=== PATIENT | female | born 1940 | race Caucasian/White ===

== ENCOUNTER 2017-12-13 22:48 | Emergency (ER) | payer OTHER ==
[~2017-12-13] VITALS: Ht 152.4 cm; Wt 107.9 kg
[2017-12-13 22:48] VITALS: TEMP 37.1; Ht 152.4 cm; Wt 107.9 kg
[~2017-12-13 22:48] MED LIST: ACET-1346 PO; ADVIN25/60 INH; APR25 PO; ASPCH81X PO; CITA40TA4 PO; CRG3125 PO; FERR325T18 PO; FSM70 PO; IPRASOL4 INH; LSX/80 PO; MICO1POW8 TOP; MULTCAP42 PO; NITR0.2D3 TD; OXGN; POTA20TA16 PO; PRED10TA PO; SKINCRE34 TOP; SPIR50TA2 PO; TIOTCAP INH
--- NOTE | 2017-12-13 23:30 | EMERGENCY ROOM VISIT NOTE ---
History Report prepared by Judith: Kathy Do Under the Supervision of: Dr. Laurita Rivas D.O. First contact with patient: 23:09 Chief Complaint: EYE ASSESSMENT Stated Complaint: EYE ASSESSMENT, PINK EYE History of Present Illness The patient is a 77 year old female who presents to the Emergency Room with complaints of an eye assessment. The patient reports that her vision in her left eye has been blurry and that this came on suddenly this afternoon. The patient also reports that her eye has been red and has had drainage. She rates the pain at a 5/10. She states that she has not had problems with her eye before and reports that she has not done anything out of the ordinary the last several days. She denies having a cough, chills, headache, nausea, and vomiting. The patient reports that she has Lupus and congestive heart failure. Source of History: patient Onset: this afternoon Position: eye (left) Symptom Intensity: rated at a 5/10 Quality: other (blurry vision, red, draining ) Timing: other (sudden) Associated Symptoms: No chills, No headache, No cough, No nausea, No vomiting Review of Systems See HPI for pertinent positives & negatives. A total of 10 systems reviewed and were otherwise negative. Past Medical & Surgical Medical Problems: (1) Anemia (2) CHF exacerbation (3) Chronic respiratory failure (4) CKD (chronic kidney disease) stage 3, GFR 30-59 ml/min (5) Depression (6) History of adenomatous polyp of colon (7) history of positive PPD (8) Hypertension (9) Hypertensive heart failure (10) Lupus (11) Osteoporosis (12) Restrictive lung disease (13) Sleep apnea (14) Systemic lupus erythematosus (15) UTI (urinary tract infection) (16) Weakness Surgical Problems: (1) History of - hysterectomy (2) History of - tubal ligation (3) History of appendectomy (4) History of cholecystectomy (5) History of tonsillectomy Family History Gallbladder disease Heart disease Hypertension Lung disease Social History Smoking Status: Former Smoker Alcohol Use: none Drug Use: none Marital Status: Occupation Status: retired Current/Historical Medications Scheduled Alendronate Sodium (Alendronate Sodium), 70 MG PO WK Aspirin (Aspirin Chewable), 81 MG PO DAILY Carvedilol (Carvedilol), 3.125 MG PO BID Citalopram (Citalopram Hydrobromide), 40 MG PO DAILY Eucerin (Eucerin), 1 APPLN TOP DIRECTED Ferrous Gluconate (Ferrous Gluconate), 1 TAB PO BID Fluticasone Prop/Salmeterol (Advair Diskus 250/50 60 Dose), 1 PUFF INH BID Furosemide (Lasix), 80 MG PO DAILY Home O2 Therapy (Oxygen), 2-3 LITERS NA CONTINOUS Hydralazine Hcl (Apresoline), 12.5 MG PO TID Miconazole Nitrate (Topical) (Miconazole Nitrate), 1 APPLN TOP DIRECTED Multiple Vitamin (Multivitamins), 1 CAP PO DAILY Nitroglycerin (Nitroglycerin Transdermal), 1 PATCH TD ONAMOFFPM Potassium Ext Rel (Klor-Con), 20 MEQ PO BID Prednisone (Prednisone), 10 MG PO DAILY Spironolactone (Aldactone), 50 MG PO DAILY Tiotropium [place] (Spiriva Handihaler), 1 CAP INH DAILY Scheduled PRN Acetaminophen (Acetaminophen), 650 MG PO Q4H PRN for Pain or Fever Ipratropium-Albuterol (Duoneb), 1 VIAL INH Q6H PRN for SOB/Wheezing Allergies Coded Allergies: No Known Allergies (Verified , 05/08/16) Physical Exam Vital Signs Date Time Temp Pulse Resp B/P (MAP) Pulse Ox O2 Delivery O2 Flow Rate FiO2 12/14/17 01:07 98 20 132/96 91 12/13/17 22:48 37.1 109 16 183/82 91 Nasal Cannula 2.0 Right Eye Acuity: 20/100 Left Eye Acuity: unmeasurable Physical Exam HEENT: Head - normocephalic and atraumatic. Pupils are equal, round, and reactive to light. Extraocular eye muscles are intact and sclera are anicteric. There is obvious scleral injection to the left eye. There are some small macular lesions noted below the left eye with some edema to the left eyelid. The eye is watering. Nose - moist nasal mucosa without discharge. Mouth - moist buccal mucosa. Oropharynx is nonerythematous and there is no tonsillar exudate or edema noted. Neck: Supple; no JVD, nuchal rigidity, cervical lymphadenopathy. Heart: Regular rate and rhythm. 2/6 systolic ejection murmur. Edgar best over pulmonic valve. Lungs: Clear to auscultation bilaterally with no wheezes, rales, or rhonchi. Abdomen: Soft, completely nontender, nondistended, with good bowel sounds. There are no palpable pulsatile masses or hepatosplenomegaly. There is no guarding, rigidity, or rebound noted. Extremities: No evidence of cyanosis or clubbing. Right lower extremity is edematous compared to the left. There are easily palpable peripheral pulses. Skin: Extremely scaly secondary to lupus. Medical Decision & Procedures Medications Administered Medications (Trade) Dose Ordered Sig/Reid Route Start Time Stop Time Status Last Admin Dose Admin Acetaminophen (Tylenol Tab) 1,000 mg NOW STAT PO 12/14/17 00:17 12/14/17 00:18 DC 12/14/17 00:22 1,000 MG Ciprofloxacin HCl (Ciprofloxacin 0.3% Op Soln) 2 drops NOW ONCE OPL 12/14/17 00:30 12/14/17 00:31 DC 12/14/17 00:21 2 DROPS Procedure Slit Lamp Examination Indication: Left eye irritation and blurry vision The left eye was prepped with topical proparacaine. Slit lamp examination was performed in the standard fashion. Cornea appeared to have a large corneal abrasion/ulceration at the 2 o'clock position with other superficial corneal abrasions over the entire cornea. The anterior chamber is quiet. Significant scleral injection is present. There is a large amount of yellow/bloody discharge present. A culture was taken fluorescein examination performed and revealed large corneal abrasion/ulceration. No foreign bodies noted. Negative Leona sign. The patient tolerated the procedure well without complication. Medications Tylenol Tab 1,000 mg PO. Ciprofloxacin HCl 2 drops OPL. ED Course 2314: Past medical records reviewed. The patient was evaluated in room B4B. A complete history and physical exam was performed. 0017: Ordered Tylenol Tab 1,000 mg PO. A slit-lamp exam was performed and revealed a large corneal abrasion/ulceration. 0030: Ordered Ciprofloxacin HCl 2 drops OPL. 0045: Upon reevaluation, the patient is resting. I discussed findings and results with her. She verbalized agreement of the treatment plan. She was discharged home. Medical Decision The patient is a 77 year old female who presents to the ED with an eye assessment. Differential diagnosis includes corneal foreign body, corneal laceration, conjunctivitis, pink eye, herpes ophthalmicus. This is a 77-year-old female patient with sudden onset of left eye irritation, burning, tearing, blurry vision and pain. The patient felt a foreign body sensation in the eye throughout the day. On physical exam, the patient has a fairly large corneal abrasion/ulceration around 2:00. There was a thick yellow/ bloody mucus coming from the eye. This was cultured. The lid was inverted and no foreign bodies were identified. I have some concern for the findings on slit-lamp examination. The patient does have a history of lupus. I have asked case management to work on ophthalmology follow- up later today. In the meantime, the patient will start Ciloxan eyedrops and use Tylenol for pain. Medication Reconcilliation Current Medication List: was personally reviewed by me Blood Pressure Screening Patient's blood pressure: Elevated blood pressure Blood pressure disposition: Elevated BP felt to be situational Impression Primary Impression: Corneal abrasion, left Scribe Attestation The scribe's documentation has been prepared under my direction and personally reviewed by me in its entirety. I confirm that the note above accurately reflects all work, treatment, procedures, and medical decision making performed by me. Departure Information Dispostion Home / Self-Care Referrals Joey Reyes MD (PCP) Jc Alford M.D. Forms HOME CARE DOCUMENTATION FORM, IMPORTANT VISIT INFORMATION, WORK / SCHOOL INSTRUCTIONS Patient Instructions ED Eye Injury Corneal Abrasion, [facility] Additional Instructions Rest Tylenol - 2 tabs. every 6 hours for pain. You will be contacted by Dr. Alford's office for appointment today Ciloxan eye drops - 2 drops to left eye every 4 hours Return to the ER if symptoms worsen Problem Qualifiers Primary Impression: Corneal abrasion, left Encounter type: initial encounter Qualified Codes: S05.02XA - Injury of conjunctiva and corneal abrasion without foreign body, left eye, initial encounter
[2017-12-13] MEDS ORDERED: PROPARACAINE HCL 0.5% OP SOLN 15 ML BTL OPL STA (23:31)
[2017-12-13] MEDS ORDERED: PROPARACAINE HCL 0.5% OP SOLN 15 ML BTL ONE (23:31)
[2017-12-14] MEDS ORDERED: ACETAMINOPHEN 500 MG TAB PO STA (00:17)
[2017-12-14] MEDS ORDERED: CIPROFLOXACIN HCL 0.3% OP SOLN 2.5 ML BTL OPL ONE (00:30)
[2017-12-14 01:07] VITALS: BP 132/96; PULSE 98; O2SAT 91
== END 2017-12-14 01:09 | disposition home or self-care (01) ==
LOC: EDBD 22:48 → C.EDB 22:49
DX: S05.02XA Injury of conjunctiva and corneal abrasion without foreign body, left eye, initial encounter (principal); X58.XXXA Exposure to other specified factors, initial encounter; D64.9 Anemia, unspecified; J96.10 Chronic respiratory failure, unspecified whether with hypoxia or hypercapnia; M32.9 Systemic lupus erythematosus, unspecified; F32.9 Major depressive disorder, single episode, unspecified; I13.0 Hypertensive heart and chronic kidney disease with heart failure and stage 1 through stage 4 chronic kidney disease, or unspecified chronic kidney disease; I50.9 Heart failure, unspecified; N18.3 Chronic kidney disease, stage 3 (moderate); M81.0 Age-related osteoporosis without current pathological fracture; G47.30 Sleep apnea, unspecified; Z79.82 Long term (current) use of aspirin; Z79.52 Long term (current) use of systemic steroids; Z99.81 Dependence on supplemental oxygen; Z98.51 Tubal ligation status; Z90.710 Acquired absence of both cervix and uterus; Z90.49 Acquired absence of other specified parts of digestive tract; Z86.010 Personal history of colon polyps; Z87.440 Personal history of urinary (tract) infections; Z87.891 Personal history of nicotine dependence; Z82.49 Family history of ischemic heart disease and other diseases of the circulatory system; Z83.79 Family history of other diseases of the digestive system; Z83.6 Family history of other diseases of the respiratory system

== ENCOUNTER 2019-09-07 23:48 | Inpatient (IN) ==
[2019-09-08] MEDS ORDERED: HYDROCORTISONE SOD SUCCINATE 100 MG/2 ML VIAL IV STA (00:02)
[2019-09-08] MEDS ORDERED: HYDROCORTISONE SOD SUCCINATE 100 MG/2 ML VIAL ONE (00:03)
[2019-09-08] MEDS ORDERED: METOPROLOL TARTRATE 1 MG/ML VIAL IV PRN (00:03)
[2019-09-08] MEDS ORDERED: FUROSEMIDE 40 MG/4 ML VIAL IV STA (00:05)
[2019-09-08] MEDS ORDERED: METOPROLOL TARTRATE 1 MG/ML VIAL IV ONE (00:05)
[2019-09-08] MEDS ORDERED: LIDOCAINE HCL 4% w/ Afrin 4 ML VIAL STA (00:08)
[2019-09-08] MEDS ORDERED: MAGNESIUM SULFATE / D5W 1 GM/100 ML BAG IV ONE (00:09)
[2019-09-08] MEDS ORDERED: NITROGLYCERIN 2% OINTMENT 30GM TUBE EXT STA (00:11)
[2019-09-08 00:17] LABS: Basophils # (auto) 0.01 K/uL (0-0.2); Basophils % (auto) 0.1 %; Eosinophils # (auto) 0.07 K/uL (0-0.5); Eosinophils % (auto) 0.4 %; Hematocrit (blood only) 40.9 % (37-47); Hemoglobin 13.3 g/dL (12.0-16.0); Immature Granulocytes # (auto) 0.14 K/uL (0.00-0.02); Immature Granulocytes % (auto) 0.8 %; Lymphocytes # (auto) 1.55 K/uL (1.2-3.4); Mean Corpuscular Hemoglobin 31.5 pg (25-34); Mean Corpuscular Hgb Conc 32.5 g/dL (32-36); Mean Corpuscular Volume 96.9 fL (80-100); Monocytes # (auto) 1.75 K/uL (0.11-0.59); Monocytes % (auto) 10.1 %; Neutrophils # (auto) 13.77 K/uL (1.4-6.5); Neutrophils % (auto) 79.6 %; Platelet Count 288 K/uL (130-400); RDW Coefficient of Variation 15.6 % (11.5-14.5); Red Blood Count 4.22 M/uL (4.2-5.4); White Blood Count 17.29 K/uL (4.8-10.8)
[2019-09-08 00:23] LABS: iSTAT Creatinine 1.7 mg/dl (0.6-1.3); iSTAT Hemoglobin 14.3 g/dl (12.0-16.0); iSTAT Ionized Calcium 1.11 mmol/l (1.12-1.32); iSTAT Potassium 4.9 mEq/L (3.3-5.0)
[2019-09-08] MEDS ORDERED: PIPERACILLIN/TAZOBACTAM 4.5 GM/120 ML BAG IV ONE (00:27)
[2019-09-08] MEDS ORDERED: PIPERACILL/TAZOBAC CONSULT ACTIVE PRN (00:27)
[2019-09-08] MEDS ORDERED: LEVOFLOXACIN/D5W 750 MG/150 ML BAG IV STA (00:27)
[2019-09-08 00:36] LABS: Alanine Aminotransferase 55 U/L (12-78); Albumin Level 2.9 gm/dl (3.4-5.0); Aspartate Aminotransferase 22 U/L (15-37); BUN Creatinine Ratio 43.1 (10-20); Blood Urea Nitrogen 74 mg/dl (7-18); Carbon Dioxide 28 mmol/L (21-32); Chloride 96 mmol/L (98-107); Creatinine Clr Calc Pharmacy 31.9 ml/min; Est GFR (African American) 32.7; Est GFR (Non-African American) 28.2; Glucose 200 mg/dl (70-99); Partial Thromboplastin Ratio 0.9; Partial Thromboplastin Time 23.1 Seconds (21.0-31.0); Potassium 4.8 mmol/L (3.5-5.1); Prothrombin Time 10.7 Seconds (9.0-12.0); Sodium 130 mmol/L (136-145)
[2019-09-08 00:41] LABS: Albumin Globulin Ratio 0.7 (0.9-2); Alkaline Phosphatase 121 U/L (45-117); Bilirubin,Total 1.1 mg/dl (0.2-1); Creatine Kinase 18 U/L (26-192); Creatine Kinase MB 1.3 ng/ml (0.5-3.6); NT Pro B Type Natriuretic Pept 3409 pg/ml (0-1800); Total Protein 6.9 gm/dl (6.4-8.2); Troponin I < 0.015 ng/ml (0-0.045)
[2019-09-08 01:01] LABS: Appearance Urine Turbid (Clear); Bacteria Urine Automated 4+ (Negative); Bilirubin Urine Negative (Negative); Blood Urine 2+ (Negative); Color Urine Yellow; Epithelial Cell Urine Auto >30 /lpf (0-5); Glucose Urine UA Negative (Negative); Ketones Urine Negative (Negative); Leukocyte Esterase Urine 3+ (Negative); Nitrite Urine Positive (Negative); Protein Urine Trace (Negative); Specific Gravity Urine 1.013 (1.000-1.030); Urobilinogen Urine Negative (Negative); WBC Urine Automated >30 /hpf (0-5); pH Urine 5.5 (4.5-7.5)
[2019-09-08] MEDS ORDERED: OPTIRAY 320 125ml IV PRN (01:15)
[2019-09-08] MEDS ORDERED: ONDANSETRON INJ 2 MG/ML 2 ML VIAL IV STA (01:44)
[2019-09-08] MEDS ORDERED: ONDANSETRON INJ 2 MG/ML 2 ML VIAL ONE (01:44)
[2019-09-08] MEDS ORDERED: XOPENEX/ATROVENT 1.25mg/0.5MG NEB COMBO NEB STA (01:53)
[2019-09-08] MEDS ORDERED: LEVALBUTEROL 1.25MG/0.5ML NEB INH STA (01:59)
[2019-09-08] MEDS ORDERED: IPRATROPIUM BROMIDE NEB SOLN 0.02% 2.5 ML VIAL INH STA (01:59)
[2019-09-08 02:03] LABS: Magnesium 2.6 mg/dl (1.8-2.4)
[2019-09-08 02:35] LABS: Base Excess ABG -6.1 mEq/L (-9-1.8); HCO3 ABG 20 mmol/L (19-24); PCO2 ABG 42 mmHg (35-46); PO2 ABG 85 mm/Hg (80-95)
[2019-09-08 02:36] LABS: Allen Test Pos (Pos)
[2019-09-08 02:47] LABS: Hematocrit (blood only) 38.2 % (37-47); Hemoglobin 12.4 g/dL (12.0-16.0)
[2019-09-08] MEDS ORDERED: DIGOXIN 500 MCG/2 ML AMP IV ONE (04:20)
[2019-09-08] MEDS ORDERED: DIGOXIN 250 MCG in SYRINGE 9 ML IV STA ×2 (04:20→05:50)
[2019-09-08] MEDS ORDERED: ALBUMIN 25% 50 ML IV ONE (04:20)
[2019-09-08] MEDS ORDERED: DEXAMETHASONE SOD PHOSPHATE 4 MG in SYRINGE 0 ML IV STA (04:26)
[2019-09-08] MEDS ORDERED: DEXAMETHASONE SOD INJ 4 MG/ML VIAL IV STA (04:28)
--- NOTE | 2019-09-08 04:47 | History & Physical Report ---
Date of Service September 08, 2019 Assessment & Plan (1) Respiratory failure: Acute on chronic hx chronic respiratory failure secondary to COPD/ILD as per records on home O2 Multifactorial : COPD exacerbation secondary to HCAP, rule out aspiration, possible sepsis, immunocompromised patient, history SLE on chronic steroid Rx Pulmonary congestion, hx chronic diastolic heart failure (EF 55 to 60%, TTE 2019) Epistaxis, currently resolved post anterior nasal packing status post patient removal at the ER New onset atrial flutter secondary to illness hypertension, BP on the lower side secondary to rapid atrial flutter Lopressor, Lasix, nitro administration at the ER contributory Possible adrenal insufficiency CRI, creatinine close to baseline DM2 on oral medications, suboptimal control as of recent hemoglobin A1c of 8.08 August 2019 Left renal mass on recent outpatient imaging, work-up contemplated outpatient Dementia past tobacco abuse PCU Supplemental O2 Cultures, Zosyn, Vancomycin Prednisone 40 mg daily for now, nebs RTC Pulmonary consult RE respiratory failure, COPD exacerbation Aspiration precautions for now, swallow eval TTE, Cardiology consult RE new onset atrial flutter Change Coreg to Lopressor given borderline BP and for beta-1 selectivity of latter medication, Digoxin as needed uncontrolled heart rate given borderline BP Additional diuretic Rx as per Cardiology Anticoagulation for thromboembolic prophylaxis for atrial flutter currently contraindicated by epistaxis Decadron 1 dose now for possible adrenal insufficiency Increase daily prednisone to 40 mg daily for now, may need IV steroids if BP continues to be low Remove topical nitro Trend H&H, transfuse PRBC if hemoglobin less than 8 and/or symptomatic anemia Appropriate to hold home aspirin for now given epistaxis ENT consultation if with further epistaxis episodes. Basal insulin, ISS BG goal [id number], carb count coverage DVT prophylaxis. SCDs DNR as per son/POA, Mr. Foster Breaux. He requests updates from providers thru [phone]. Total critical care time was 45 minutes. History of Present Illness Chief Complaint: Shortness of breath Primary Care Provider: Radha Armenta History obtained from patient, family, and records. Patient is a fair historian secondary to dementia. 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 Recent confinement May 2016 for decompensated heart failure. As per son, patient has been at the [facility] for about a month now due to increased functional disability. 3 weeks ago patient had a fall at the correction. Incidental finding of left renal mass possible malignancy on CT imaging. Dedicated CT study of the kidney contemplated as per records. Last night, epistaxis noted from patient's left nostril noted at correction. Minimal improvement with local measures, decongestant Rx. Patient complaining of cough symptoms with increasing shortness of breath unrelieved by breathing treatment administered at correction. Patient denies chest pain. Patient noted to be in rapid atrial flutter upon arrival at the ER. IV Lopressor given at the ER. Patient given Hydrocortisone, Levaquin, Zosyn. IV Lasix and Nitropaste given for possible CHF. Rhino Rocket nasal packing for epistaxis done at the ER by ER provider. Patient subsequently pulled out nasal packing. Medical History as above Surgical History : BTL, tibia surgery, appendectomy, cholecystectomy, tonsillectomy/adenoidectomy, ELICIA Family History : Bone cancer, breast cancer, lung cancer, heart disease, SLE Personal/Social history : Past tobacco abuse, no EtOH intake, retired from secretarial work, correction resident Allergies Allergy/AdvReac Type Severity Reaction Status Date / Time No Known Allergies Allergy Unknown Verified 09/08/19 00:35 Home Medications Home Medications Medication Instructions Recorded Confirmed Type acetaminophen 650 mg PO Q6H PRN MDD 3gm/24hr 09/08/19 09/08/19 History ascorbic acid (vitamin C) 1 g PO Q2D 09/08/19 09/08/19 History aspirin [Aspirin Childrens] 81 mg PO DAILY 09/08/19 09/08/19 History carvedilol 3.125 mg PO BID 09/08/19 09/08/19 History cholecalciferol (vitamin D3) 2,000 unit PO DAILY 09/08/19 09/08/19 History [Vitamin D3] citalopram 10 mg PO DAILY 09/08/19 09/08/19 History clotrimazole-betamethasone 1 applic TOPICAL QPM 09/08/19 09/08/19 History [Lotrisone] ferrous gluconate 324 mg PO BID 09/08/19 09/08/19 History fluticasone furoate-vilanterol 1 inh INHALATION DAILY 09/08/19 09/08/19 History [Breo Ellipta] furosemide [Lasix] 80 mg PO BID 09/08/19 09/08/19 History glipizide 5 mg PO BID 09/08/19 09/08/19 History ipratropium-albuterol 3 ml INHALATION Q6 PRN 09/08/19 09/08/19 History ipratropium-albuterol [Combivent 1 puff INHALATION Q6 PRN 09/08/19 09/08/19 History Respimat] linagliptin [Tradjenta] 5 mg PO DAILY 09/08/19 09/08/19 History melatonin 6 mg PO HS 09/08/19 09/08/19 History menthol-zinc oxide [Calmoseptine] 1 applic TOPICAL QS 09/08/19 09/08/19 History metolazone 2.5 mg PO Q7D 09/08/19 09/08/19 History nitroglycerin 1 patch TRANSDERMAL DAILY 09/08/19 09/08/19 History polyethylene glycol 3350 [Miralax] 17 g PO DAILY 09/08/19 09/08/19 History potassium chloride 20 meq PO Q7D 09/08/19 09/08/19 History prednisone 10 mg PO DAILY 09/08/19 09/08/19 History spironolactone 50 mg PO DAILY 09/08/19 09/08/19 History umeclidinium [Incruse Ellipta] 1 inh INHALATION DAILY 09/08/19 09/08/19 History Past Med/Surg History Social History Preferred Language: Afghan Communication Ability: Effective Beliefs That Will Affect Care: None Current Living Situation: Personal Care Facility Other Information That Helps Us Care for You: No Feels Safe at Home: Yes Safety Concerns: Feels Safe At This Time Smoking Status: Never smoker Hx Alcohol Use: No Hx Substance Use: No Review of Systems Review of Systems: As per HPI, all 10 systems reviewed, all other ROS negative Physical Exam Physical Exam: GENERAL: Slightly uncomfortable, oriented to place, obese, minimal respiratory distress SKIN: Normal color, warm HEENT: [place] palpebral conjunctivae, no ptosis, dried blood left nostril,, nasal cannula in place, dry buccal mucosa NECK : Supple, short neck, no tenderness CHEST : Decreased breath sounds, bilateral rhonchi left greater than the right, expiratory wheezes, no tenderness HEART : Tachycardic, no obvious murmurs ABDOMEN: Some distention, nontender EXTREMITIES : Minimal LE swelling, no LE tenderness, no other conspicuous deformities noted NEUROLOGIC : Coherent, oriented to time, no facial asymmetry, no other gross focality Results & Data Vital Signs (Past 12 Hours) Vital Signs Temp Pulse Pulse Resp BP Pulse Ox 09/08/19 04:22 131 H 09/08/19 03:30 112 H 25 H 89/69 L 95 09/08/19 03:17 122 H 23 89/69 L 95 09/08/19 03:01 121 H 32 H 80/41 L 95 09/08/19 03:00 133 H 18 93 09/08/19 02:31 127 H 24 93 09/08/19 02:30 121 H 33 H 90 09/08/19 02:27 112 H 18 96 09/08/19 02:01 104 H 29 H 114/67 93 09/08/19 02:00 105 H 23 09/08/19 01:31 117 H 20 92 09/08/19 01:30 110 H 24 114/80 92 09/08/19 01:15 104 H 26 H 90 09/08/19 01:08 103 H 33 H 123/74 91 09/08/19 01:07 118 H 09/08/19 00:45 106 H 25 H 93 09/08/19 00:40 109 H 23 93 09/08/19 00:30 121 H 22 91 09/08/19 00:27 117 H 22 90 09/08/19 00:20 112 H 22 93 09/08/19 00:14 150 H 110/74 09/08/19 00:10 124 H 24 93 09/08/19 00:02 162 H 23 130/54 L 92 09/08/19 00:01 165 H 21 92 09/07/19 23:59 36.6 C 162 H 22 115/81 92 09/07/19 23:55 134 H 15 92 09/07/19 23:52 159 H 20 70/32 L 92 Laboratory Results Laboratory Results WBC 17.29 K/uL (4.8-10.8) H 09/08/19 00:04 RBC 4.22 M/uL (4.2-5.4) 09/08/19 00:04 Hgb 12.4 g/dL (12.0-16.0) 09/08/19 02:24 POC Hgb 14.3 g/dl (12.0-16.0) 09/08/19 00:07 Hct 38.2 % (37-47) 12 02:24 POC Hct 42 % (37-47) 09/08/19 00:07 MCV 96.9 fL (80-100) 09/08/19 00:04 MCH 31.5 pg (25-34) 09/08/19 00:04 MCHC 32.5 g/dL (32-36) 09/08/19 00:04 RDW Std Deviation 55.0 fL (36.4-46.3) H 09/08/19 00:04 RDW Coeff of [place] 15.6 % (11.5-14.5) H 09/08/19 00:04 Plt Count 288 K/uL (130-400) 09/08/19 00:04 MPV 11.0 fL (7.4-10.4) H 09/08/19 00:04 Immature Gran % (Auto) 0.8 % 09/08/19 00:04 Neut % (Auto) 79.6 % 09/08/19 00:04 Lymph % (Auto) 9.0 % 09/08/19 00:04 [place] % (Auto) 10.1 % 09/08/19 00:04 Eos % (Auto) 0.4 % 09/08/19 00:04 Baso % (Auto) 0.1 % 09/08/19 00:04 Immature Gran # (Auto) 0.14 K/uL (0.00-0.02) H 09/08/19 00:04 Neut # (Auto) 13.77 K/uL (1.4-6.5) H 09/08/19 00:04 Lymph # (Auto) 1.55 K/uL (1.2-3.4) 09/08/19 00:04 [place] # (Auto) 1.75 K/uL (0.11-0.59) H 09/08/19 00:04 Eos # (Auto) 0.07 K/uL (0-0.5) 09/08/19 00:04 Baso # (Auto) 0.01 K/uL (0-0.2) 09/08/19 00:04 PT 10.7 Seconds (9.0-12.0) 09/08/19 00:04 INR 1.0 (0.9-1.1) 09/08/19 00:04 APTT 23.1 Seconds (21.0-31.0) 09/08/19 00:04 PTT Ratio 0.9 09/08/19 00:04 ABG pH 7.30 (7.35-7.45) L 09/08/19 02:24 ABG pCO2 42 mmHg (35-46) 09/08/19 02:24 ABG pO2 85 mm/Hg (80-95) 09/08/19 02:24 ABG HCO3 20 mmol/L (19-24) 09/08/19 02:24 ABG O2 Saturation 96.0 % (90-95) H 09/08/19 02:24 ABG Base Excess -6.1 mEq/L (-9-1.8) 09/08/19 02:24 Michael Test Pos (Pos) 09/08/19 02:24 Barometric Pressure 733.9 mm/Hg 09/08/19 02:24 Oxygen Given 5L O2 09/08/19 02:24 POC Sodium 130 mEq/L (135-144) L 09/08/19 00:07 Sodium 130 mmol/L (136-145) L 09/08/19 00:04 POC Potassium 4.9 mEq/L (3.3-5.0) 09/08/19 00:07 Potassium 4.8 mmol/L (3.5-5.1) 09/08/19 00:04 POC Chloride 96 mEq/L (101-112) L 09/08/19 00:07 Chloride 96 mmol/L (98-107) L 09/08/19 00:04 Carbon Dioxide 28 mmol/L (21-32) 09/08/19 00:04 POC Total CO2 28 mEq/l (24-31) 09/08/19 00:07 Anion Gap 6.0 (3-11) 09/08/19 00:04 POC Anion Gap 12.0 mmol/L (16-25) L 09/08/19 00:07 POC BUN 73 mg/dl (7-18) H 09/08/19 00:07 BUN 74 mg/dl (7-18) H 09/08/19 00:04 Creatinine 1.71 mg/dl (0.6-1.2) H 09/08/19 00:04 POC Creatinine 1.7 mg/dl (0.6-1.3) H 09/08/19 00:07 Est Cr Clr Drug Dosing 31.9 ml/min 09/08/19 00:04 Est GFR ( Amer) 32.7 09/08/19 00:04 Est GFR (Non-Af Amer) 28.2 09/08/19 00:04 BUN/Creatinine Ratio 43.1 (10-20) H 09/08/19 00:04 Glucose 200 mg/dl (70-99) H 09/08/19 00:04 POC Glucose (other) 202 mg/dl (70-99) H 09/08/19 00:07 Lactate 1.8 mmol/L (0.4-2.0) 09/08/19 00:41 Calcium 9.0 mg/dl (8.5-10.1) 09/08/19 00:04 POC Ioniz Calcium [place] 1.11 mmol/l (1.12-1.32) L 09/08/19 00:07 Magnesium 2.6 mg/dl (1.8-2.4) H 09/08/19 00:04 Total Bilirubin 1.1 mg/dl (0.2-1) H 09/08/19 00:04 AST 22 U/L (15-37) 09/08/19 00:04 ALT 55 U/L (12-78) 09/08/19 00:04 Alkaline Phosphatase 121 U/L (45-117) H 09/08/19 00:04 Total Creatine Kinase 18 U/L (26-192) L 09/08/19 00:04 CK-MB (CK-2) 1.3 ng/ml (0.5-3.6) 09/08/19 00:04 CK/CKMB % Calc 7.2 (0-3.0) H 09/08/19 00:04 Troponin I < 0.015 ng/ml (0-0.045) 09/08/19 00:04 NT-Pro-B Natriuret Pep 3409 pg/ml (0-1800) H 09/08/19 00:04 Total Protein 6.9 gm/dl (6.4-8.2) 09/08/19 00:04 Albumin 2.9 gm/dl (3.4-5.0) L 09/08/19 00:04 Globulin 4.0 gm/dl (2.5-4.0) 09/08/19 00:04 Albumin/Globulin Ratio 0.7 (0.9-2) L 09/08/19 00:04 Urine Color Yellow 09/08/19 00:32 Urine Appearance Turbid (Clear) A 09/08/19 00:32 Urine pH 5.5 (4.5-7.5) 09/08/19 00:32 Ur Specific [place] 1.013 (1.000-1.030) 09/08/19 00:32 Urine Protein Trace (Negative) H 09/08/19 00:32 Urine Glucose (UA) Negative (Negative) 09/08/19 00:32 Urine Ketones Negative (Negative) 09/08/19 00:32 Urine Blood 2+ (Negative) H 09/08/19 00:32 Urine Nitrite Positive (Negative) A 09/08/19 00:32 Urine Bilirubin Negative (Negative) 09/08/19 00:32 Urine Urobilinogen Negative (Negative) 09/08/19 00:32 Ur Leukocyte Esterase 3+ (Negative) H 09/08/19 00:32 Urine WBC (Auto) >30 /hpf (0-5) H 09/08/19 00:32 Urine RBC (Auto) 10-30 /hpf (0-4) H 09/08/19 00:32 U Hyaline Cast (Auto) 1-5 /lpf (0-5) 09/08/19 00:32 U Epithel Cells (Auto) >30 /lpf (0-5) H 09/08/19 00:32 Urine Bacteria (Auto) 4+ (Negative) H 09/08/19 00:32 Blood Type O Positive 09/08/19 02:24 Antibody Screen NEGATIVE 09/08/19 02:[address] chest initial read small bilateral pleural effusions. Atelectasis. Left anterolateral 3-7 rib fractures. Mild pleural thickening. No pulmonary embolism. No right heart strain. Ectatic ascending aorta 3.7 cm. Left greater than the right coronary calcification. Patchy opacities right upper lung, left lung lobe, right middle lobe and bilateral perihilar region., Hypertropic right adrenal. Right epicardial lymph node EKG as per my interpretation rate 150, atrial flutter, LBBB
[2019-09-08 05:31] LABS: Influenza A virus by PCR Neg for Influ A (Neg); Influenza B virus by PCR Neg for Influ B (Neg)
[2019-09-08] MEDS ORDERED: NITROGLYCERIN SL 0.4 MG/TAB TAB SL PRN (05:50)
[2019-09-08] MEDS ORDERED: GLUCAGON FOR INJ 1 MG VIAL SQ PRN (05:50)
[2019-09-08] MEDS ORDERED: ACETAMINOPHEN 325 MG TAB PO PRN (05:50)
[2019-09-08] MEDS ORDERED: GLUCOSE 10 TABS/TUBE PO PRN (05:50)
[2019-09-08] MEDS ORDERED: DEXTROSE 50% 50 ML SYRINGE IV PRN (05:50)
[2019-09-08] MEDS ORDERED: PROMETHAZINE HCL 12.5 MG in SODIUM CHLORIDE 0.9% 50 ML IV PRN (05:50)
[2019-09-08] MEDS ORDERED: CARBOHYDRATES FOR HYPOGLYCEMIA PO PRN (05:50)
[2019-09-08] MEDS ORDERED: INSULIN GLARGINE SOLOSTAR 100 UNITS/ML 3 ML PEN SC STA (05:50)
[2019-09-08] MEDS ORDERED: GLUCOSE 40% GEL 15 GM TUBE PO PRN (05:50)
[2019-09-08] MEDS ORDERED: CONSULT PHARMACY STA (05:50)
[2019-09-08] MEDS ORDERED: VANCOMYCIN CONSULT ACTIVE PRN (06:02)
--- NOTE | 2019-09-08 06:24 | XRay Report ---
XR chest 1V portable CLINICAL HISTORY: Sepsis dyspnea COMPARISON STUDY: 05/08/2016 FINDINGS: Increased cardiac size. Bibasilar parenchymal infiltrates versus congestive failure. Pulmon cong apices are clear. IMPRESSION: Bibasilar parenchymal infiltrates versus congestive heart failure. The above report was generated using voice recognition software. It may contain grammatical, syntax or spelling errors. Electronically signed by: Tavares Coe M.D. 09/08/2019 6:23 AM
[2019-09-08] MEDS ORDERED: VANCOMYCIN HCL 2,500 MG in SODIUM CHLORIDE 0.9% 500 ML IV SCH (06:30)
[2019-09-08] MEDS: INSULIN ASPART 100 UNITS/ML 3 ML PEN SC SCH ×4 (06:32→22:27)
--- NOTE | 2019-09-08 06:55 | CT Scan Report ---
CT angio chest PE protocol CT DOSE: 857.52 mGy.cm HISTORY: 78 years-old Female with PE. Acute shortness of breath with chest pain TECHNIQUE: Multiple CTA images of the chest were obtained after the intravenous administration of 86 ml Optiray 320. Coronal and sagittal MIPS were obtained from the axial data set and were submitted f or review. All measurements were obtained according to NASCET criteria. A dose lowering technique wa s utilized adhering to the principles of ALARA. COMPARISON: Chest radiograph of same day, chest CT 06/30/2013 FINDINGS: CTA: Moderate cardiomegaly. No pericardial effusion. The left heart structures are not well opacified seco ndary to contrast bolus timing. Aortic annular and coronary arterial calcifications are noted. No tho racic aortic aneurysm identified. Extensive calcified plaque of the thoracic aorta. Reflux of contras t into the IVC and hepatic veins. The pulmonary artery is opacified to the subsegmental branches. The distal segmental and subsegmental branches, notably within the lung bases are suboptimally evaluated secondary to respiratory motion artifact. No filling defects identified to suggest pulmonary thrombo embolic disease. CT CHEST: Unremarkable thyroid. No mediastinal or hilar adenopathy. 6 mm lymph node versus vessel of the medial subpleural fat distribution on image 140 series 4. Prominent bilateral epicardial fat pads. 2.0 x 1. 1 cm lymph node of the right epicardial fat pad on image 79 series 4 previously measured 7 x 4 mm on the 2013 exam. Trace right and small left pleural effusions. Bilateral bronchial wall thickening. Dependent left bas ilar consolidation suggests compressive atelectasis. Patchy groundglass with nodular consolidative op acities are present within all lobes bilaterally. Mild bilateral subpleural reticulation suggest asso ciated fibrotic changes. Consolidation of the lingula and right middle lobe is also present. Decrease d AP dimension of the trachea and bronchi with tracheobronchial secretions. No acute process of the i araseli upper abdomen. Mild thickening of the bilateral adrenal glands suggests adrenal hyperplasia. Mack bacute healing anterolateral left third through seventh rib fractures. Healed remote right-sided rib fractures. IMPRESSION: 1. Cardiomegaly without evidence of pulmonary thromboembolic disease. 2. Trace right and small left pleural effusions with mild left basilar compressive atelectasis. 3. Multilobar patchy nodular consolidative and groundglass opacities suggest multifocal pneumonia. 4. Tracheomalacia with tracheobronchial secretions. 5. Enlarged lymph node of the right epicardial fat pad, 2.0 x 1.1 cm. 6. Healing subacute nondisplaced fractures of the anterolateral left third through seventh ribs. The above report was generated using voice recognition software. It may contain grammatical, syntax o r spelling errors. Electronically signed by: Jamil Ta M.D. 09/08/2019 6:53 AM
[2019-09-08] MEDS ORDERED: XOPENEX/ATROVENT 1.25mg/0.5MG NEB COMBO NEB SCH (07:00)
[2019-09-08] MEDS: LEVALBUTEROL 1.25MG/0.5ML NEB INH SCH ×3 (07:11→19:13)
[2019-09-08] MEDS: IPRATROPIUM BROMIDE NEB SOLN 0.02% 2.5 ML VIAL INH SCH ×3 (07:11→19:13)
[2019-09-08] MEDS: PIPERACILLIN/TAZOBACTAM 4.5 GM in DEXTROSE 5% 100 ML IV SCH ×3 (08:13→22:48)
[2019-09-08] MEDS: CITALOPRAM 20 MG TAB PO SCH (08:15)
[2019-09-08] MEDS: METOPROLOL TARTRATE 25 MG TAB PO SCH ×2 (08:15→21:26)
[2019-09-08 08:28] LABS: Hemoglobin 11.7 g/dL (12.0-16.0)
--- NOTE | 2019-09-08 08:47 | Pharmacy Report ---
Pharmacy Abx Initial Consult - Date of Service September 08, 2019 - Pharmacy Dosing Scope Date of Consult: 09/08/19 Consultation requested by: Dr. Anders Pharmacy is consulted to initiate Vancomycin + Zosyn IV/PO dosing therapy, order appropriate labs and adjust drug dose/frequency. - Subjective The patient is a 78 year old F admitted on 09/08/19 04:50. - Objective Height: 5 ft Weight: 102.3 kg Vital Signs (Past 12hrs): Vital Signs Temp Pulse Pulse Resp BP BP Pulse Ox 09/08/19 07:15 69 18 98 09/08/19 07:03 36.5 C 98 H 20 118/77 96 09/08/19 06:31 105 H 09/08/19 05:40 36.8 C 99 H 18 113/75 96 09/08/19 05:05 102 H 28 H 97/61 L 94 09/08/19 05:00 117 H 20 95 09/08/19 04:31 117 H 31 H 95/65 L 95 09/08/19 04:30 124 H 29 H 95 09/08/19 04:22 131 H 09/08/19 04:01 125 H 29 H 90/60 L 94 09/08/19 04:00 139 H 28 H 95 09/08/19 03:50 105 H 32 H 92/45 L 95 09/08/19 03:30 112 H 25 H 89/69 L 95 09/08/19 03:17 122 H 23 89/69 L 95 09/08/19 03:01 121 H 32 H 80/41 L 95 09/08/19 03:00 133 H 18 93 09/08/19 02:31 127 H 24 93 09/08/19 02:30 121 H 33 H 90 09/08/19 02:27 112 H 18 96 09/08/19 02:01 104 H 29 H 114/67 93 09/08/19 02:00 105 H 23 09/08/19 01:31 117 H 20 92 09/08/19 01:30 110 H 24 114/80 92 09/08/19 01:15 104 H 26 H 90 09/08/19 01:08 103 H 33 H 123/74 91 09/08/19 01:07 118 H 09/08/19 00:45 106 H 25 H 93 09/08/19 00:40 109 H 23 93 09/08/19 00:30 121 H 22 91 09/08/19 00:27 117 H 22 90 09/08/19 00:20 112 H 22 93 09/08/19 00:14 150 H 110/74 09/08/19 00:10 124 H 24 93 09/08/19 00:02 162 H 23 130/54 L 92 09/08/19 00:01 165 H 21 92 09/07/19 23:59 36.6 C 162 H 22 115/81 92 09/07/19 23:55 134 H 15 92 09/07/19 23:52 159 H 20 70/32 L 92 Lab Results (24hrs): Laboratory Tests (24 Hours) 09/08/19 09/08/19 00:04 00:04 WBC 17.29 H Neut # (Auto) 13.77 H Creatinine 1.71 H Est Cr Clr Drug Dosing 31.9 Total Creatine Kinase 18 L Micro Results: 09/08/19 00:41 Aerobic Blood Culture - Pending Blood Anaerobic Blood Culture - Pending 09/08/19 00:30 Aerobic Blood Culture - Pending Blood Anaerobic Blood Culture - Pending Microbiology 09/06/19 04:30 Urine,Clean Catch Urine Culture - Preliminary Citrobacter freundii Gram negative bacilli#2 - Risk Factors for Resistance * Resident in a longterm or extended-care facility * Hospitalization for 48 hours or more within the past 90 days - Assessment & Plan Assessment 78 year old F initiated on IV Vancomycin + Zosyn for pneumonia vs UTI Scr sightly above baseline. Combination of vanco + zosyn can increase risk for RALEIGH. Will monitor levels closely. Morbid obesity increases risk of vancomycin accumulation and supratherapeutic levels Plan Vancomycin IV * Estimated PK Parameters: Vd 0.55 L/kg, Jarrod 0.025 hr-1, t1/2 27.7 hr * Loading dose: 2,500 mg (24 mg/kg) * Maintenance dose: 1,500 mg IV (15 mg/kg) every 24 hours {AUC dosing nomogram} * Goal trough level for Pulm : 15 to 20 mcg/mL * Trough/Random level ordered for 09/11/19 @ 0530 {prior to 3rd maintenance dose} * MRSA nasal swab negative --> can consider d/c vanco since unlikely to be MRSA PNA Piperacillin/tazobactam * 4.5 g bolus administered over 30 minutes, then 4.5 g IV extended infusion every 8 hours for CrCl greater than 20 mL/min OR every 12 hours for CrCl 20 mL/min or less and dialysis. * Aggressive dosing selected due to BMI 35 or more Pharmacy will continue to follow and will adjust dose/frequency as necessary. Thank you.
[2019-09-08] MEDS ORDERED: METOPROLOL TARTRATE 25 MG TAB PO SCH (09:00)
[2019-09-08] MEDS ORDERED: methylPREDNISolone 40 MG in SYRINGE 0 ML IV SCH (09:00)
[2019-09-08] MEDS: predniSONE 20 MG TAB PO SCH (13:08)
[2019-09-08] MEDS ORDERED: POLYETHYLENE (MIRALAX) 17 GM PACK PO PRN (14:57)
--- NOTE | 2019-09-08 15:22 | Hospitalist Progress Note ---
Date of Service September 08, 2019 Assessment & Plan (1) Respiratory failure: Acute on chronic respiratory failure with hypoxia Multifactorial: Healthcare associated pneumonia, Chronic diastolic CHF, COPD, obstructive sleep apnea Chronic oxygen dependency: 2 L while awake and 3 L at bedtime at baseline --CTA:Cardiomegaly without evidence of pulmonary thromboembolic disease. Trace right and small left pleural effusions with mild left basilar compressive atelectasis. Multilobar patchy nodular consolidative and groundglass opacities suggest multifocal pneumonia. Tracheomalacia with tracheobronchial secretions. Enlarged lymph node of the right epicardial fat pad, 2.0 x 1.1 cm. Healing s ubacute nondisplaced fractures of the anterolateral left third through seventh ribs. --Normal lactate levels --Blood Culture:Pending --Negative MRSA Screen --Check sputum culture --IV vancomycin discontinued --Continue Zosyn Day #1 --Pulmonary Hygiene --Continue bronchodilators, prednisone --Titrate oxygen to keep oxygen saturation > 90 --Consider pulmonary evaluation if no improvement Urinary tract infection Urine culture: Citrobacter, Proteus--pansensitive Continue Zosyn as above Atrial flutter with rapid ventricular response--New Onset in setting of acute infection Currently rate controlled On Coreg at home Started on metoprolol 25 mg BID No anticoagulation for now secondary to epistaxis Cardiology consulted Update ECHO Epistaxis Had nasal packing while in ED--patient removed voluntarily Aspirin on hold Hemoglobin at baseline Chronic diastolic heart failure Slightly volume overload on exam Home p.o. diuretics held Received IV Lasix Monitor I's and O's, daily weight, electrolytes Restart home diuretics as able H/O SLE On chronic prednisone 10 mg daily Hypertension Blood pressure is relatively low Coreg, NTG on hold Check random cortisol Monitor Chronic anemia H/O iron deficiency, anemia of chronic disease Hb at baseline Monitor CKD III Baseline Cr: Mid to high 1s Monitor renal function Avoid nephrotoxic agents as able DM II HbA1C: 8.5 Hold Oral meds Continue insulin therapy while hospitalized Hyponatremia Hypochloremia Likely secondary to diuretics Monitor electrolytes DVT Px: SCDs Re: Epistaxis Code Status DNI/DNR Disposition PT/OT prior to discharge Subjective Patient is seen and examined at bedside Shortness of breath slightly improved from the time of admission States having dry cough Denies any chest pain, nausea, abdominal pain Reports intermittent dizziness No active nosebleed Review of Systems Review of Systems: All systems reviewed & are unremarkable except as noted in HPI & below Physical Exam Physical Exam: Physical Exam: Vitals signs as noted above General Appearance: Morbidly obese, no apparent distress Head: normocephalic, Atraumatic Eyes: normal inspection, EOMI Neck: supple, Trachea midline Respiratory/Chest: Decreased coarse breath sounds, bilateral crackles Cardiovascular: Irregularly irregular, No murmur Abdomen/GI:Soft, Non tender, Bowel sounds present Extremities/Musculoskelatal:normal inspection, B/L LE edema Neurologic/Psych:AAOX3, grossly no focal neurological deficits Skin: normal color, warm Results & Data Vital Signs (Past 12 Hours) Vital Signs Temp Pulse Pulse Resp BP BP Pulse Ox 09/08/19 14:04 77 16 98 09/08/19 11:22 36.4 C L 75 18 98/65 L 97 09/08/19 07:15 69 18 98 09/08/19 07:03 36.5 C 98 H 20 118/77 96 09/08/19 06:31 105 H 09/08/19 05:40 36.8 C 99 H 18 113/75 96 09/08/19 05:05 102 H 28 H 97/61 L 94 09/08/19 05:00 117 H 20 95 09/08/19 04:31 117 H 31 H 95/65 L 95 09/08/19 04:30 124 H 29 H 95 09/08/19 04:22 131 H 09/08/19 04:01 125 H 29 H 90/60 L 94 09/08/19 04:00 139 H 28 H 95 09/08/19 03:50 105 H 32 H 92/45 L 95 09/08/19 03:30 112 H 25 H 89/69 L 95 09/08/19 03:17 122 H 23 89/69 L 95 09/08/19 03:01 121 H 32 H 80/41 L 95 09/08/19 03:00 133 H 18 93 Laboratory Results Short CBC 09/08/19 09/08/19 09/08/19 Range/Units 00:04 02:24 08:14 WBC 17.29 H (4.8-10.8) K/uL Hgb 13.3 12.4 11.7 L (12.0-16.0) g/dL Hct 40.9 38.2 37.0 (37-47) % Plt Count 288 (130-400) K/uL BMP 09/08/19 00:04 Sodium 130 L Potassium 4.8 Chloride 96 L Carbon Dioxide 28 BUN 74 H Creatinine 1.71 H Glucose 200 H Calcium 9.0 Cardiac Enzymes 09/08/19 Range/Units 00:04 Total Creatine Kinase 18 L (26-192) U/L CK-MB (CK-2) 1.3 (0.5-3.6) ng/ml Troponin I < 0.015 (0-0.045) ng/ml Liver Function 09/08/19 Range/Units 00:04 Total Bilirubin 1.1 H (0.2-1) mg/dl AST 22 (15-37) U/L ALT 55 (12-78) U/L Alkaline Phosphatase 121 H (45-117) U/L Albumin 2.9 L (3.4-5.0) gm/dl Urine 09/08/19 Range/Units 00:32 Urine Color Yellow Urine Appearance Turbid A (Clear) Urine pH 5.5 (4.5-7.5) Ur Specific [place] 1.013 (1.000-1.030) Urine Protein Trace H (Negative) Urine Glucose (UA) Negative (Negative)
[2019-09-08] MEDS: ACETAMINOPHEN 325 MG TAB PO PRN (16:05)
[2019-09-08] MEDS: TRAMADOL HCL 50 MG TABLET PO PRN (17:33)
[2019-09-08] MEDS ORDERED: OXYCODONE/ACETAMINOPHEN 5mg/325mg TAB PO PRN (19:04)
--- NOTE | 2019-09-08 19:53 | Cardiology Consultation ---
Date of Consultation September 08, 2019 Assessment & Plan (1) Tachycardia: (2) Chronic diastolic heart failure: (3) LBBB (left bundle branch block): Patient has a history of chronic left bundle branch block with mild LV systolic dysfunction to normal LV function based on past echocardiograms. She was admitted with an acute episode of epistaxis, nasal packing had been administered and has since been removed with resolution of the bleeding. Tachycardia noted on presentation, the presenting EKG suggests atrial flutter, but on review of telemetry, when her heart rate start to slow down, it appears to be more consistent with possible sinus rhythm with frequent PACs. At present telemetry is certainly consistent with sinus rhythm, first-degree AV block, and left bundle branch block. A repeat EKG will be obtained in the morning of 09/09/2019 which I think will be helpful now that her heart rate is lower. It could be that her heart rate was simply elevated because of her distress related to the epistaxis and not feeling well. She has a history of chronic respiratory insufficiency with interstitial lung disease as well as diastolic heart failure. Her CT suggestive of small bilateral pleural effusions. Her baseline creatinine appears to be in the range of 1.6-1.7 not too much different from what is noted at present, her BUN however is elevated this may be related to her epistaxis as well it sounds like she suffered this for quite some time. At present we will continue her current dose of metoprolol which is being administered in place of her prior to hospital carvedilol. I have ordered furosemide 20 mg daily to start the morning of 09/09/2019, her sodium, and creatinine will need to be trended. If she is found to have paroxysmal atrial fibrillation or atrial flutter, would hold off on anticoagulation of course because of her recent significant epistaxis episode. Continue broad-spectrum antibiotics for now for pneumonia and suspected UTI, recommend transitioning to an alternative antibiotic to Zosyn as soon as possible due to the fluid and sodium load associated with this medication. History of Present Illness Attending Physician: Spencer Escalona MD History of Present Illness Blanche Breaux is a 78 year old female seen in cardiology consultation per the request of Dr. Black for the evaluation of shortness of breath and atrial flutter. Patient was transferred from [facility] to the ED at [facility] during the microsoft developer hours of 09/08/19 for concerns of shortness of breath, and she was also observed to have atrial flutter with rapid ventricular response on presentation to the emergency room. Nasal packing was placed due to epistaxis. She received 80 mg of IV furosemide at 12:15 AM on 09/08/19 with 1.4 L of urine output subsequently. The patient's most recent outpatient cardiology visit had been on 08/02/2019 with Earline Gallegos PA-C of our practice. The note describes that she has chronic dementia at baseline. When asked the patient, she could not remember why she came to the hospital other than her nosebleed. Her past medical history is notable for diastolic congestive heart failure, predominantly right-sided, chronic left bundle branch block, COPD with history of pulmonary fibrosis for which she is on supplementary oxygen, chronic renal insufficiency, hypertension, SLE, obesity. Allergies Allergy/AdvReac Type Severity Reaction Status Date / Time No Known Allergies Allergy Unknown Verified 09/08/19 00:35 Home Medications Home Medications Medication Instructions Recorded Confirmed Type acetaminophen 650 mg PO Q6H PRN MDD 3gm/24hr 09/08/19 09/08/19 History ascorbic acid (vitamin C) 1 g PO Q2D 09/08/19 09/08/19 History aspirin [Aspirin Childrens] 81 mg PO DAILY 09/08/19 09/08/19 History carvedilol 3.125 mg PO BID 09/08/19 09/08/19 History cholecalciferol (vitamin D3) 2,000 unit PO DAILY 09/08/19 09/08/19 History [Vitamin D3] citalopram 10 mg PO DAILY 09/08/19 09/08/19 History clotrimazole-betamethasone 1 applic TOPICAL QPM 09/08/19 09/08/19 History [Lotrisone] ferrous gluconate 324 mg PO BID 09/08/19 09/08/19 History fluticasone furoate-vilanterol 1 inh INHALATION DAILY 09/08/19 09/08/19 History [Breo Ellipta] furosemide [Lasix] 80 mg PO BID 09/08/19 09/08/19 History glipizide 5 mg PO BID 09/08/19 09/08/19 History ipratropium-albuterol 3 ml INHALATION Q6 PRN 09/08/19 09/08/19 History ipratropium-albuterol [Combivent 1 puff INHALATION Q6 PRN 09/08/19 09/08/19 History Respimat] linagliptin [Tradjenta] 5 mg PO DAILY 09/08/19 09/08/19 History melatonin 6 mg PO HS 09/08/19 09/08/19 History menthol-zinc oxide [Calmoseptine] 1 applic TOPICAL QS 09/08/19 09/08/19 History metolazone 2.5 mg PO Q7D 09/08/19 09/08/19 History nitroglycerin 1 patch TRANSDERMAL DAILY 09/08/19 09/08/19 History polyethylene glycol 3350 [Miralax] 17 g PO DAILY 09/08/19 09/08/19 History potassium chloride 20 meq PO Q7D 09/08/19 09/08/19 History prednisone 10 mg PO DAILY 09/08/19 09/08/19 History spironolactone 50 mg PO DAILY 09/08/19 09/08/19 History umeclidinium [Incruse Ellipta] 1 inh INHALATION DAILY 09/08/19 09/08/19 History Patient History Social History Preferred Language: Luxembourger Communication Ability: Effective Beliefs That Will Affect Care: None Current Living Situation: Personal Care Facility Other Information That Helps Us Care for You: No Feels Safe at Home: Yes Safety Concerns: Feels Safe At This Time Smoking Status: Never smoker Hx Alcohol Use: No Hx Substance Use: No Review of Systems Review of Systems: Unobtainable due to cognitive status Physical Exam Physical Exam: Temp Pulse Resp BP Pulse Ox 36.6 C 73 18 114/74 94 09/08/19 19:13 09/08/19 19:13 09/08/19 19:13 09/08/19 19:13 09/08/19 19:13 Constitutional: + obese Respiratory: Coarse breath sounds throughout Cardiovascular: Rate/Rhythm: regular rate Heart Sounds: no murmur Vessels: no JVD Chronic lower extremity venous stasis changes Neurologic: Follows commands, cognitive impairment noted Results & Data Vital Signs (Past 12 Hours) Vital Signs Temp Pulse Resp BP Pulse Ox 09/08/19 19:13 36.6 C 73 18 114/74 94 09/08/19 15:24 37.0 C 79 18 96/62 L 96 09/08/19 14:04 77 16 98 09/08/19 11:22 36.4 C L 75 18 98/65 L 97 Laboratory Results Cardiac Enzymes 09/08/19 Range/Units 00:04 AST 22 (15-37) U/L CK-MB (CK-2) 1.3 (0.5-3.6) ng/ml Troponin I < 0.015 (0-0.045) ng/ml Coagulation 09/08/19 Range/Units 00:04 PT 10.7 (9.0-12.0) Seconds APTT 23.1 (21.0-31.0) Seconds CBC 09/08/19 09/08/19 09/08/19 Range/Units 00:04 02:24 08:14 WBC 17.29 H (4.8-10.8) K/uL RBC 4.22 (4.2-5.4) M/uL Hgb 13.3 12.4 11.7 L (12.0-16.0) g/dL Hct 40.9 38.2 37.0 (37-47) % Plt Count 288 (130-400) K/uL Neut # (Auto) 13.77 H (1.4-6.5) K/uL Lymph # (Auto) 1.55 (1.2-3.4) K/uL [place] # (Auto) 1.75 H (0.11-0.59) K/uL Eos # (Auto) 0.07 (0-0.5) K/uL Baso # (Auto) 0.01 (0-0.2) K/uL Comprehensive Metabolic Panel 09/08/19 Range/Units 00:04 Sodium 130 L (136-145) mmol/L Potassium 4.8 (3.5-5.1) mmol/L Chloride 96 L (98-107) mmol/L Carbon Dioxide 28 (21-32) mmol/L BUN 74 H (7-18) mg/dl Creatinine 1.71 H (0.6-1.2) mg/dl Glucose 200 H (70-99) mg/dl Calcium 9.0 (8.5-10.1) mg/dl AST 22 (15-37) U/L ALT 55 (12-78) U/L Alkaline Phosphatase 121 H (45-117) U/L Total Protein 6.9 (6.4-8.2) gm/dl Albumin 2.9 L (3.4-5.0) gm/dl Intake and Output 09/08/19 09/08/19 09/08/19 06:59 14:59 22:59 Intake Total 420 / 420 870 / 990 120 / 990 Output Total 1450 / 1450 Balance 420 / 420 -580 / -460 120 / -460 Intake: IV 420 / 420 670 / 790 120 / 790 Albumin 25% 50 ml @ 50 mls/hr 50 / 50 IV ONE ONE Rx#:[id number] LEVAQUIN/D5W 750 mg In 150 ml @ 150 / 150 100 mls/hr IV NOW STA Rx#: [id number] MAGNESIUM SULFATE / D5W 1 gm In 100 / 100 100 ml @ 100 mls/hr IV ONE ONE Rx#:[id number] ZOSYN 4.5 gm In 120 ml @ 240 120 / 120 mls/hr IV NOW ONE Rx#:[id number] Zosyn 4.5 gm In D5 100 ml @ 30 120 / 240 120 / 240 mls/hr IV Q8H [facility] Rx#:[id number] Vancomycin HCl 2,500 mg In Nss 550 / 550 500 ml @ 200 mls/hr IV TODAY@ 0630 [facility] Rx#:[id number] Oral 0 / 0 200 / 200 Output: Urine Amount (Catheter) 1450 / 1450 Herrera/Indwelling 1450 / 1450 Other: Weight 102.3 kg Diagnostic Findings EKG performed 09/07/2019 at 2355 hrs. revealed atrial flutter with variable AV conduction and underlying left bundle branch block versus sinus tachycardia with frequent supraventricular ectopy. Telemetry was reviewed from overnight last night and her heart rates improved over time, sinus rhythm with first-degree AV block and left bundle branch block in the mid 70 bpm range appears to be present currently. Medications Administered Current Inpatient Medications Acetaminophen (Tylenol) 650 mg PO Q4H PRN PRN Reason: Pain or Fever Stop: 10/08/19 05:49 Last Admin: 09/08/19 16:05 Dose: 650 mg Documented by: Citalopram Hydrobromide (Celexa) 10 mg PO DAILY [facility] Stop: 10/08/19 08:59 Last Admin: 09/08/19 08:15 Dose: 10 mg Documented by: Dextrose (Dextrose 50%) 25 - 50 ml IV UD PRN; Protocol PRN Reason: Hypoglycemia Protocol Stop: 10/08/19 05:49 Glucagon (Glucagen) 1 mg SQ UD PRN; Protocol PRN Reason: Hypoglycemia Protocol Stop: 10/08/19 05:49 Glucose (Dex4 Glucose) 4 - 8 tabs PO UD PRN; Protocol PRN Reason: Hypoglycemia Protocol Stop: 10/08/19 05:49 Glucose (Glucose 40%) 15 - 30 gm PO UD PRN; Protocol PRN Reason: Hypoglycemia Protocol Stop: 10/08/19 05:49 Promethazine HCl 12.5 mg/ (Sodium Chloride) 50.5 mls @ 202 mls/hr IV Q6H PRN PRN Reason: Nausea And Vomiting Stop: 10/08/19 05:49 Piperacillin Sod/Tazobactam (Sod 4.5 gm/ Dextrose) 120 mls @ 30 mls/hr IV Q8H [facility]AIS; Protocol Stop: 09/15/19 06:59 Last Infusion: 09/08/19 19:57 Dose: Infused Documented by: Insulin Aspart (Novolog Flexpen) 0 units SC ACHS [facility] Stop: 10/08/19 05:49 Last Admin: 09/08/19 18:57 Dose: Not Given Documented by: Insulin Glargine (Lantus Solostar Pen) 20 units SQ DAILY [facility] Stop: 10/09/19 08:59 Ipratropium Farnam (Atrovent 0.02% 0.5mg/2.5ml) 0.5 mg INH Q6R [facility] Stop: 10/08/19 05:49 Last Admin: 09/08/19 19:13 Dose: 0.5 mg Documented by: Levalbuterol HCl (Xopenex 1.25mg/0.5ml Neb) 1.25 mg INH Q6R [facility] Stop: 10/08/19 05:49 Last Admin: 09/08/19 19:13 Dose: 1.25 mg Documented by: Metoprolol Tartrate (Lopressor) 25 mg PO BID [facility] Stop: 10/08/19 07:14 Last Admin: 09/08/19 08:15 Dose: 25 mg Documented by: Miscellaneous (Carbohydrates For Hypoglycemia) 15 - 30 gm PO UD PRN PRN Reason: Hypoglycemia Protocol Stop: 10/08/19 05:49 Miscellaneous Information (Consult) 1 ea N/A UD PRN PRN Reason: Consult Stop: 10/08/19 00:26 Nitroglycerin (Nitrostat) 0.4 mg SL UD PRN PRN Reason: Chest Pain Stop: 10/08/19 05:49 Oxycodone/Acetaminophen (Percocet 5mg/325mg) 1 tab PO Q8H PRN PRN Reason: Pain Stop: 09/22/19 19:03 Last Admin: 09/08/19 20:10 Dose: 1 tab Documented by: Polyethylene Glycol (Miralax Powder Packet) 17 gm PO DAILY PRN PRN Reason: Constipation Stop: 10/09/19 08:59 Prednisone (Prednisone) 40 mg PO DAILY [facility] Stop: 10/08/19 08:59 Last Admin: 09/08/19 13:08 Dose: 40 mg Documented by: Fluticasone/Salmeterol (Advair Diskus 100/50) 1 puffs INH BID [facility] Stop: 10/08/19 20:59 Tramadol HCl (Ultram) 25 mg PO Q4H PRN PRN Reason: Pain Stop: 10/08/19 05:49 Last Admin: 09/08/19 17:33 Dose: 25 mg Documented by:
[2019-09-08] MEDS ORDERED: NON-FORMULARY MEDICATION (Melatonin 6 MG) PO SCH (21:00)
[2019-09-08] MEDS: FLUTICASONE/SALMETEROL 100/50 (ADVAIR) 14 PUFF/1 INHALER INH SCH (21:27)
[2019-09-09] MEDS: IPRATROPIUM BROMIDE NEB SOLN 0.02% 2.5 ML VIAL INH SCH ×4 (01:01→18:58)
[2019-09-09] MEDS: LEVALBUTEROL 1.25MG/0.5ML NEB INH SCH ×4 (01:01→18:58)
[2019-09-09] MEDS ORDERED: VANCOMYCIN HCL 1,500 MG in SODIUM CHLORIDE 0.9% 500 ML IV SCH (06:00)
[2019-09-09 06:30] LABS: Hematocrit (blood only) 33.2 % (37-47); Hemoglobin 10.6 g/dL (12.0-16.0); Mean Corpuscular Hgb Conc 31.9 g/dL (32-36); Mean Corpuscular Volume 97.1 fL (80-100); Mean Platelet Volume 10.3 fL (7.4-10.4); Platelet Count 200 K/uL (130-400); RDW Coefficient of Variation 15.4 % (11.5-14.5); RDW Standard Deviation 54.5 fL (36.4-46.3); Red Blood Count 3.42 M/uL (4.2-5.4); White Blood Count 9.35 K/uL (4.8-10.8)
[2019-09-09 06:54] LABS: BUN Creatinine Ratio 34.3 (10-20); Calcium 8.7 mg/dl (8.5-10.1); Creatinine Clr Calc Pharmacy 28.7 ml/min; Est GFR (African American) 32.2; Est GFR (Non-African American) 27.8; Potassium 4.3 mmol/L (3.5-5.1)
[2019-09-09] MEDS: FLUTICASONE/SALMETEROL 100/50 (ADVAIR) 14 PUFF/1 INHALER INH SCH ×2 (08:29→19:56)
[2019-09-09] MEDS: CITALOPRAM 20 MG TAB PO SCH (08:29)
[2019-09-09] MEDS: METOPROLOL TARTRATE 25 MG TAB PO SCH ×2 (08:30→20:15)
[2019-09-09] MEDS: predniSONE 20 MG TAB PO SCH (08:30)
[2019-09-09] MEDS: INSULIN ASPART 100 UNITS/ML 3 ML PEN SC SCH ×4 (08:34→19:57)
[2019-09-09] MEDS: INSULIN GLARGINE SOLOSTAR 100 UNITS/ML 3 ML PEN SQ SCH (08:36)
[2019-09-09] MEDS: PIPERACILLIN/TAZOBACTAM 4.5 GM in DEXTROSE 5% 100 ML IV SCH (08:46)
[2019-09-09] MEDS ORDERED: FUROSEMIDE 20 MG in SYRINGE 0 ML IV SCH (09:00)
[2019-09-09] MEDS ORDERED: NON-FORMULARY MEDICATION (Fluticasone Furoate-Vilanterol [Breo Ellipta] 1 PUFFS) INH SCH (09:00)
--- NOTE | 2019-09-09 11:48 | Cardiology Progress Note ---
Date of Service September 09, 2019 Assessment & Plan (1) Tachycardia: (2) Chronic diastolic heart failure: (3) LBBB (left bundle branch block): Patient heart rate has improved now sustained at approximately 80 bpm. ECG performed this a.m. with baseline artifact suggesting possible atrial flutter. I will repeat ECG now to confirm rhythm. No anticoagulation at this time due to epistaxis. Increase Lasix to 20 mg IV twice daily to him improve diuresis. Continue metoprolol as previously ordered. Broad-spectrum antibiotics for pneumonia and suspected UTI as per internal medicine. Continue to follow daily weight, fluid balance, GFR. Per review of records, creatinine appears to be n ear baseline of 1.65. Continue to follow patient during hospitalization. Consider alternative antibiotic to Zosyn as soon as possible due to the fluid and sodium load associated with this medication. Addendum: Repeat ECG confirms atrial flutter. Continue current treatment as noted above. Subjective Patient seen and examined at the bedside. Notes cough with minimal sputum production. Denies palpitations. No recurrent epistaxis. Denies palpitations or chest discomfort. Lower extremity edema noted. Outpatient dose of Lasix is 80 mg twice daily. Currently receiving Lasix 20 mg IV daily. Fluid balance is -715 cc overnight. Weight is down 3 kg since admission, however, accuracy of bedside scale is questionable. Review of Systems Review of Systems: All systems reviewed & are unremarkable except as noted in HPI & below Physical Exam Constitutional: + morbidly obese Neck: normal visual inspection Respiratory: normal respiratory effort and + cough Auscultation: + rhonchi Cardiovascular: Rate/Rhythm: regular rate and regular rhythm Heart Sounds: no murmur Extremities: + edema (2+) Gastrointestinal (Abdomen): Inspection/Auscultation: abdomen normal to inspection and normal bowel sounds; abdomen not distended Percussion/Palpation: abdomen nontender and no guarding Neurologic: PERRL, EOMI, accommodation nl, no face palsy, no dysarthria Results & Data Vital Signs (Past 12 Hours) Vital Signs Temp Pulse Pulse Resp BP Pulse Ox Pulse Ox 09/09/19 11:21 36.3 C L 80 20 104/69 92 09/09/19 08:00 79 09/09/19 07:27 78 18 96 09/09/19 06:59 36.5 C 78 24 118/77 96 09/09/19 05:50 96 09/09/19 04:27 36.3 C L 79 20 109/72 99 09/09/19 01:15 78 09/09/19 01:03 77 16 97 09/09/19 00:29 97
[2019-09-09] MEDS: CEFEPIME 2,000 MG in SYRINGE 7.5 ML IV SCH (13:59)
--- NOTE | 2019-09-09 18:21 | Hospitalist Progress Note ---
Date of Service September 09, 2019 Assessment & Plan (1) Respiratory failure: Acute on chronic respiratory failure with hypoxia Multifactorial: Healthcare associated pneumonia, Chronic diastolic CHF, COPD, obstructive sleep apnea Chronic oxygen dependency: 2 L while awake and 3 L at bedtime at baseline --CTA:Cardiomegaly without evidence of pulmonary thromboembolic disease. Trace right and small left pleural effusions with mild left basilar compressive atelectasis. Multilobar patchy nodular consolidative and groundglass opacities suggest multifocal pneumonia. Tracheomalacia with tracheobronchial secretions. Enlarged lymph node of the right epicardial fat pad, 2.0 x 1.1 cm. Healing s ubacute nondisplaced fractures of the anterolateral left third through seventh ribs. --Normal lactate levels --Blood Culture:No growth to date --Negative MRSA Screen --IV vancomycin discontinued --Continue Zosyn transitioned to cefepime, doxycycline --Pulmonary Hygiene --Continue bronchodilators, prednisone --Titrate oxygen to keep oxygen saturation > 90 --Continue current management Urinary tract infection Urine culture: Citrobacter, Proteus--pansensitive Continue Zosyn transition to cefepime Atrial flutter with rapid ventricular response--New Onset in setting of acute infection Currently rate controlled On Coreg at home due to relatively low blood pressure Started on metoprolol 25 mg BID No anticoagulation for now secondary to epistaxis Appreciate cardiology input Epistaxis Had nasal packing while in ED--patient removed voluntarily Aspirin on hold Hemoglobin at baseline Chronic diastolic heart failure Slightly volume overload on exam Home p.o. diuretics held Received IV Lasix Monitor I's and O's, daily weight, electrolytes Continue IV Lasix 20mg twice daily H/O SLE On chronic prednisone 10 mg daily Hypertension Blood pressure is relatively low Coreg, NTG on hold Normal random cortisol Monitor Chronic anemia H/O iron deficiency, anemia of chronic disease Monitor CBC CKD III Baseline Cr: Mid to high 1s Monitor renal function Avoid nephrotoxic agents as able DM II HbA1C: 8.5 Hold Oral meds Continue insulin therapy while hospitalized Hyponatremia Hypochloremia Likely secondary to diuretics Monitor electrolytes DVT Px: SCDs Re: Epistaxis Code Status DNI/DNR Disposition PT/OT prior to discharge Subjective Patient is seen and examined at bedside Subjectively feels shortness of breath, cough slightly better No new complaints Denies any chest pain, nausea, abdominal pain No dizziness today No recurrence of nosebleed Review of Systems Review of Systems: All systems reviewed & are unremarkable except as noted in HPI & below Physical Exam Physical Exam: Physical Exam: Vitals signs as noted above General Appearance: Morbidly obese, no apparent distress Head: normocephalic, Atraumatic Eyes: normal inspection, EOMI Neck: supple, Trachea midline Respiratory/Chest: Decreased coarse breath sounds, bilateral crackles Cardiovascular: Irregularly irregular, No murmur Abdomen/GI:Soft, Non tender, Bowel sounds present Extremities/Musculoskelatal:normal inspection, B/L LE edema Neurologic/Psych:AAOX3, grossly no focal neurological deficits Skin: normal color, warm Results & Data Vital Signs (Past 12 Hours) Vital Signs Temp Pulse Pulse Resp BP Pulse Ox 09/09/19 15:35 36.3 C L 84 18 91/57 L 90 09/09/19 13:29 76 20 85 L 09/09/19 11:21 36.3 C L 80 20 104/69 92 09/09/19 11:00 81 09/09/19 08:00 79 09/09/19 07:27 78 18 96 09/09/19 06:59 36.5 C 78 24 118/77 96 Laboratory Results Short CBC 09/09/19 Range/Units 06:04 WBC 9.35 (4.8-10.8) K/uL Hgb 10.6 L (12.0-16.0) g/dL Hct 33.2 L (37-47) % Plt Count 200 (130-400) K/uL BMP 09/09/19 06:04 Sodium 135 L Potassium 4.3 Chloride 99 Carbon Dioxide 29 BUN 59 H Creatinine 1.73 H Glucose 110 H Calcium 8.7
[2019-09-09] MEDS: DOXYCYCLINE HYCLATE 100 MG CAP PO SCH (19:08)
[2019-09-09] MEDS: FUROSEMIDE 20 MG in SYRINGE 0 ML IV SCH (19:42)
[2019-09-09] MEDS: NYSTATIN OINT 15 GM TUBE EXT SCH (19:56)
[2019-09-09] MEDS: ACETAMINOPHEN 325 MG TAB PO PRN (23:23)
[2019-09-10] MEDS: LEVALBUTEROL 1.25MG/0.5ML NEB INH SCH ×4 (00:55→19:19)
[2019-09-10] MEDS: IPRATROPIUM BROMIDE NEB SOLN 0.02% 2.5 ML VIAL INH SCH ×4 (00:55→19:19)
[2019-09-10 06:36] LABS: Hematocrit (blood only) 34.6 % (37-47); Hemoglobin 10.7 g/dL (12.0-16.0); Mean Corpuscular Hemoglobin 30.7 pg (25-34); Mean Corpuscular Hgb Conc 30.9 g/dL (32-36); Mean Corpuscular Volume 99.4 fL (80-100); Mean Platelet Volume 9.9 fL (7.4-10.4); Platelet Count 215 K/uL (130-400); RDW Coefficient of Variation 15.4 % (11.5-14.5); RDW Standard Deviation 55.4 fL (36.4-46.3); Red Blood Count 3.48 M/uL (4.2-5.4); White Blood Count 10.02 K/uL (4.8-10.8)
[2019-09-10 07:08] LABS: Calcium 9.1 mg/dl (8.5-10.1); Creatinine Clr Calc Pharmacy 27.7 ml/min; Est GFR (African American) 31.1; Est GFR (Non-African American) 26.9; Potassium 4.2 mmol/L (3.5-5.1)
[2019-09-10] MEDS: INSULIN ASPART 100 UNITS/ML 3 ML PEN SC SCH ×4 (07:48→19:58)
[2019-09-10] MEDS: INSULIN GLARGINE SOLOSTAR 100 UNITS/ML 3 ML PEN SQ SCH (07:51)
[2019-09-10] MEDS: FLUTICASONE/SALMETEROL 100/50 (ADVAIR) 14 PUFF/1 INHALER INH SCH ×2 (07:51→19:54)
[2019-09-10] MEDS: METOPROLOL TARTRATE 25 MG TAB PO SCH ×3 (08:18→20:22)
[2019-09-10] MEDS: predniSONE 20 MG TAB PO SCH (08:18)
[2019-09-10] MEDS: NYSTATIN OINT 15 GM TUBE EXT SCH ×2 (08:18→19:53)
[2019-09-10] MEDS: FUROSEMIDE 20 MG in SYRINGE 0 ML IV SCH ×2 (08:18→16:51)
[2019-09-10] MEDS: CITALOPRAM 20 MG TAB PO SCH (08:19)
[2019-09-10] MEDS: DOXYCYCLINE HYCLATE 100 MG CAP PO SCH ×2 (08:19→19:54)
--- NOTE | 2019-09-10 11:23 | Cardiology Progress Note ---
Date of Service September 10, 2019 Assessment & Plan (1) Tachycardia: (2) Chronic diastolic heart failure: (3) LBBB (left bundle branch block): Increased dose of IV Lasix to 40 mg twice daily to improve diuresis. Continue metoprolol tartrate. Anticoagulation currently contraindicated in the setting of acute epistaxis. Follow daily weight, fluid balance, GFR. Repeat ECG in a.m. Subjective Patient seen and examined the bedside. Fluid balance -891 cc. Creatinine stable. No recurrent epistaxis. Telemetry demonstrates atrial flutter with controlled ventricular response. Patient feeling better from a cardiovascular perspective. Dyspnea on exertion improved. Offers no other concerns/complaints this time. Review of Systems Review of Systems: All systems reviewed & are unremarkable except as noted in HPI & below Physical Exam Constitutional: + morbidly obese Neck: normal visual inspection Respiratory: normal respiratory effort and + cough Auscultation: + rhonchi Cardiovascular: Rate/Rhythm: regular rate and regular rhythm Heart Sounds: no murmur Extremities: + edema (2+) Gastrointestinal (Abdomen): Inspection/Auscultation: abdomen normal to inspection and normal bowel sounds; abdomen not distended Percussion/Palpation: abdomen nontender and no guarding Neurologic: PERRL, EOMI, accommodation nl, no face palsy, no dysarthria Results & Data Vital Signs (Past 12 Hours) Vital Signs Temp Pulse Resp BP BP Pulse Ox 09/10/19 07:56 36.3 C L 80 20 115/63 98 09/10/19 07:14 74 18 97 09/10/19 03:59 36.8 C 81 16 106/65 95 09/10/19 00:55 82 16 98 09/09/19 23:51 36.3 C L 82 20 108/69 100
--- NOTE | 2019-09-10 13:39 | Hospitalist Progress Note ---
Date of Service September 10, 2019 Assessment & Plan (1) Respiratory failure: Acute on chronic respiratory failure with hypoxia Multifactorial: Healthcare associated pneumonia, Chronic diastolic CHF, COPD, obstructive sleep apnea Chronic oxygen dependency: 2 L while awake and 3 L at bedtime at baseline --CTA:Cardiomegaly without evidence of pulmonary thromboembolic disease. Trace right and small left pleural effusions with mild left basilar compressive atelectasis. Multilobar patchy nodular consolidative and groundglass opacities suggest multifocal pneumonia. Tracheomalacia with tracheobronchial secretions. Enlarged lymph node of the right epicardial fat pad, 2.0 x 1.1 cm. Healing s ubacute nondisplaced fractures of the anterolateral left third through seventh ribs. --Normal lactate levels --Blood Culture:No growth to date --Negative MRSA Screen --IV vancomycin discontinued --Continue Zosyn transitioned to cefepime, doxycycline --Continue Pulmonary Hygiene --Continue bronchodilators, prednisone --Titrate oxygen to keep oxygen saturation > 90 --Slowly improving Urinary tract infection Urine culture: Citrobacter, Proteus--pansensitive Continue Zosyn transition to cefepime Day #2 Atrial flutter with rapid ventricular response--New Onset in setting of acute infection Currently rate controlled On Coreg at home due to relatively low blood pressure Started on metoprolol 25 mg BID Consider starting on anticoagulation as able Appreciate cardiology input Epistaxis Had nasal packing while in ED--patient removed voluntarily Aspirin on hold Monitor CBC No recurrence Chronic diastolic heart failure Slightly volume overload on exam Home p.o. diuretics held Received IV Lasix Monitor I's and O's, daily weight, electrolytes Continue IV Lasix 20mg twice daily H/O SLE On chronic prednisone 10 mg daily Hypertension Blood pressure is relatively low Coreg, NTG on hold Normal random cortisol Monitor Chronic anemia H/O iron deficiency, anemia of chronic disease Monitor CBC CKD III Baseline Cr: Mid to high 1s Monitor renal function Avoid nephrotoxic agents as able Cr slightly high due to diuretics DM II HbA1C: 8.5 Hold Oral meds Continue insulin therapy while hospitalized Hyponatremia Hypochloremia Likely secondary to diuretics Monitor electrolytes DVT Px: SCDs Re: Epistaxis Code Status DNI/DNR Disposition PT/OT::Currently pt refusing To be determined Subjective Patient is seen and examined at bedside No new complaints Less cough and SOB No epistaxis today Denies any chest pain, nausea, abdominal pain Review of Systems Review of Systems: All systems reviewed & are unremarkable except as noted in HPI & below Physical Exam Physical Exam: Physical Exam: Vitals signs as noted above General Appearance: Morbidly obese, no apparent distress Head: normocephalic, Atraumatic Eyes: normal inspection, EOMI Neck: supple, Trachea midline Respiratory/Chest: Decreased coarse breath sounds, bilateral Rhonchi Cardiovascular: Irregularly irregular, No murmur Abdomen/GI:Soft, Non tender, Bowel sounds present Extremities/Musculoskelatal:normal inspection, B/L LE edema Neurologic/Psych:AAOX3, grossly no focal neurological deficits Skin: normal color, warm Results & Data Vital Signs (Past 12 Hours) Vital Signs Temp Pulse Pulse Resp BP BP Pulse Ox 09/10/19 13:17 88 17 95 09/10/19 12:03 09/10/19 11:46 36.4 C L 88 18 107/70 97 09/10/19 07:56 36.3 C L 80 20 115/63 98 09/10/19 07:14 74 18 97 09/10/19 03:59 36.8 C 81 16 106/65 95 Pulse Ox 09/10/19 13:17 09/10/19 12:03 85 L 09/10/19 11:46 09/10/19 07:56 09/10/19 07:14 09/10/19 03:59 Laboratory Results Short CBC 09/10/19 Range/Units 06:11 WBC 10.02 (4.8-10.8) K/uL Hgb 10.7 L (12.0-16.0) g/dL Hct 34.6 L (37-47) % Plt Count 215 (130-400) K/uL BMP 09/10/19 06:11 Sodium 137 Potassium 4.2 Chloride 99 Carbon Dioxide 33 H BUN 52 H Creatinine 1.78 H Glucose 104 H Calcium 9.1
[2019-09-10] MEDS: CEFEPIME 2,000 MG in SYRINGE 7.5 ML IV SCH (15:08)
[2019-09-11] MEDS: LEVALBUTEROL 1.25MG/0.5ML NEB INH SCH ×4 (01:21→19:17)
[2019-09-11] MEDS: IPRATROPIUM BROMIDE NEB SOLN 0.02% 2.5 ML VIAL INH SCH ×4 (01:21→19:17)
[2019-09-11] MEDS ORDERED: VANCOMYCIN TROUGH ONE (05:30)
[2019-09-11 07:47] LABS: Calcium 8.5 mg/dl (8.5-10.1); Creatinine Clr Calc Pharmacy 33.3 ml/min; Est GFR (African American) 38.6; Est GFR (Non-African American) 33.3; Magnesium 2.5 mg/dl (1.8-2.4)
[2019-09-11] MEDS: INSULIN ASPART 100 UNITS/ML 3 ML PEN SC SCH ×4 (08:50→21:13)
[2019-09-11] MEDS: CITALOPRAM 20 MG TAB PO SCH (08:51)
[2019-09-11] MEDS: FLUTICASONE/SALMETEROL 100/50 (ADVAIR) 14 PUFF/1 INHALER INH SCH ×2 (08:51→20:08)
[2019-09-11] MEDS: INSULIN GLARGINE SOLOSTAR 100 UNITS/ML 3 ML PEN SQ SCH (08:52)
[2019-09-11] MEDS: FUROSEMIDE 20 MG in SYRINGE 0 ML IV SCH (09:00)
[2019-09-11] MEDS: predniSONE 20 MG TAB PO SCH (09:00)
[2019-09-11] MEDS: METOPROLOL TARTRATE 25 MG TAB PO SCH ×2 (09:00→20:08)
[2019-09-11] MEDS: NYSTATIN OINT 15 GM TUBE EXT SCH ×2 (09:00→20:08)
--- NOTE | 2019-09-11 10:47 | XCELERA ---
[id number] [id number]
[2019-09-11] MEDS: CEFEPIME 2,000 MG in SYRINGE 7.5 ML IV SCH ×2 (11:00→21:13)
[2019-09-11] MEDS: DOXYCYCLINE HYCLATE 100 MG CAP PO SCH ×2 (11:00→20:08)
[2019-09-11] MEDS: FUROSEMIDE 40 MG in SYRINGE 0 ML IV SCH (17:52)
--- NOTE | 2019-09-11 17:58 | Hospitalist Progress Note ---
Date of Service September 11, 2019 Assessment & Plan (1) Respiratory failure: Acute on chronic respiratory failure with hypoxia Multifactorial: Healthcare associated pneumonia, Chronic diastolic CHF, COPD, obstructive sleep apnea Chronic oxygen dependency: 2 L while awake and 3 L at bedtime at baseline --CTA:Cardiomegaly without evidence of pulmonary thromboembolic disease. Trace right and small left pleural effusions with mild left basilar compressive atelectasis. Multilobar patchy nodular consolidative and groundglass opacities suggest multifocal pneumonia. Tracheomalacia with tracheobronchial secretions. Enlarged lymph node of the right epicardial fat pad, 2.0 x 1.1 cm. Healing s ubacute nondisplaced fractures of the anterolateral left third through seventh ribs. --Normal lactate levels --Blood Culture:No growth to date --Sputum Cx: Corynebacterium --Negative MRSA Screen --IV vancomycin discontinued --Continue Zosyn transitioned to cefepime, doxycycline --Continue Pulmonary Hygiene --Continue bronchodilators, prednisone --Saturating well with baseline supplemental oxygen --Taper prednisone Urinary tract infection Urine culture: Citrobacter, Proteus--pansensitive Continue Zosyn transition to cefepime Day #3 Atrial flutter with rapid ventricular response--New Onset in setting of acute infection Currently rate controlled On Coreg at home--Held due to relatively low blood pressure initially Started on metoprolol 25 mg BID Appreciate cardiology input No anticoagulation secondary to epistaxis Started on heparin sq--Trial Epistaxis--Resolved Had nasal packing while in ED--patient removed voluntarily Aspirin on hold Monitor CBC No recurrence Chronic diastolic heart failure P.o. diuretics held Monitor I's and O's, daily weight, electrolytes Continue IV diuretics as per cardiology H/O SLE On chronic prednisone 10 mg daily Hypertension Blood pressure is relatively low Coreg, NTG on hold Normal random cortisol Blood pressure slowly improving Monitor Chronic anemia H/O iron deficiency, anemia of chronic disease Monitor CBC CKD III Baseline Cr: Mid to high 1s Monitor renal function Avoid nephrotoxic agents as able Creatinine at baseline DM II HbA1C: 8.5 Hold Oral meds Continue insulin therapy while hospitalized Hyponatremia Hypochloremia Likely secondary to diuretics Monitor electrolytes DVT Px: Trial of Heparin SQ Code Status DNI/DNR Disposition PT/OT prior to discharge To be determined Subjective Patient is seen and examined at bedside Subjectively feels much better this morning Cough much improved Denies any chest pain, shortness of breath, nausea, abdominal pain Review of Systems Review of Systems: All systems reviewed & are unremarkable except as noted in HPI & below Physical Exam Physical Exam: Physical Exam: Vitals signs as noted above General Appearance: Morbidly obese, no apparent distress Head: normocephalic, Atraumatic Eyes: normal inspection, EOMI Neck: supple, Trachea midline Respiratory/Chest: Decreased breath sounds, basal crackles Cardiovascular: Irregularly irregular, No murmur Abdomen/GI:Soft, Non tender, Bowel sounds present Extremities/Musculoskelatal:normal inspection, B/L LE edema Neurologic/Psych:AAOX3, grossly no focal neurological deficits Skin: normal color, warm Results & Data Vital Signs (Past 12 Hours) Vital Signs Temp Pulse Resp BP BP Pulse Ox 09/11/19 15:18 36.7 C 86 23 127/76 96 09/11/19 13:22 87 18 90 09/11/19 11:39 97 09/11/19 11:09 37.0 C 86 19 127/77 95 09/11/19 07:13 87 18 91 09/11/19 07:03 36.6 C 83 19 112/75 96 Laboratory Results [facility] 09/11/19 06:43 Sodium 139 Potassium 4.0 Chloride 101 Carbon Dioxide 34 H BUN 46 H Creatinine 1.49 H Glucose 90 Calcium 8.5
--- NOTE | 2019-09-11 19:17 | Emergency Department Note ---
History of Present Illness General Chief complaint: Nose Bleed (Minor) Stated complaint: Nose bleed Time Seen by Provider: 09/08/19 00:02 Source: patient, EMS, RN notes reviewed and old records reviewed Mode of arrival: EMS Limitations: patient cooperation History of Present Illness Provider complaint: Nosebleed, Racing heart Onset (ago): hour(s) 8 Location: head Radiation: non-radiation Severity: moderate Pain Consistency: + intermittent Maximum Pain Intensity: 6 Current Pain Intensity: 6 Quality: + burning Relieved By: + none Exacerbated By: + none Associated symptoms: + denies other symptoms Treatments prior to arrival: none This is a 78-year-old female who was sent in by her skilled nursing over concerns that the patient had multiple nosebleeds today. The patient began bleeding again this evening and therefore was sent in for evaluation. Patient went in via BLS however upon arrival to the emergency department the patient's heart is racing and in the 180s. She is also having chest pressure along with the racing heart. She denies anything like this happening to her ever before. She denies any fevers or abdominal pain. Home Medications Home Medications Medication Instructions Recorded Confirmed Type acetaminophen 650 mg PO Q6H PRN MDD 3gm/24hr 09/08/19 09/08/19 History ascorbic acid (vitamin C) 1 g PO Q2D 09/08/19 09/08/19 History aspirin [Aspirin Childrens] 81 mg PO DAILY 09/08/19 09/08/19 History carvedilol 3.125 mg PO BID 09/08/19 09/08/19 History cholecalciferol (vitamin D3) 2,000 unit PO DAILY 09/08/19 09/08/19 History [Vitamin D3] citalopram 10 mg PO DAILY 09/08/19 09/08/19 History clotrimazole-betamethasone 1 applic TOPICAL QPM 09/08/19 09/08/19 History [Lotrisone] ferrous gluconate 324 mg PO BID 09/08/19 09/08/19 History fluticasone furoate-vilanterol 1 inh INHALATION DAILY 09/08/19 09/08/19 History [Breo Ellipta] furosemide [Lasix] 80 mg PO BID 09/08/19 09/08/19 History glipizide 5 mg PO BID 09/08/19 09/08/19 History ipratropium-albuterol 3 ml INHALATION Q6 PRN 09/08/19 09/08/19 History ipratropium-albuterol [Combivent 1 puff INHALATION Q6 PRN 09/08/19 09/08/19 History Respimat] linagliptin [Tradjenta] 5 mg PO DAILY 09/08/19 09/08/19 History melatonin 6 mg PO HS 09/08/19 09/08/19 History menthol-zinc oxide [Calmoseptine] 1 applic TOPICAL QS 09/08/19 09/08/19 History metolazone 2.5 mg PO Q7D 09/08/19 09/08/19 History nitroglycerin 1 patch TRANSDERMAL DAILY 09/08/19 09/08/19 History polyethylene glycol 3350 [Miralax] 17 g PO DAILY 09/08/19 09/08/19 History potassium chloride 20 meq PO Q7D 09/08/19 09/08/19 History prednisone 10 mg PO DAILY 09/08/19 09/08/19 History spironolactone 50 mg PO DAILY 09/08/19 09/08/19 History umeclidinium [Incruse Ellipta] 1 inh INHALATION DAILY 09/08/19 09/08/19 History Allergies Allergy/AdvReac Type Severity Reaction Status Date / Time No Known Allergies Allergy Unknown Verified 09/08/19 00:35 Past Med/Surg History Social History Preferred Language: Venezuelan Communication Ability: Effective Beliefs That Will Affect Care: None marital status: / Current Living Situation: Personal Care Facility Other Information That Helps Us Care for You: No Feels Safe at Home: Yes Safety Concerns: Feels Safe At This Time Smoking Status: Never smoker Hx Alcohol Use: No Hx Substance Use: No Review of Systems A total of 10 systems reviewed and were otherwise negative Physical Exam GENERAL: Patient is a healthy-appearing well-nourished female is moderate distress HEAD: Normocephalic atraumatic EYES: Ocular movements intact pupils equal and react to light OROPHARYNX mucous membranes are moist, blood present in back of throat NOSE: bleeding present left nostril NECK: Supple no nuchal rigidity CHEST: Good equal expansion LUNGS: Clear and equal to auscultation CARDIAC: Normal S1 and S2 ABDOMEN: Soft nontender no guarding BACK: No CVA tenderness EXTREMITIES: No pain upon palpation normal muscle strength in all groups no clubbing cyanosis or edema NEURO: Patient is following commands is answering questions appropriately. Alert and oriented x3 Cranial Nerves 2-12 grossly intact Procedures Epistaxis Control Time Out Performed: Yes (I myself verified and performed this procedure on this patient) Nostril: left Nose Prepped With: lidocaine and oxymetazoline Direct Inspection: yes Clots Removed by: suction Cautery Used: none Device Inserted: nasal tampon Device Size: 4 Patient Tolerated Procedure: well Complications: other (Pt removed nasal tampon self) Course Administered Medications Acetaminophen (Tylenol) 650 mg PO Q4H PRN PRN Reason: Pain or Fever Stop: 10/08/19 05:49 Last Admin: 09/09/19 23:23 Dose: 650 mg Documented by: [id number] Admin: 09/08/19 16:05 Dose: 650 mg Documented by: [id number] Citalopram Hydrobromide (Celexa) 10 mg PO DAILY [facility] Stop: 10/08/19 08:59 Last Admin: 09/11/19 08:51 Dose: 10 mg Documented by: [id number] Admin: 09/10/19 08:19 Dose: 10 mg Documented by: [id number] Admin: 09/09/19 08:29 Dose: 10 mg Documented by: [id number] Admin: 09/08/19 08:15 Dose: 10 mg Documented by: [id number] Doxycycline Hyclate (Vibramycin) 100 mg PO BID [facility]; Protocol Stop: 09/16/19 17:59 Last Admin: 09/11/19 11:00 Dose: 100 mg Documented by: [id number] Admin: 09/10/19 19:54 Dose: 100 mg Documented by: [id number] Admin: 09/10/19 08:19 Dose: 100 mg Documented by: [id number] Admin: 09/09/19 19:08 Dose: 100 mg Documented by: [id number] Cefepime HCl 2,000 mg/ Syringe 20 mls @ 5 mls/min IV Q12H [facility]; Protocol Stop: 09/15/19 09:59 Last Admin: 09/11/19 11:00 Dose: 5 mls/min Documented by: [id number] Furosemide 40 mg/ Syringe 4 mls @ 4 mls/min IV BID17 [facility] Stop: 10/11/19 16:59 Last Admin: 09/11/19 17:52 Dose: 4 mls/min Documented by: [id number] Insulin Aspart (Novolog Flexpen) 0 units SC ACHS [facility] Stop: 10/08/19 05:49 Last Admin: 09/11/19 17:51 Dose: 8 units Documented by: [id number] Cosigned by: [id number] Admin: 09/11/19 12:19 Dose: 2 units Documented by: [id number] Cosigned by: [id number] Admin: 09/11/19 08:50 Dose: 1 units Documented by: [id number] Cosigned by: [id number] Admin: 09/10/19 19:58 Dose: 8 units Documented by: [id number] Cosigned by: [id number] Admin: 09/10/19 16:50 Dose: 6 units Documented by: [id number] Cosigned by: [id number] Admin: 09/10/19 12:01 Dose: 2 units Documented by: [id number] Cosigned by: [id number] Admin: 09/10/19 07:48 Dose: 2 units Documented by: [id number] Cosigned by: [id number] Admin: 09/09/19 19:57 Dose: 2 units Documented by: [id number] Cosigned by: [id number] Admin: 09/09/19 17:03 Dose: 1 units Documented by: [id number] Cosigned by: [id number] Admin: 09/09/19 12:37 Dose: 1 units Documented by: [id number] Cosigned by: [id number] Admin: 09/09/19 08:34 Dose: 1 units Documented by: [id number] Cosigned by: [id number] Admin: 09/08/19 22:27 Dose: Not Given Documented by: [id number] Cosigned by: [id number] Admin: 09/08/19 18:57 Dose: Not Given Documented by: [id number] Cosigned by: [id number] Admin: 09/08/19 13:08 Dose: 1 units Documented by: [id number] Cosigned by: [id number] Admin: 09/08/19 06:32 Dose: 2 units Documented by: [id number] Cosigned by: [id number] Insulin Glargine (Lantus Solostar Pen) 20 units SQ DAILY [facility] Stop: 10/09/19 08:59 Last Admin: 09/11/19 08:52 Dose: 20 units Documented by: [id number] Cosigned by: [id number] Admin: 09/10/19 07:51 Dose: 20 units Documented by: [id number] Cosigned by: [id number] Admin: 09/09/19 08:36 Dose: 20 units Documented by: [id number] Cosigned by: [id number] Ipratropium [place] (Atrovent 0.02% 0.5mg/2.5ml) 0.5 mg INH Q6R [facility] Stop: 10/08/19 05:49 Last Admin: 09/11/19 13:20 Dose: 0.5 mg Documented by: [id number] Admin: 09/11/19 07:10 Dose: 0.5 mg Documented by: [id number] Admin: 09/11/19 01:21 Dose: 0.5 mg Documented by: [id number] Admin: 09/10/19 19:19 Dose: 0.5 mg Documented by: [id number] Admin: 09/10/19 13:15 Dose: 0.5 mg Documented by: [id number] Admin: 09/10/19 07:12 Dose: 0.5 mg Documented by: [id number] Admin: 09/10/19 00:55 Dose: 0.5 mg Documented by: [id number] Admin: 09/09/19 18:58 Dose: 0.5 mg Documented by: [id number] Admin: 09/09/19 13:24 Dose: 0.5 mg Documented by: [id number] Admin: 09/09/19 07:27 Dose: 0.5 mg Documented by: [id number] Admin: 09/09/19 01:01 Dose: 0.5 mg Documented by: [id number] Admin: 09/08/19 19:13 Dose: 0.5 mg Documented by: [id number] Admin: 09/08/19 14:04 Dose: 0.5 mg Documented by: [id number] Admin: 09/08/19 07:11 Dose: 0.5 mg Documented by: [id number] Levalbuterol HCl (Xopenex 1.25mg/0.5ml Neb) 1.25 mg INH Q6R [facility] Stop: 10/08/19 05:49 Last Admin: 09/11/19 13:20 Dose: 1.25 mg Documented by: [id number] Admin: 09/11/19 07:10 Dose: 1.25 mg Documented by: [id number] Admin: 09/11/19 01:21 Dose: 1.25 mg Documented by: [id number] Admin: 09/10/19 19:19 Dose: 1.25 mg Documented by: [id number] Admin: 09/10/19 13:16 Dose: 1.25 mg Documented by: [id number] Admin: 09/10/19 07:12 Dose: 1.25 mg Documented by: [id number] Admin: 09/10/19 00:55 Dose: 1.25 mg Documented by: [id number] Admin: 09/09/19 18:58 Dose: 1.25 mg Documented by: [id number] Admin: 09/09/19 13:24 Dose: 1.25 mg Documented by: [id number] Admin: 09/09/19 07:27 Dose: 1.25 mg Documented by: [id number] Admin: 09/09/19 01:01 Dose: 1.25 mg Documented by: [id number] Admin: 09/08/19 19:13 Dose: 1.25 mg Documented by: [id number] Admin: 09/08/19 14:04 Dose: 1.25 mg Documented by: [id number] Admin: 09/08/19 07:11 Dose: 1.25 mg Documented by: [id number] Metoprolol Tartrate (Lopressor) 25 mg PO BID [facility] Stop: 10/08/19 07:14 Last Admin: 09/11/19 09:00 Dose: 25 mg Documented by: [id number] Admin: 09/10/19 20:22 Dose: 25 mg Documented by: [id number] Admin: 09/10/19 08:18 Dose: 25 mg Documented by: [id number] Admin: 09/09/19 20:15 Dose: 25 mg Documented by: [id number] Admin: 09/09/19 08:30 Dose: 25 mg Documented by: [id number] Admin: 09/08/19 21:26 Dose: 25 mg Documented by: [id number] Admin: 09/08/19 08:15 Dose: 25 mg Documented by: [id number] Nystatin (Mycostatin) 1 appln EXT BID [facility] Stop: 10/09/19 20:59 Last Admin: 09/11/19 09:00 Dose: 1 appln Documented by: [id number] Admin: 09/10/19 19:53 Dose: 1 appln Documented by: [id number] Admin: 09/10/19 08:18 Dose: 1 appln Documented by: [id number] Admin: 09/09/19 19:56 Dose: 1 appln Documented by: [id number] Oxycodone/Acetaminophen (Percocet 5mg/325mg) 1 tab PO Q8H PRN PRN Reason: Pain Stop: 09/22/19 19:03 Last Admin: 09/08/19 20:10 Dose: 1 tab Documented by: [id number] Fluticasone/Salmeterol (Advair Diskus 100/50) 1 puffs INH BID [facility] Stop: 10/08/19 20:59 Last Admin: 09/11/19 08:51 Dose: 1 puffs Documented by: [id number] Admin: 09/10/19 19:54 Dose: 1 puffs Documented by: [id number] Admin: 09/10/19 07:51 Dose: 1 puffs Documented by: [id number] Admin: 09/09/19 19:56 Dose: 1 puffs Documented by: [id number] Admin: 09/09/19 08:29 Dose: 1 puffs Documented by: [id number] Admin: 09/08/19 21:27 Dose: 1 puffs Documented by: [id number] Tramadol HCl (Ultram) 25 mg PO Q4H PRN PRN Reason: Pain Stop: 10/08/19 05:49 Last Admin: 09/08/19 17:33 Dose: 25 mg Documented by: [id number] Discontinued Medications Dexamethasone (Decadron) 4 mg IV NOW STA Stop: 09/08/19 04:29 Last Admin: 09/08/19 04:52 Dose: 4 mg Documented by: [id number] Digoxin (Lanoxin) Confirm Administered Dose 250 mcg IV .STK-MED ONE Stop: 09/08/19 04:21 Last Admin: 09/08/19 04:22 Dose: 250 mcg Documented by: [id number] Furosemide (Lasix) 80 mg IV NOW STA Stop: 09/08/19 00:06 Last Admin: 09/08/19 00:15 Dose: 80 mg Documented by: [id number] Hydrocortisone Sodium Succinate (Solu-Cortef) 100 mg IV NOW STA Stop: 09/08/19 00:03 Last Admin: 09/08/19 00:14 Dose: 100 mg Documented by: [id number] Hydrocortisone Sodium Succinate (Solu-Cortef) Confirm Administered Dose 100 mg .ROUTE .STK-MED ONE Stop: 09/08/19 00:04 Last Admin: 09/08/19 00:14 Dose: Not Given Documented by: [id number] Magnesium Sulfate/Dextrose (Magnesium Sulfate / D5w) 1 gm in 100 mls @ 100 mls/hr IV ONE ONE Stop: 09/08/19 01:08 Last Infusion: 09/08/19 02:31 Dose: 0 mls/hr Documented by: [id number] Admin: 09/08/19 00:15 Dose: 100 mls/hr Documented by: [id number] Piperacillin Sod/Tazobactam Sod (Zosyn) 4.5 gm in 120 mls @ 240 mls/hr IV NOW ONE Stop: 09/08/19 00:56 Last Infusion: 09/08/19 02:31 Dose: 0 mls/hr Documented by: [id number] Admin: 09/08/19 01:25 Dose: 240 mls/hr Documented by: [id number] Levofloxacin/Dextrose (Levaquin/D5w) 750 mg in 150 mls @ 100 mls/hr IV NOW STA Stop: 09/08/19 01:56 Last Infusion: 09/08/19 03:45 Dose: 0 mls/hr Documented by: [id number] Admin: 09/08/19 01:25 Dose: 100 mls/hr Documented by: [id number] Digoxin 250 mcg/ Syringe 10 mls @ 2 mls/min IV NOW STA Stop: 09/08/19 04:24 Last Admin: 09/08/19 04:23 Dose: Not Given Documented by: [id number] Albumin Human (Albumin 25%) 50 mls @ 50 mls/hr IV ONE ONE Stop: 09/08/19 05:19 Last Infusion: 09/08/19 05:52 Dose: 0 mls/hr Documented by: [id number] Admin: 09/08/19 04:52 Dose: 50 mls/hr Documented by: [id number] Digoxin 250 mcg/ Syringe 10 mls @ 2 mls/min IV NOW STA Stop: 09/08/19 05:54 Last Admin: 09/08/19 06:31 Dose: 2 mls/min Documented by: [id number] Vancomycin HCl 2,500 mg/ (Sodium Chloride) 550 mls @ 200 mls/hr IV TODAY@0630 [facility] Stop: 09/08/19 09:14 Last Infusion: 09/08/19 09:36 Dose: 0 mls/hr Documented by: [id number] Admin: 09/08/19 06:51 Dose: 200 mls/hr Documented by: [id number] Piperacillin Sod/Tazobactam (Sod 4.5 gm/ Dextrose) 120 mls @ 30 mls/hr IV Q8H [facility]; Protocol Stop: 09/15/19 06:59 Last Infusion: 09/09/19 12:40 Dose: 0 mls/hr Documented by: [id number] Admin: 09/09/19 08:46 Dose: 30 mls/hr Documented by: [id number] Infusion: 09/09/19 02:57 Dose: 0 mls/hr Documented by: [id number] Admin: 09/08/19 22:48 Dose: 30 mls/hr Documented by: [id number] Infusion: 09/08/19 19:57 Dose: 0 mls/hr Documented by: [id number] Admin: 09/08/19 15:57 Dose: 30 mls/hr Documented by: [id number] Infusion: 09/08/19 12:21 Dose: 0 mls/hr Documented by: [id number] Admin: 09/08/19 08:13 Dose: 30 mls/hr Documented by: [id number] Furosemide 20 mg/ Syringe 2 mls @ 4 mls/min IV DAILY [facility] Stop: 10/09/19 08:59 Last Admin: 09/09/19 08:30 Dose: 4 mls/min Documented by: [id number] Cefepime HCl 2,000 mg/ Syringe 20 mls @ 5 mls/min IV Q24H [facility]; Protocol Stop: 09/15/19 06:59 Last Admin: 09/10/19 15:08 Dose: 5 mls/min Documented by: [id number] Admin: 09/09/19 13:59 Dose: 5 mls/min Documented by: [id number] Furosemide 20 mg/ Syringe 2 mls @ 4 mls/min IV BID17 [facility] Stop: 10/09/19 18:59 Last Admin: 09/11/19 09:00 Dose: 4 mls/min Documented by: [id number] Admin: 09/10/19 16:51 Dose: 4 mls/min Documented by: [id number] Admin: 09/10/19 08:18 Dose: 4 mls/min Documented by: [id number] Admin: 09/09/19 19:42 Dose: 4 mls/min Documented by: [id number] Insulin Glargine (Lantus Solostar Pen) 20 units SC NOW STA Stop: 09/08/19 05:51 Last Admin: 09/08/19 06:33 Dose: 20 units Documented by: [id number] Cosigned by: [id number] Ioversol (Optiray 320 125ml) 125 ml IV ONCE PRN PRN Reason: Interaction Checking Stop: 09/12/19 01:14 Last Admin: 09/08/19 01:16 Dose: 86 ml Documented by: [id number] Ipratropium [place] (Atrovent 0.02% 0.5mg/2.5ml) 0.5 mg INH NOW STA Stop: 09/08/19 02:00 Last Admin: 09/08/19 02:25 Dose: 0.5 mg Documented by: [id number] Levalbuterol HCl (Xopenex 1.25mg/0.5ml Neb) 1.25 mg INH NOW STA Stop: 09/08/19 02:00 Last Admin: 09/08/19 02:24 Dose: 1.25 mg Documented by: [id number] Lidocaine HCl (Afrin W/Lidocaine 4%) 4 ml NA NOW STA Stop: 09/08/19 00:09 Last Admin: 09/08/19 00:15 Dose: 4 ml Documented by: [id number] Metoprolol Tartrate (Lopressor) Confirm Administered Dose 10 mg IV .STK-MED ONE Stop: 09/08/19 00:06 Last Admin: 09/08/19 00:14 Dose: 10 mg Documented by: [id number] Nitroglycerin (Nitro-Bid 2%) 1 inch EXT NOW STA Stop: 09/08/19 00:12 Last Admin: 09/08/19 01:25 Dose: 1 inch Documented by: [id number] Ondansetron HCl (Zofran) Confirm Administered Dose 4 mg .ROUTE .STK-MED ONE Stop: 09/08/19 01:45 Last Admin: 09/08/19 01:46 Dose: 4 mg Documented by: [id number] Ondansetron HCl (Zofran) 4 mg IV NOW STA Stop: 09/08/19 01:45 Last Admin: 09/08/19 01:46 Dose: Not Given Documented by: [id number] Prednisone (Prednisone) 40 mg PO DAILY [facility] Stop: 10/08/19 08:59 Last Admin: 09/11/19 09:00 Dose: 40 mg Documented by: [id number] Admin: 09/10/19 08:18 Dose: 40 mg Documented by: [id number] Admin: 09/09/19 08:30 Dose: 40 mg Documented by: [id number] Admin: 09/08/19 13:08 Dose: 40 mg Documented by: [id number] Critical Care Time I have personally spent greater than 90 minutes of critical care time in the direct management of this patient. This includes bedside care, interpretation of diagnostic studies, and testing, discussion with consultants, patient, and family members, and other required patient management activities. This 90 minutes is in excess of all separately billable procedures. Medical Decision Making Differential Diagnosis My differential diagnosis includes but is not limited to congestive heart failure exacerbation, A. fib with RVR, myocardial infarction, COPD, epistaxis, posterior epistaxis Medical Records Attestation: I reviewed the patient's medical records. Home Medications Current Medication List: was personally reviewed by me Laboratory Data Attestation: I reviewed the patient's lab results. Result diagrams: 09/10/19 06:11 09/11/19 06:43 Lab Results 09/08/19 09/08/19 09/08/19 Range/Units 00:04 00:04 00:04 WBC 17.29 H (4.8-10.8) K/uL RBC 4.22 (4.2-5.4) M/uL Hgb 13.3 (12.0-16.0) g/dL POC Hgb (12.0-16.0) g/dl Hct 40.9 (37-47) % POC Hct (37-47) % MCV 96.9 (80-100) fL MCH 31.5 (25-34) pg MCHC 32.5 (32-36) g/dL RDW Std Deviation 55.0 H (36.4-46.3) fL RDW Coeff of Xiomara 15.6 H (11.5-14.5) % Plt Count 288 (130-400) K/uL MPV 11.0 H (7.4-10.4) fL Immature Gran % (Auto) 0.8 % Neut % (Auto) 79.6 % Lymph % (Auto) 9.0 % [place] % (Auto) 10.1 % Eos % (Auto) 0.4 % Baso % (Auto) 0.1 % Immature Gran # (Auto) 0.14 H (0.00-0.02) K/uL Neut # (Auto) 13.77 H (1.4-6.5) K/uL Lymph # (Auto) 1.55 (1.2-3.4) K/uL [place] # (Auto) 1.75 H (0.11-0.59) K/uL Eos # (Auto) 0.07 (0-0.5) K/uL Baso # (Auto) 0.01 (0-0.2) K/uL PT 10.7 (9.0-12.0) Seconds INR 1.0 (0.9-1.1) APTT 23.1 (21.0-31.0) Seconds PTT Ratio 0.9 ABG pH (7.35-7.45) ABG pCO2 (35-46) mmHg ABG pO2 (80-95) mm/Hg ABG HCO3 (19-24) mmol/L ABG O2 Saturation (90-95) % ABG Base Excess (-9-1.8) mEq/L Michael Test (Pos) Barometric Pressure mm/Hg Oxygen Given POC Sodium (135-144) mEq/L Sodium 130 L (136-145) mmol/L POC Potassium (3.3-5.0) mEq/L Potassium 4.8 (3.5-5.1) mmol/L POC Chloride (101-112) mEq/L Chloride 96 L (98-107) mmol/L Carbon Dioxide 28 (21-32) mmol/L POC Total CO2 (24-31) mEq/l Anion Gap 6.0 (3-11) POC Anion Gap (16-25) mmol/L POC BUN (7-18) mg/dl BUN 74 H (7-18) mg/dl Creatinine 1.71 H (0.6-1.2) mg/dl POC Creatinine (0.6-1.3) mg/dl Est Cr Clr Drug Dosing 31.9 ml/min Est GFR ( Amer) 32.7 Est GFR (Non-Af Amer) 28.2 BUN/Creatinine Ratio 43.1 H (10-20) Glucose 200 H (70-99) mg/dl POC Glucose (other) (70-99) mg/dl Lactate (0.4-2.0) mmol/L Calcium 9.0 (8.5-10.1) mg/dl POC Ioniz Calcium Neisha (1.12-1.32) mmol/l Magnesium 2.6 H (1.8-2.4) mg/dl Total Bilirubin 1.1 H (0.2-1) mg/dl AST 22 (15-37) U/L ALT 55 (12-78) U/L Alkaline Phosphatase 121 H (45-117) U/L Total Creatine Kinase 18 L (26-192) U/L CK-MB (CK-2) 1.3 (0.5-3.6) ng/ml CK/CKMB % Calc 7.2 H (0-3.0) Troponin I < 0.015 (0-0.045) ng/ml NT-Pro-B Natriuret Pep 3409 H (0-1800) pg/ml Total Protein 6.9 (6.4-8.2) gm/dl Albumin 2.9 L (3.4-5.0) gm/dl Globulin 4.0 (2.5-4.0) gm/dl Albumin/Globulin Ratio 0.7 L (0.9-2) Urine Color Urine Appearance (Clear) Urine pH (4.5-7.5) Ur Specific [place] (1.000-1.030) Urine Protein (Negative) Urine Glucose (UA) (Negative) Urine Ketones (Negative) Urine Blood (Negative) Urine Nitrite (Negative) Urine Bilirubin (Negative) Urine Urobilinogen (Negative) Ur Leukocyte Esterase (Negative) Urine WBC (Auto) (0-5) /hpf Urine RBC (Auto) (0-4) /hpf U Hyaline Cast (Auto) (0-5) /lpf U Epithel Cells (Auto) (0-5) /lpf Urine Bacteria (Auto) (Negative) Blood Type Antibody Screen 09/08/19 09/08/19 09/08/19 Range/Units 00:07 00:32 00:41 WBC (4.8-10.8) K/uL RBC (4.2-5.4) M/uL Hgb (12.0-16.0) g/dL POC Hgb 14.3 (12.0-16.0) g/dl Hct (37-47) % POC Hct 42 (37-47) % MCV (80-100) fL MCH (25-34) pg MCHC (32-36) g/dL RDW Std Deviation (36.4-46.3) fL RDW Coeff of Xiomara (11.5-14.5) % Plt Count (130-400) K/uL MPV (7.4-10.4) fL Immature Gran % (Auto) % Neut % (Auto) % Lymph % (Auto) % [place] % (Auto) % Eos % (Auto) % Baso % (Auto) % Immature Gran # (Auto) (0.00-0.02) K/uL Neut # (Auto) (1.4-6.5) K/uL Lymph # (Auto) (1.2-3.4) K/uL [place] # (Auto) (0.11-0.59) K/uL Eos # (Auto) (0-0.5) K/uL Baso # (Auto) (0-0.2) K/uL PT (9.0-12.0) Seconds INR (0.9-1.1) APTT (21.0-31.0) Seconds PTT Ratio ABG pH (7.35-7.45) ABG pCO2 (35-46) mmHg ABG pO2 (80-95) mm/Hg ABG HCO3 (19-24) mmol/L ABG O2 Saturation (90-95) % ABG Base Excess (-9-1.8) mEq/L Michael Test (Pos) Barometric Pressure mm/Hg Oxygen Given POC Sodium 130 L (135-144) mEq/L Sodium (136-145) mmol/L POC Potassium 4.9 (3.3-5.0) mEq/L Potassium (3.5-5.1) mmol/L POC Chloride 96 L (101-112) mEq/L Chloride (98-107) mmol/L Carbon Dioxide (21-32) mmol/L POC Total CO2 28 (24-31) mEq/l Anion Gap (3-11) POC Anion Gap 12.0 L (16-25) mmol/L POC BUN 73 H (7-18) mg/dl BUN (7-18) mg/dl Creatinine (0.6-1.2) mg/dl POC Creatinine 1.7 H (0.6-1.3) mg/dl Est Cr Clr Drug Dosing ml/min Est GFR ( Amer) Est GFR (Non-Af Amer) BUN/Creatinine Ratio (10-20) Glucose (70-99) mg/dl POC Glucose (other) 202 H (70-99) mg/dl Lactate 1.8 (0.4-2.0) mmol/L Calcium (8.5-10.1) mg/dl POC Ioniz Calcium Neisha 1.11 L (1.12-1.32) mmol/l Magnesium (1.8-2.4) mg/dl Total Bilirubin (0.2-1) mg/dl AST (15-37) U/L ALT (12-78) U/L Alkaline Phosphatase (45-117) U/L Total Creatine Kinase (26-192) U/L CK-MB (CK-2) (0.5-3.6) ng/ml CK/CKMB % Calc (0-3.0) Troponin I (0-0.045) ng/ml NT-Pro-B Natriuret Pep (0-1800) pg/ml Total Protein (6.4-8.2) gm/dl Albumin (3.4-5.0) gm/dl Globulin (2.5-4.0) gm/dl Albumin/Globulin Ratio (0.9-2) Urine Color Yellow Urine Appearance Turbid A (Clear) Urine pH 5.5 (4.5-7.5) Ur Specific [place] 1.013 (1.000-1.030) Urine Protein Trace H (Negative) Urine Glucose (UA) Negative (Negative) Urine Ketones Negative (Negative) Urine Blood 2+ H (Negative) Urine Nitrite Positive A (Negative) Urine Bilirubin Negative (Negative) Urine Urobilinogen Negative (Negative) Ur Leukocyte Esterase 3+ H (Negative) Urine WBC (Auto) >30 H (0-5) /hpf Urine RBC (Auto) 10-30 H (0-4) /hpf U Hyaline Cast (Auto) 1-5 (0-5) /lpf U Epithel Cells (Auto) >30 H (0-5) /lpf Urine Bacteria (Auto) 4+ H (Negative) Blood Type Antibody Screen 09/08/19 09/08/19 09/08/19 Range/Units 02:24 02:24 02:24 WBC (4.8-10.8) K/uL RBC (4.2-5.4) M/uL Hgb 12.4 (12.0-16.0) g/dL POC Hgb (12.0-16.0) g/dl Hct 38.2 (37-47) % POC Hct (37-47) % MCV (80-100) fL MCH (25-34) pg MCHC (32-36) g/dL RDW Std Deviation (36.4-46.3) fL RDW Coeff of Xiomara (11.5-14.5) % Plt Count (130-400) K/uL MPV (7.4-10.4) fL Immature Gran % (Auto) % Neut % (Auto) % Lymph % (Auto) % [place] % (Auto) % Eos % (Auto) % Baso % (Auto) % Immature Gran # (Auto) (0.00-0.02) K/uL Neut # (Auto) (1.4-6.5) K/uL Lymph # (Auto) (1.2-3.4) K/uL [place] # (Auto) (0.11-0.59) K/uL Eos # (Auto) (0-0.5) K/uL Baso # (Auto) (0-0.2) K/uL PT (9.0-12.0) Seconds INR (0.9-1.1) APTT (21.0-31.0) Seconds PTT Ratio ABG pH 7.30 L (7.35-7.45) ABG pCO2 42 (35-46) mmHg ABG pO2 85 (80-95) mm/Hg ABG HCO3 20 (19-24) mmol/L ABG O2 Saturation 96.0 H (90-95) % ABG Base Excess -6.1 (-9-1.8) mEq/L Michael Test Pos (Pos) Barometric Pressure 733.9 mm/Hg Oxygen Given 5L O2 POC Sodium (135-144) mEq/L Sodium (136-145) mmol/L POC Potassium (3.3-5.0) mEq/L Potassium (3.5-5.1) mmol/L POC Chloride (101-112) mEq/L Chloride (98-107) mmol/L Carbon Dioxide (21-32) mmol/L POC Total CO2 (24-31) mEq/l Anion Gap (3-11) POC Anion Gap (16-25) mmol/L POC BUN (7-18) mg/dl BUN (7-18) mg/dl Creatinine (0.6-1.2) mg/dl POC Creatinine (0.6-1.3) mg/dl Est Cr Clr Drug Dosing ml/min Est GFR ( Amer) Est GFR (Non-Af Amer) BUN/Creatinine Ratio (10-20) Glucose (70-99) mg/dl POC Glucose (other) (70-99) mg/dl Lactate (0.4-2.0) mmol/L Calcium (8.5-10.1) mg/dl POC Ioniz Calcium Neisha (1.12-1.32) mmol/l Magnesium (1.8-2.4) mg/dl Total Bilirubin (0.2-1) mg/dl AST (15-37) U/L ALT (12-78) U/L Alkaline Phosphatase (45-117) U/L Total Creatine Kinase (26-192) U/L CK-MB (CK-2) (0.5-3.6) ng/ml CK/CKMB % Calc (0-3.0) Troponin I (0-0.045) ng/ml NT-Pro-B Natriuret Pep (0-1800) pg/ml Total Protein (6.4-8.2) gm/dl Albumin (3.4-5.0) gm/dl Globulin (2.5-4.0) gm/dl Albumin/Globulin Ratio (0.9-2) Urine Color Urine Appearance (Clear) Urine pH (4.5-7.5) Ur Specific [place] (1.000-1.030) Urine Protein (Negative) Urine Glucose (UA) (Negative) Urine Ketones (Negative) Urine Blood (Negative) Urine Nitrite (Negative) Urine Bilirubin (Negative) Urine Urobilinogen (Negative) Ur Leukocyte Esterase (Negative) Urine WBC (Auto) (0-5) /hpf Urine RBC (Auto) (0-4) /hpf U Hyaline Cast (Auto) (0-5) /lpf U Epithel Cells (Auto) (0-5) /lpf Urine Bacteria (Auto) (Negative) Blood Type O Positive Antibody Screen NEGATIVE Imaging Data Radiologist's Impression: [facility] [place], [place] [phone] XRay Report Patient: EDEL DOMINGUEZ Date: 09/08/19 MR#: [id number]: [address] Y[address] Acct ID:[id number]: JORGE Date: [address] Zip: [place] [address] Age: 78Location: 2S Sex: F Room/Bed: [facility] Att Phy: Spencer Escalona, MDDiagnosis: RESPIRATORY FAILURE Antonella Phy: Heartkayleneide, NittanyService Date: 09/08/19 Fam Phy:Interpreting Phy: Tavares Coe MD Admit Phy: Johnny Anders MD Ordering Phy: Irving Walker MD cc: ~ XR chest 1V portable CLINICAL HISTORY: Sepsis dyspnea COMPARISON STUDY: 05/08/2016 FINDINGS: Increased cardiac size. Bibasilar parenchymal infiltrates versus congestive failure. Pulmonary apices are clear. IMPRESSION: Bibasilar parenchymal infiltrates versus congestive heart failure. The above report was generated using voice recognition software. It may contain grammatical, syntax or spelling errors. Electronically signed by: Tavares Coe M.D. 09/08/2019 6:23 AM Dictated: 09/08/19619 Transcribed: 09/08/19619 T angio chest PE protocol CT DOSE: 857.52 mGy.cm HISTORY: 78 years-old Female with PE. Acute shortness of breath with chest pain TECHNIQUE: Multiple CTA images of the chest were obtained after the intravenous administration of 86 ml Optiray 320. Coronal and sagittal MIPS were obtained from the axial data set and were submitted for review. All measurements were obtained according to NASCET criteria. A dose lowering technique was utilized adhering to the principles of ALARA. COMPARISON: Chest radiograph of same day, chest CT 06/30/2013 FINDINGS: CTA: Moderate cardiomegaly. No pericardial effusion. The left heart structures are not well opacified secondary to contrast bolus timing. Aortic annular and coronary arterial calcifications are noted. No thoracic aortic aneurysm identified. Extensive calcified plaque of the thoracic aorta. Reflux of contrast into the IVC and hepatic veins. The pulmonary artery is opacified to the subsegmental branches. The distal segmental and subsegmental branches, notably within the lung bases are suboptimally evaluated secondary to respiratory motion artifact. No filling defects identified to suggest pulmonary thromboembolic disease. CT CHEST: Unremarkable thyroid. No mediastinal or hilar adenopathy. 6 mm lymph node versus vessel of the medial subpleural fat distribution on image 140 series 4. P rominent bilateral epicardial fat pads. 2.0 x 1.1 cm lymph node of the right epicardial fat pad on image 79 series 4 previously measured 7 x 4 mm on the 2013 exam. Trace right and small left pleural effusions. Bilateral bronchial wall thickening. Dependent left basilar consolidation suggests compressive atelectasis. Patchy groundglass with nodular consolidative opacities are present within all lobes bilaterally. Mild bilateral subpleural reticulation suggest associated fibrotic changes. Consolidation of the lingula and right middle lobe is also present. Decreased AP dimension of the trachea and bronchi with tracheobronchial secretions. No acute process of the imaged upper abdomen. Mild thickening of the bilateral adrenal glands suggests adrenal hyperplasia. Subacute healing anterolateral left third through seventh rib fractures. Healed remote right-sided rib fractures. IMPRESSION: 1. Cardiomegaly without evidence of pulmonary thromboembolic disease. 2. Trace right and small left pleural effusions with mild left basilar compressive atelectasis. 3. Multilobar patchy nodular consolidative and groundglass opacities suggest multifocal pneumonia. 4. Tracheomalacia with tracheobronchial secretions. 5. Enlarged lymph node of the right epicardial fat pad, 2.0 x 1.1 cm. 6. Healing subacute nondisplaced fractures of the anterolateral left third through seventh ribs. The above report was generated using voice recognition software. It may contain grammatical, syntax or spelling errors. Electronically signed by: Jamil Ta M.D. 09/08/2019 6:53 AM Dictated: 09/08/19643 Transcribed: 09/08/19643 ECG Data Attestation: I personally reviewed and interpreted this ECG as follows: Indication: + tachycardia Rate (beats per minute): 150 Rhythm: + atrial fibrillation (with RVR) ECG Intervals/blocks: + Normal QT-c ECG [place]: + Normal ECG ST segments: no ST depression and no ST elevation Change: the following changes noted (Pt new onset Afib) Blood Pressure Blood Pressure Findings: Low blood pressure MDM Narrative This is a 78-year-old female who presents emergency department with a very fast heart rate. The patient appears to be fluid overloaded on chest x-ray therefore she was given Lasix after the bleeding from her nosebleed was controlled by myself. She was also given IV labetalol for her fast heart rate. She was also given Nitropaste. Repeat examination revealed improvement in the patient's symptoms. I did discuss the case with the hospitalist service who did agree to admit the patient. Patient was in agreement with the treatment plan. Impression & Plan Atrial fibrillation with rapid ventricular response, CKD (chronic kidney di sease) stage 3, GFR 30-59 ml/min, Anemia, CHF exacerbation Discharge Plan Visit Data *Final* Discharge Date/Time: 09/08/19 05:27 Chief Complaint: Nose Bleed (Minor) Stated Complaint: Nose bleed ED Provider: Irving Walker Discharge Problem: Atrial fibrillation with rapid ventricular response, CKD (chronic kidney diseas e) stage 3, GFR 30-59 ml/min, Anemia, CHF exacerbation Patient Disposition: Admitted As Inpatient Discharge Instructions Interventions: ED Discharge Assessment Last Done: 09/08/19 05:27 Discharge Problem: Anemia Qualifiers: Anemia type: unspecified type Qualified Code(s): D64.9 - Anemia, unspecified CHF exacerbation Qualifiers: Heart failure type: unspecified Qualified Code(s): I50.9 - Heart failure, unspecified
[2019-09-11] MEDS: TRAMADOL HCL 50 MG TABLET PO PRN (19:45)
[2019-09-11] MEDS: HEPARIN SOD 5,000 UNIT/0.5 ML VIAL SQ SCH (20:09)
[2019-09-12] MEDS: LEVALBUTEROL 1.25MG/0.5ML NEB INH SCH ×4 (01:11→19:29)
[2019-09-12] MEDS: IPRATROPIUM BROMIDE NEB SOLN 0.02% 2.5 ML VIAL INH SCH ×4 (01:11→19:29)
[2019-09-12 07:36] LABS: BUN Creatinine Ratio 40.6 (10-20); Calcium 8.9 mg/dl (8.5-10.1); Creatinine Clr Calc Pharmacy 45.2 ml/min; Est GFR (African American) 55.7; Est GFR (Non-African American) 48.1; Potassium 3.6 mmol/L (3.5-5.1)
[2019-09-12] MEDS: INSULIN ASPART 100 UNITS/ML 3 ML PEN SC SCH ×4 (08:24→20:18)
[2019-09-12] MEDS: FLUTICASONE/SALMETEROL 100/50 (ADVAIR) 14 PUFF/1 INHALER INH SCH ×2 (08:25→20:18)
[2019-09-12] MEDS: FUROSEMIDE 40 MG in SYRINGE 0 ML IV SCH ×2 (08:26→16:05)
[2019-09-12] MEDS: NYSTATIN OINT 15 GM TUBE EXT SCH ×2 (08:26→20:18)
[2019-09-12] MEDS: DOXYCYCLINE HYCLATE 100 MG CAP PO SCH ×2 (08:27→20:18)
[2019-09-12] MEDS: METOPROLOL TARTRATE 25 MG TAB PO SCH ×2 (08:27→20:18)
[2019-09-12] MEDS: HEPARIN SOD 5,000 UNIT/0.5 ML VIAL SQ SCH ×2 (08:27→16:06)
[2019-09-12] MEDS: CITALOPRAM 20 MG TAB PO SCH (08:28)
[2019-09-12] MEDS: predniSONE 10 MG TABLET PO SCH (08:29)
[2019-09-12] MEDS: INSULIN GLARGINE SOLOSTAR 100 UNITS/ML 3 ML PEN SQ SCH (08:29)
[2019-09-12] MEDS: CEFEPIME 2,000 MG in SYRINGE 7.5 ML IV SCH ×2 (10:05→22:07)
--- NOTE | 2019-09-12 13:06 | Cardiology Progress Note ---
Date of Service September 11, 2019 Assessment & Plan (1) Tachycardia: (2) Chronic diastolic heart failure: (3) LBBB (left bundle branch block): Continue IV diuretic therapy and metoprolol tartrate. Anticoagulation currently contraindicated in the setting of acute epistaxis. Follow daily weight, fluid balance, GFR. Subjective Patient seen and examined at bedside. Respiratory status unchanged. Diuresing with IV Lasix. Recurrent epistaxis. Rate controlled atrial flutter noted on telemetry. Review of Systems Review of Systems: All systems reviewed & are unremarkable except as noted in HPI & below Physical Exam Constitutional: + morbidly obese Neck: normal visual inspection Respiratory: normal respiratory effort and + cough Auscultation: + rhonchi Cardiovascular: Rate/Rhythm: regular rate and regular rhythm Heart Sounds: no murmur Extremities: + edema (2+) Gastrointestinal (Abdomen): Inspection/Auscultation: abdomen normal to inspection and normal bowel sounds; abdomen not distended P ercussion/Palpation: abdomen nontender and no guarding Neurologic: PERRL, EOMI, accommodation nl, no face palsy, no dysarthria Results & Data Vital Signs (Past 12 Hours) Vital Signs Temp Pulse Pulse Resp BP Pulse Ox 09/12/19 11:11 36.4 C L 88 20 123/74 92 09/12/19 08:38 87 09/12/19 08:23 36.8 C 87 20 122/63 96 09/12/19 07:15 58 L 18 98 09/12/19 04:46 36.5 C 86 19 100/66 94 09/12/19 01:16 86 18 95
--- NOTE | 2019-09-12 13:09 | Cardiology Progress Note ---
Date of Service September 12, 2019 Assessment & Plan (1) Tachycardia: (2) Chronic diastolic heart failure: (3) LBBB (left bundle branch block): Continue IV Lasix 40 mg twice daily. Carvedilol transition to metoprolol tartrate 25 mg twice daily. Heart rate remains controlled on telemetry. Anticoagulation currently contraindicated in the setting of acute epistaxis. Follow daily weight, fluid balance, GFR. PT/OT as tolerated. Subjective Patient seen and examined the bedside. Fluid balance -1840 cc over the past 24 hours. Weight unchanged per respiratory status improving. No recurrent epistaxis. Rate controlled atrial flutter noted on telemetry. Review of Systems Review of Systems: All systems reviewed & are unremarkable except as noted in HPI & below Physical Exam Constitutional: + morbidly obese Neck: normal visual inspection Respiratory: normal respiratory effort and + cough Auscultation: + rhonchi Cardiovascular: Rate/Rhythm: regular rate and regular rhythm Heart Sounds: no murmur Extremities: + edema (2+) Gastrointestinal (Abdomen): Inspection/Auscultation: abdomen normal to inspection and normal bowel sounds; abdomen not distended Percussion/Palpation: abdomen nontender and no guarding Neurologic: PERRL, EOMI, accommodation nl, no face palsy, no dysarthria Results & Data Vital Signs (Past 12 Hours) Vital Signs Temp Pulse Pulse Resp BP Pulse Ox 09/12/19 11:11 36.4 C L 88 20 123/74 92 09/12/19 08:38 87 09/12/19 08:23 36.8 C 87 20 122/63 96 09/12/19 07:15 58 L 18 98 09/12/19 04:46 36.5 C 86 19 100/66 94 09/12/19 01:16 86 18 95
--- NOTE | 2019-09-12 15:29 | Hospitalist Progress Note ---
Date of Service September 12, 2019 Assessment & Plan (1) Respiratory failure: Acute on chronic respiratory failure with hypoxia Multifactorial: Healthcare associated pneumonia, Chronic diastolic CHF, COPD, obstructive sleep apnea Chronic oxygen dependency: 2 L while awake and 3 L at bedtime at baseline --CTA:Cardiomegaly without evidence of pulmonary thromboembolic disease. Trace right and small left pleural effusions with mild left basilar compressive atelectasis. Multilobar patchy nodular consolidative and groundglass opacities suggest multifocal pneumonia. Tracheomalacia with tracheobronchial secretions. Enlarged lymph node of the right epicardial fat pad, 2.0 x 1.1 cm. Healing subacute nondisplaced fractures of the anterolateral left third through seventh ribs. --Normal lactate levels --Blood Culture:No growth to date --Sputum Cx: Corynebacterium --Negative MRSA Screen --IV vancomycin discontinued --Continue Zosyn transitioned to cefepime, doxycycline --Continue Pulmonary Hygiene --Continue bronchodilators, prednisone --Saturating well with baseline supplemental oxygen --Taper prednisone as able --Respiratory status improved Urinary tract infection Urine culture: Citrobacter, Proteus--pansensitive Continue Zosyn transitioned to cefepime Atrial flutter with rapid ventricular response--New Onset in setting of acute infection Currently rate controlled On Coreg at home--Held due to relatively low blood pressure initially Started on metoprolol 25 mg BID Appreciate cardiology input No anticoagulation secondary to epistaxis No recurrence of epistaxis on SQ Heparin --Trial Epistaxis--Resolved Had nasal packing while in ED--patient removed voluntarily Aspirin on hold Monitor CBC No recurrence Acute on Chronic diastolic heart failure P.o. diuretics held Monitor I's and O's, daily weight, electrolytes Continue IV diuretics as per cardiology Monitor Volume status H/O SLE On chronic prednisone 10 mg daily Hypertension Blood pressure is relatively low initially Coreg, NTG on hold Normal random cortisol Blood pressure slowly improving Monitor Chronic anemia H/O iron deficiency, anemia of chronic disease Monitor CBC CKD III Baseline Cr: Mid to high 1s Monitor renal function Avoid nephrotoxic agents as able Creatinine at baseline DM II HbA1C: 8.5 Hold Oral meds Continue insulin therapy while hospitalized Hyponatremia Hypochloremia Likely secondary to diuretics Monitor electrolytes DVT Px: Trial of Heparin SQ Re: Presented with Epistaxis Code Status DNI/DNR Disposition Plan to discharge back to [facility] when medically stable Case management following Subjective Patient is seen and examined at bedside Reports generalized weakness Atrial flutter on telemetry--rate controlled Cough, shortness of breath continues to improve Denies any chest pain, shortness of breath, nausea, abdominal pain Still on IV diuretics No recurrence of epistaxis on SQ heparin Review of Systems Review of Systems: All systems reviewed & are unremarkable except as noted in HPI & below Physical Exam Physical Exam: Physical Exam: Vitals signs as noted above General Appearance: Morbidly obese, no apparent distress Head: normocephalic, Atraumatic Eyes: normal inspection, EOMI Neck: supple, Trachea midline Respiratory/Chest: Decreased breath sounds, basal crackles Cardiovascular: Irregularly irregular, No murmur Abdomen/GI:Soft, Non tender, Bowel sounds present Extremities/Musculoskelatal:normal inspection, B/L LE edema Neurologic/Psych:AAOX3, grossly no focal neurological deficits Skin: normal color, warm Results & Data Vital Signs (Past 12 Hours) Vital Signs Temp Pulse Pulse Resp BP Pulse Ox 09/12/19 15:10 86 L 09/12/19 14:01 88 18 95 09/12/19 11:11 36.4 C L 88 20 123/74 92 09/12/19 08:38 87 09/12/19 08:23 36.8 C 87 20 122/63 96 09/12/19 07:15 58 L 18 98 09/12/19 04:46 36.5 C 86 19 100/66 94 Laboratory Results [facility] 09/12/19 06:38 Sodium 141 Potassium 3.6 Chloride 104 Carbon Dioxide 34 H BUN 45 H Creatinine 1.10 D Glucose 73 Calcium 8.9
[2019-09-13] MEDS: IPRATROPIUM BROMIDE NEB SOLN 0.02% 2.5 ML VIAL INH SCH ×4 (01:02→19:50)
[2019-09-13] MEDS: LEVALBUTEROL 1.25MG/0.5ML NEB INH SCH ×4 (01:02→19:50)
[2019-09-13] MEDS: HEPARIN SOD 5,000 UNIT/0.5 ML VIAL SQ SCH ×3 (01:19→17:03)
[2019-09-13] MEDS ORDERED: XOPENEX/ATROVENT 1.25mg/0.5MG NEB COMBO NEB PRN (03:46)
[2019-09-13] MEDS: LEVALBUTEROL 1.25MG/0.5ML NEB INH PRN ×2 (03:54→21:57)
[2019-09-13] MEDS: IPRATROPIUM BROMIDE NEB SOLN 0.02% 2.5 ML VIAL INH PRN ×3 (03:54→21:57)
[2019-09-13 07:47] LABS: Hematocrit (blood only) 38.4 % (37-47)
[2019-09-13] MEDS: INSULIN ASPART 100 UNITS/ML 3 ML PEN SC SCH ×4 (08:03→20:53)
[2019-09-13] MEDS: CITALOPRAM 20 MG TAB PO SCH (08:04)
[2019-09-13] MEDS: FLUTICASONE/SALMETEROL 100/50 (ADVAIR) 14 PUFF/1 INHALER INH SCH ×2 (08:04→20:51)
[2019-09-13] MEDS: predniSONE 10 MG TABLET PO SCH (08:05)
[2019-09-13] MEDS: FUROSEMIDE 40 MG in SYRINGE 0 ML IV SCH ×2 (08:05→17:04)
[2019-09-13] MEDS: METOPROLOL TARTRATE 25 MG TAB PO SCH ×2 (08:05→20:51)
[2019-09-13] MEDS: NYSTATIN OINT 15 GM TUBE EXT SCH ×2 (08:06→20:51)
[2019-09-13] MEDS: DOXYCYCLINE HYCLATE 100 MG CAP PO SCH ×2 (08:06→20:51)
[2019-09-13] MEDS: INSULIN GLARGINE SOLOSTAR 100 UNITS/ML 3 ML PEN SQ SCH (08:07)
[2019-09-13 08:23] LABS: BUN Creatinine Ratio 34.2 (10-20); Calcium 9.1 mg/dl (8.5-10.1); Creatinine Clr Calc Pharmacy 39.2 ml/min; Est GFR (African American) 47.7; Est GFR (Non-African American) 41.2; Magnesium 2.2 mg/dl (1.8-2.4); Potassium 3.4 mmol/L (3.5-5.1)
[2019-09-13] MEDS: CEFEPIME 2,000 MG in SYRINGE 7.5 ML IV SCH ×2 (10:22→22:25)
[2019-09-13] MEDS ORDERED: POTASSIUM CHLORIDE 20 MEQ TABCR PO ONE (20:45)
--- NOTE | 2019-09-13 22:52 | Hospitalist Progress Note ---
Date of Service September 13, 2019 Assessment & Plan (1) Pneumonia: Chest x-ray and CT chest at time of admission showed patchy infiltrates. WBC was elevated. Multilobar pneumonia. Receiving doxycycline and cefepime. (2) UTI (urinary tract infection): (present on admission) Urine culture 09/06/19 grew Citrobacter freundii and Proteus mirabilis. Treated with course of antibiotics. (3) Chronic diastolic heart failure: Chronic left ventricular diastolic heart failure, underlying hypertensive heart disease. Chest x-ray at time of admission showed pulmonary edema. Pro-BNP elevated. Acute on chronic left ventricular diastolic heart failure. Continue IV furosemide. Check follow-up chest x-ray. (4) Atrial flutter: ? new onset. Continue metoprolol for rate control. Epistaxis resolved- start warfarin tomorrow with caution. (5) Hypertension: Continue metoprolol. (6) Chronic respiratory failure: Chronic hypoxic respiratory failure due to restrictive lung disease. Continue supplemental O2. (7) CKD (chronic kidney disease) stage 3, GFR 30-59 ml/min: CKD III with baseline creatinine 1.2 - 1.7. Creatinine today = 1.25. Follow. (8) Systemic lupus erythematosus: Continue chronic steroids. (9) Renal mass: Left renal mass measuring at least 6 cm incidentally noted on CT pelvis 08/25/19. Needs evaluation if / when medical status permits. Will not address at this time due to cardiopulmonary status. (10) Dementia: Monitor for delirium. (11) Do not resuscitate status: As noted. (12) DVT prophylaxis: SQ heparin. (13) Discharge planning issues: Anticipated return to [facility] when medically stable. Subjective Recheck for multiple problems. Patient seen in their room around 1330. Tired. Dyspneic with minimal exertion. Occasional cough. No chest pain. Telemetry reviewed- atrial flutter with controlled rate most of the time, but intermittent tachycardia. No further epistaxis. Review of Systems: Constitutional- no fever. Cardiac- as noted above. Pulmonary- no cough or SOB. GI- + nausea; no vomiting, diarrhea, melena, hematochezia. - Herrera catheter. Otherwise, as noted above. Physical Exam Constitutional: no acute distress Eyes: + anicteric sclerae Respiratory: no respiratory distress Auscultation: + rales (bibasilar) Cardiovascular: Rate/Rhythm: regular rate and regular rhythm Heart Sounds: no gallop (none appreciated) Vessels: + JVD Extremities: + edema (1+ pretibial); no calf tenderness Gastrointestinal (Abdomen): normal bowel sounds, soft, nontender, no hepatosplenomegaly Skin: no rashes, warm and dry Psychiatric: Orientation: alert and oriented x 3 Results & Data Vital Signs (Past 12 Hours) Vital Signs Temp Pulse Resp BP Pulse Ox 09/13/19 21:57 88 16 98 09/13/19 19:54 86 19 98 09/13/19 19:30 36.4 C L 90 19 130/82 95 09/13/19 15:50 36.6 C 86 19 134/82 94 09/13/19 13:30 87 18 95 09/13/19 11:33 36.8 C 80 18 121/77 93 Laboratory Results 09/13/19 07:08 09/13/19 07:08
[2019-09-14] MEDS: HEPARIN SOD 5,000 UNIT/0.5 ML VIAL SQ SCH ×4 (00:52→22:10)
[2019-09-14] MEDS: LEVALBUTEROL 1.25MG/0.5ML NEB INH SCH ×4 (01:09→18:27)
[2019-09-14] MEDS: IPRATROPIUM BROMIDE NEB SOLN 0.02% 2.5 ML VIAL INH SCH ×4 (01:09→18:27)
--- NOTE | 2019-09-14 06:58 | XRay Report ---
XR chest 1V portable CLINICAL HISTORY: CHF COMPARISON STUDY: 09/08/2019 FINDINGS: The heart is enlarged. There is persistent bilateral interstitial thickening likely represe nting mild congestive failure. Trace pleural effusions are suspected. There is no lobar consolidation . There is a prominent right cardiophrenic angle fat pad.[ IMPRESSION: Persistent cardiomegaly and interstitial thickening, likely representing mild congestive failure. Trace pleural effusions are suspected. Electronically signed by: Roland Castro M.D. 09/14/2019 6:56 AM
[2019-09-14 08:17] LABS: Prothrombin Time 10.5 Seconds (9.0-12.0)
[2019-09-14 08:35] LABS: Calcium 9.5 mg/dl (8.5-10.1); Creatinine Clr Calc Pharmacy 39.9 ml/min; Est GFR (African American) 48.2; Est GFR (Non-African American) 41.6; Potassium 3.6 mmol/L (3.5-5.1)
[2019-09-14] MEDS: INSULIN ASPART 100 UNITS/ML 3 ML PEN SC SCH ×4 (08:43→20:36)
[2019-09-14] MEDS: INSULIN GLARGINE SOLOSTAR 100 UNITS/ML 3 ML PEN SC SCH (08:44)
[2019-09-14] MEDS: DOXYCYCLINE HYCLATE 100 MG CAP PO SCH ×2 (09:19→20:33)
[2019-09-14] MEDS: predniSONE 10 MG TABLET PO SCH (09:19)
[2019-09-14] MEDS: FUROSEMIDE 40 MG in SYRINGE 0 ML IV SCH (09:20)
[2019-09-14] MEDS: METOPROLOL TARTRATE 25 MG TAB PO SCH ×2 (09:20→20:33)
[2019-09-14] MEDS: CITALOPRAM 20 MG TAB PO SCH (09:20)
[2019-09-14] MEDS: FLUTICASONE/SALMETEROL 100/50 (ADVAIR) 14 PUFF/1 INHALER INH SCH ×2 (09:21→20:34)
[2019-09-14] MEDS: NYSTATIN OINT 15 GM TUBE EXT SCH ×2 (09:21→20:34)
[2019-09-14] MEDS: CEFEPIME 2,000 MG in SYRINGE 7.5 ML IV SCH ×2 (09:24→22:03)
--- NOTE | 2019-09-14 11:07 | Cardiology Progress Note ---
Date of Service September 14, 2019 Assessment & Plan (1) Tachycardia: (2) Chronic diastolic heart failure: (3) LBBB (left bundle branch block): Discontinue IV Lasix. Transition to oral Lasix 80 mg twice daily (outpatient dose). Carvedilol transition to metoprolol tartrate 25 mg twice daily. Metoprolol tartrate may be transitioned to Toprol-XL 50 mg daily at time of discharge. Heart rate remains controlled on telemetry. Anticoagulation currently contraindicated in the setting of acute epistaxis. Follow daily weight, fluid balance, GFR. PT/OT as tolerated. Outpatient cardiology follow- up in 4 weeks. Cardiology will sign off at this time. Please call with questions. Subjective Patient seen examined at bedside. Respiratory status improved. Fluid balance - 2.1 L over the past 24 hours. Renal function remained stable. No recurrent epistaxis. Rate controlled atrial flutter noted on telemetry. Patient offers no new concerns/complaints this time. Review of Systems Review of Systems: All systems reviewed & are unremarkable except as noted in HPI & below Physical Exam Constitutional: + morbidly obese Neck: normal visual inspection Respiratory: normal respiratory effort Auscultation: no crackles, no rales, no rhonchi and no wheezes Cardiovascular: Rate/Rhythm: regular rate and regular rhythm Heart Sounds: no murmur Extremities: + edema (2+) Gastrointestinal (Abdomen): Inspection/Auscultation: abdomen normal to inspection and normal bowel sounds; abdomen not distended Percussion/Palpation: abdomen nontender and no guarding Neurologic: PERRL, EOMI, accommodation nl, no face palsy, no dysarthria Results & Data Vital Signs (Past 12 Hours) Vital Signs Temp Pulse Resp BP Pulse Ox 09/14/19 07:36 36.4 C L 93 H 18 123/78 91 09/14/19 06:56 88 22 95 09/14/19 02:54 36.7 C 94 H 16 132/83 99 09/14/19 01:09 88 16 99 09/13/19 23:09 36.7 C 66 20 122/79 98
[2019-09-14] MEDS: FUROSEMIDE 80 MG TAB PO SCH (17:21)
[2019-09-14] MEDS: WARFARIN SOD 4 MG TAB PO SCH (17:21)
--- NOTE | 2019-09-14 20:06 | Hospitalist Progress Note ---
Date of Service September 14, 2019 Assessment & Plan (1) Pneumonia: Chest x-ray and CT chest at time of admission showed patchy infiltrates. WBC was elevated. Multilobar pneumonia. Receiving doxycycline and cefepime. (2) UTI (urinary tract infection): (present on admission) Urine culture 09/06/19 grew Citrobacter freundii and Proteus mirabilis. Treated with course of antibiotics. (3) Chronic diastolic heart failure: Chronic left ventricular diastolic heart failure, underlying hypertensive heart disease. Chest x-ray at time of admission showed pulmonary edema. Pro-BNP elevated. Acute on chronic left ventricular diastolic heart failure. Received IV furosemide with improvement. Transition to furosemide 80 mg PO BID. (4) Atrial fibrillation: ? new onset. Continue metoprolol for rate control. Not receiving full anticoagulation because of epistaxis. (5) Atrial flutter: As noted above. (6) Hypertension: Continue metoprolol. (7) Chronic respiratory failure: Chronic hypoxic respiratory failure due to restrictive lung disease. Continue supplemental O2. (8) CKD (chronic kidney disease) stage 3, GFR 30-59 ml/min: CKD III with baseline creatinine 1.2 - 1.7. Creatinine today = 1.24. Follow. (9) Systemic lupus erythematosus: Continue chronic steroids. (10) Renal mass: Left renal mass measuring at least 6 cm incidentally noted on CT pelvis 08/25/19. Needs evaluation if / when medical status permits. Will not address at this time due to cardiopulmonary status. (11) Dementia: Monitor for delirium. (12) Do not resuscitate status: As noted. (13) DVT prophylaxis: SQ heparin. (14) Discharge planning issues: Anticipated return to [facility] when medically stable. Subjective Recheck for multiple problems. Patient seen in their room around 1630. Cough and dyspnea a little better than yesterday. Still experiencing fatigue and dyspnea with minimal exertion (e.g., ambulating to bathroom). Review of Systems: Constitutional- no fever. Cardiac- as noted above. Pulmonary- no cough or SOB. GI- no vomiting, diarrhea, melena, hematochezia. - Herrera catheter. Otherwise, as noted above. Physical Exam Constitutional: no acute distress Eyes: + anicteric sclerae Respiratory: no respiratory distress Auscultation: + rales (bibasilar) Cardiovascular: Rate/Rhythm: + irregularly irregular Heart Sounds: no gallop (none appreciated) Vessels: + JVD Extremities: + edema (1+ pretibial); no calf tenderness Gastrointestinal (Abdomen): normal bowel sounds, soft, nontender, no hepatosplenomegaly Skin: no rashes, warm and dry Psychiatric: Orientation: alert and oriented x 3 Genitourinary: + bladder abnormality (Herrera cath) Results & Data Vital Signs (Past 12 Hours) Vital Signs Temp Pulse Pulse Resp BP BP Pulse Ox 09/14/19 19:00 36.5 C 83 18 127/75 90 09/14/19 18:27 97 H 18 95 09/14/19 15:16 36.8 C 88 18 126/77 94 09/14/19 12:20 87 114/76 09/14/19 11:15 36.5 C 87 18 118/20 L 95 Laboratory Results 09/13/19 07:08 09/14/19 07:25 Diagnostic Findings Chest x-ray reviewed by the undersigned and formally interpreted by Radiology: FINDINGS: The heart is enlarged. There is persistent bilateral interstitial thickening likely representing mild congestive failure. Trace pleural effusions are suspected. There is no lobar consolidation. There is a prominent right cardiophrenic angle fat pad.[ IMPRESSION: Persistent cardiomegaly and interstitial thickening, likely representing mild congestive failure. Trace pleural effusions are suspected. Electronically signed by: Roland Castro M.D. 09/14/2019 6:56 AM
[2019-09-15] MEDS: IPRATROPIUM BROMIDE NEB SOLN 0.02% 2.5 ML VIAL INH SCH ×4 (01:07→19:11)
[2019-09-15] MEDS: LEVALBUTEROL 1.25MG/0.5ML NEB INH SCH ×4 (01:07→19:11)
[2019-09-15] MEDS: FLUTICASONE/SALMETEROL 100/50 (ADVAIR) 14 PUFF/1 INHALER INH SCH ×2 (08:08→20:01)
[2019-09-15] MEDS: CITALOPRAM 20 MG TAB PO SCH (08:08)
[2019-09-15] MEDS: predniSONE 20 MG TAB PO SCH (08:08)
[2019-09-15] MEDS: DOXYCYCLINE HYCLATE 100 MG CAP PO SCH ×2 (08:08→20:02)
[2019-09-15] MEDS: METOPROLOL TARTRATE 25 MG TAB PO SCH ×2 (08:08→20:02)
[2019-09-15] MEDS: FUROSEMIDE 80 MG TAB PO SCH ×2 (08:09→17:11)
[2019-09-15] MEDS: INSULIN GLARGINE SOLOSTAR 100 UNITS/ML 3 ML PEN SC SCH (08:09)
[2019-09-15] MEDS: INSULIN ASPART 100 UNITS/ML 3 ML PEN SC SCH ×4 (08:09→21:11)
[2019-09-15] MEDS: NYSTATIN OINT 15 GM TUBE EXT SCH ×2 (08:11→20:02)
[2019-09-15 08:16] LABS: Prothrombin Time 10.5 Seconds (9.0-12.0)
[2019-09-15] MEDS: WARFARIN SOD 4 MG TAB PO SCH (17:11)
[2019-09-15] MEDS ORDERED: OXYMETAZOLINE 0.05% 30 ML BTL PRN (20:42)
--- NOTE | 2019-09-15 20:42 | Hospitalist Progress Note ---
Date of Service September 15, 2019 Assessment & Plan (1) Pneumonia: Chest x-ray and CT chest at time of admission showed patchy infiltrates. WBC was elevated. Multilobar pneumonia. Receiving doxycycline and cefepime. Afebrile. (2) UTI (urinary tract infection): (present on admission) Urine culture 09/06/19 grew Citrobacter freundii and Proteus mirabilis. Treated with course of antibiotics. (3) Chronic diastolic heart failure: Chronic left ventricular diastolic heart failure, underlying hypertensive heart disease. Chest x-ray at time of admission showed pulmonary edema. Pro-BNP elevated. Acute on chronic left ventricular diastolic heart failure. Received IV furosemide with improvement. Transitioned to furosemide 80 mg PO BID. (4) Atrial fibrillation: ? new onset. Continue metoprolol for rate control. Did not initially receive full anticoagulation because of epistaxis. Try warfarin with caution. (5) Atrial flutter: As noted above. (6) Hypertension: Continue metoprolol. (7) Chronic respiratory failure: Chronic hypoxic respiratory failure due to restrictive lung disease. Continue supplemental O2. (8) CKD (chronic kidney disease) stage 3, GFR 30-59 ml/min: CKD III with baseline creatinine 1.2 - 1.7. Creatinine 09/14 = 1.24. Follow. (9) Systemic lupus erythematosus: Continue chronic steroids. (10) Renal mass: Left renal mass measuring at least 6 cm incidentally noted on CT pelvis 08/25/19. Needs evaluation if / when medical status permits. Will not address at this time due to cardiopulmonary status. (11) Dementia: Monitor for delirium. (12) Do not resuscitate status: As noted. (13) DVT prophylaxis: Received SQ heparin- held for recurrent epistaxis. SCD's. Ambulate as able. (14) Discharge planning issues: Anticipated return to [facility] when medically stable. Subjective Recheck for multiple problems. Patient seen in their room around 1640. Feels better today. Out of bed for a while. Cough / dyspnea improved. Had an episode of epistaxis last evening, none today. Review of Systems: Constitutional- no fever. Cardiac- as noted above. Pulmonary- as noted above. GI- no vomiting, diarrhea, melena, hematochezia. - Herrera catheter. Otherwise, as noted above. Physical Exam Constitutional: no acute distress Eyes: + anicteric sclerae Respiratory: no respiratory distress Auscultation: + rales (bibasilar) Cardiovascular: Rate/Rhythm: + irregularly irregular Heart Sounds: no gallop (none appreciated) Vessels: + JVD Extremities: + edema (1+ pretibial); no calf tenderness Gastrointestinal (Abdomen): normal bowel sounds, soft, nontender, no hepatosplenomegaly Skin: no rashes, warm and dry Psychiatric: Orientation: alert and oriented x 3 Genitourinary: + bladder abnormality (Herrera cath) Results & Data Vital Signs (Past 12 Hours) Vital Signs Temp Pulse Resp BP Pulse Ox 09/15/19 19:35 36.7 C 87 18 101/67 96 09/15/19 19:14 96 H 18 96 09/15/19 15:36 36.9 C 91 H 18 108/67 96 09/15/19 13:27 90 17 96 09/15/19 11:40 36.5 C 86 18 101/67 92 Laboratory Results 09/13/19 07:08 09/14/19 07:25
[2019-09-16] MEDS: IPRATROPIUM BROMIDE NEB SOLN 0.02% 2.5 ML VIAL INH SCH ×4 (01:27→19:15)
[2019-09-16] MEDS: LEVALBUTEROL 1.25MG/0.5ML NEB INH SCH ×4 (01:28→19:15)
[2019-09-16] MEDS: IPRATROPIUM BROMIDE NEB SOLN 0.02% 2.5 ML VIAL INH PRN (03:56)
[2019-09-16] MEDS: LEVALBUTEROL 1.25MG/0.5ML NEB INH PRN (03:56)
[2019-09-16 07:41] LABS: INR 1.2 (0.9-1.1); Prothrombin Time 11.9 Seconds (9.0-12.0)
[2019-09-16] MEDS: INSULIN ASPART 100 UNITS/ML 3 ML PEN SC SCH ×4 (08:13→20:40)
[2019-09-16] MEDS: INSULIN GLARGINE SOLOSTAR 100 UNITS/ML 3 ML PEN SC SCH (08:14)
[2019-09-16] MEDS: FLUTICASONE/SALMETEROL 100/50 (ADVAIR) 14 PUFF/1 INHALER INH SCH ×2 (08:14→20:39)
[2019-09-16] MEDS: CITALOPRAM 20 MG TAB PO SCH (08:14)
[2019-09-16] MEDS: METOPROLOL TARTRATE 25 MG TAB PO SCH ×2 (08:15→20:40)
[2019-09-16] MEDS: NYSTATIN OINT 15 GM TUBE EXT SCH ×2 (08:15→20:40)
[2019-09-16] MEDS: FUROSEMIDE 80 MG TAB PO SCH ×2 (08:15→17:58)
[2019-09-16] MEDS: DOXYCYCLINE HYCLATE 100 MG CAP PO SCH (08:16)
[2019-09-16] MEDS: predniSONE 20 MG TAB PO SCH (08:16)
[2019-09-16 08:18] LABS: BUN Creatinine Ratio 32.6 (10-20); Calcium 9.5 mg/dl (8.5-10.1); Creatinine Clr Calc Pharmacy 38.8 ml/min; Est GFR (African American) 47.7; Est GFR (Non-African American) 41.2
[2019-09-16] MEDS: POTASSIUM CHLORIDE 20 MEQ TABCR PO SCH ×2 (09:05→20:40)
[2019-09-16] MEDS: WARFARIN SOD 4 MG TAB PO SCH (16:41)
--- NOTE | 2019-09-16 18:58 | Hospitalist Progress Note ---
Date of Service September 16, 2019 Assessment & Plan (1) Pneumonia: Chest x-ray and CT chest at time of admission showed patchy infiltrates. WBC was elevated. Multilobar pneumonia. Received doxycycline and cefepime x 7 days with improvement. Afebrile. (2) UTI (urinary tract infection): (present on admission) Urine culture 09/06/19 grew Citrobacter freundii and Proteus mirabilis. Treated with course of antibiotics. (3) Chronic diastolic heart failure: Chronic left ventricular diastolic heart failure, underlying hypertensive heart disease. Chest x-ray at time of admission showed pulmonary edema. Pro-BNP elevated. Acute on chronic left ventricular diastolic heart failure. Received IV furosemide with improvement. Transitioned to furosemide 80 mg PO BID. (4) Atrial fibrillation: New onset. Continue metoprolol for rate control. Did not initially receive full anticoagulation because of epistaxis. High risk for cardioembolic event- AF + suspected renal tumor. Starting warfarin with caution. Risks and benefits of anticoagulation discussed with son who prefers trying anticoagulation. (5) Atrial flutter: As noted above. (6) Hypertension: Continue metoprolol. (7) Chronic respiratory failure: Chronic hypoxic respiratory failure due to restrictive lung disease. Continue supplemental O2. (8) CKD (chronic kidney disease) stage 3, GFR 30-59 ml/min: CKD III with baseline creatinine 1.2 - 1.7. Creatinine 09/14 = 1.25. Follow. (9) Hypokalemia: Serum K 3.0. Replace. Follow. (10) Systemic lupus erythematosus: Continue chronic steroids. (11) Renal mass: Left renal mass measuring at least 6 cm incidentally noted on CT pelvis 08/05 11/22. Needs evaluation if / when medical status permits. Will not address at this time due to cardiopulmonary status. Discussed with deysi Hutchison. (12) Dementia: Monitor for delirium. (13) Urinary catheter in place: Voiding trial. (14) Do not resuscitate status: As noted. (15) DVT prophylaxis: Received SQ heparin- held for recurrent epistaxis. SCD's. Ambulate as able. (16) Discharge planning issues: Anticipated return to [facility] when medically stable. Deysi Hutchison given update by phone today. Subjective Recheck for multiple problems. Patient seen in their room around 0940. Tachycardic with minimal exertion. Tired. Cough & dyspnea improved. No chest pain. No further epistaxis. Review of Systems: Constitutional- no fever. Cardiac- as noted above. Pulmonary- as noted above. GI- no vomiting, diarrhea, melena, hematochezia. - Herrera catheter. Otherwise, as noted above. Physical Exam Constitutional: no acute distress Eyes: + anicteric sclerae Respiratory: no respiratory distress Auscultation: + rales (bibasilar, few) Cardiovascular: Rate/Rhythm: + irregularly irregular Heart Sounds: no gallop (none appreciated) Vessels: + JVD Extremities: + edema (1+ pretibial); no calf tenderness Gastrointestinal (Abdomen): normal bowel sounds, soft, nontender, no hepatosplenomegaly Skin: no rashes, warm and dry Psychiatric: Orientation: alert and oriented x 3 Genitourinary: + bladder abnormality (Herrera cath) Results & Data Vital Signs (Past 12 Hours) Vital Signs Temp Pulse Pulse Resp BP Pulse Ox 09/16/19 15:41 36.8 C 76 18 122/83 95 09/16/19 15:30 88 09/16/19 13:08 109 H 18 97 09/16/19 10:53 36.5 C 81 19 118/79 96 09/16/19 07:31 91 H 09/16/19 07:20 88 18 93 09/16/19 07:00 36.5 C 87 19 124/81 95 Laboratory Results Laboratory Results - last 24 hr 09/15/19 09/16/19 09/16/19 20:45 06:45 06:45 PT 11.9 INR 1.2 H Sodium 140 Potassium 3.0 L D Chloride 99 Carbon Dioxide 35 H Anion Gap 6.0 BUN 41 H Creatinine 1.25 H Est Cr Clr Drug Dosing 38.8 Est GFR ( Amer) 47.7 Est GFR (Non-Af Amer) 41.2 BUN/Creatinine Ratio 32.6 H Glucose 87 POC Glucose 146 H Calcium 9.5 Magnesium 09/16/19 09/16/19 09/16/19 06:45 07:13 11:23 PT INR Sodium Potassium Chloride Carbon Dioxide Anion Gap BUN Creatinine Est Cr Clr Drug Dosing Est GFR ( Amer) Est GFR (Non-Af Amer) BUN/Creatinine Ratio Glucose POC Glucose 95 238 H Calcium Magnesium 2.1 09/16/19 16:14 PT INR Sodium Potassium Chloride Carbon Dioxide Anion Gap BUN Creatinine Est Cr Clr Drug Dosing Est GFR ( Amer) Est GFR (Non-Af Amer) BUN/Creatinine Ratio Glucose POC Glucose 171 H Calcium Magnesium
[2019-09-16] MEDS ORDERED: POTASSIUM CHLORIDE 20 MEQ TABCR PO ONE (19:30)
[2019-09-17] MEDS: IPRATROPIUM BROMIDE NEB SOLN 0.02% 2.5 ML VIAL INH SCH ×4 (01:03→19:16)
[2019-09-17] MEDS: LEVALBUTEROL 1.25MG/0.5ML NEB INH SCH ×4 (01:03→19:16)
[2019-09-17 07:28] LABS: INR 1.6 (0.9-1.1); Prothrombin Time 15.9 Seconds (9.0-12.0)
[2019-09-17 07:48] LABS: Calcium 9.4 mg/dl (8.5-10.1); Creatinine Clr Calc Pharmacy 40.4 ml/min; Est GFR (African American) 51.2; Est GFR (Non-African American) 44.1; Potassium 3.6 mmol/L (3.5-5.1)
[2019-09-17] MEDS: FLUTICASONE/SALMETEROL 100/50 (ADVAIR) 14 PUFF/1 INHALER INH SCH ×2 (09:01→20:17)
[2019-09-17] MEDS: POTASSIUM CHLORIDE 20 MEQ TABCR PO SCH ×2 (09:02→20:18)
[2019-09-17] MEDS: predniSONE 20 MG TAB PO SCH (09:02)
[2019-09-17] MEDS: CITALOPRAM 20 MG TAB PO SCH (09:02)
[2019-09-17] MEDS: METOPROLOL TARTRATE 25 MG TAB PO SCH ×2 (09:02→20:18)
[2019-09-17] MEDS: NYSTATIN OINT 15 GM TUBE EXT SCH ×2 (09:02→20:18)
[2019-09-17] MEDS: FUROSEMIDE 80 MG TAB PO SCH ×2 (09:02→17:20)
[2019-09-17] MEDS: INSULIN ASPART 100 UNITS/ML 3 ML PEN SC SCH ×4 (09:03→20:37)
[2019-09-17] MEDS: INSULIN GLARGINE SOLOSTAR 100 UNITS/ML 3 ML PEN SC SCH (09:03)
[2019-09-17] MEDS: SODIUM CHLORIDE 0.65% NA SOLN 45 ML (OCEAN) SCH ×3 (14:10→20:17)
[2019-09-17] MEDS: WARFARIN SOD 4 MG TAB PO SCH (17:21)
--- NOTE | 2019-09-17 18:53 | Hospitalist Progress Note ---
Date of Service September 17, 2019 Assessment & Plan (1) Pneumonia: Chest x-ray and CT chest at time of admission showed patchy infiltrates. WBC was elevated. Multilobar pneumonia. Received doxycycline and cefepime x 7 days with improvement. Afebrile. (2) UTI (urinary tract infection): (present on admission) Urine culture 09/06/19 grew Citrobacter freundii and Proteus mirabilis. Treated with course of antibiotics. (3) Chronic diastolic heart failure: Chronic left ventricular diastolic heart failure, underlying hypertensive heart disease. Chest x-ray at time of admission showed pulmonary edema. Pro-BNP elevated. Acute on chronic left ventricular diastolic heart failure. Received IV furosemide with improvement. Transitioned to furosemide 80 mg PO BID. (4) Atrial fibrillation: New onset. Continue metoprolol for rate control. Did not initially receive full anticoagulation because of epistaxis. High risk for cardioembolic event- AF + suspected renal tumor. Starting warfarin with caution. Risks and benefits of anticoagulation discussed with patient and son who prefer trying anticoagulation. (5) Atrial flutter: As noted above. (6) Hypertension: Continue metoprolol. (7) Chronic respiratory failure: Chronic hypoxic respiratory failure due to restrictive lung disease. Continue supplemental O2. (8) CKD (chronic kidney disease) stage 3, GFR 30-59 ml/min: CKD III with baseline creatinine 1.2 - 1.7. Creatinine today = 1.18. Follow. (9) Hypokalemia: Serum K as low as 3.0. Replaced. K today = 3.6. Follow. (10) Systemic lupus erythematosus: Continue chronic steroids. (11) Renal mass: Left renal mass measuring at least 6 cm incidentally noted on CT pelvis 08/25/19. Discussed with patient and son. At high risk for any invasive procedures due to cardiopulmonary status. Check urine cytology. (12) Dementia: Monitor for delirium. (13) Do not resuscitate status: As noted. (14) DVT prophylaxis: Received SQ heparin- held for recurrent epistaxis. SCD's. Ambulate as able. (15) Discharge planning issues: Anticipated return to [facility] when medically stable. Abe Hutchison given update by phone today. Subjective Recheck for multiple problems. Patient seen in their room around 1110. Feels a little better today. Out of bed in chair. Cough & dyspnea improved. No chest pain. No further epistaxis. Review of Systems: Constitutional- no fever. Cardiac- as noted above. Pulmonary- as noted above. GI- no vomiting, diarrhea, melena, hematochezia. - Herrera catheter removed yesterday, voiding without difficulty. Otherwise, as noted above. Physical Exam Constitutional: no acute distress Eyes: + anicteric sclerae Respiratory: no respiratory distress Auscultation: no rales Cardiovascular: Rate/Rhythm: + irregularly irregular Heart Sounds: no gallop (none appreciated) Vessels: + JVD Extremities: + edema (1+ p retibial); no calf tenderness Gastrointestinal (Abdomen): normal bowel sounds, soft, nontender, no hepatosplenomegaly Skin: no rashes, warm and dry Psychiatric: Orientation: alert and oriented x 3 Genitourinary: + bladder abnormality (Herrera cath) Results & Data Vital Signs (Past 12 Hours) Vital Signs Temp Pulse Resp BP Pulse Ox 09/17/19 15:07 36.5 C 85 20 112/63 93 09/17/19 13:18 84 16 95 09/17/19 11:30 36.6 C 87 19 104/63 96 09/17/19 07:21 86 16 96 09/17/19 07:05 36.6 C 84 19 132/80 97 Laboratory Results Laboratory Results - last 24 hr 09/16/19 09/17/19 09/17/19 20:15 06:50 06:50 PT 15.9 H INR 1.6 H Sodium 141 Potassium 3.6 D Chloride 100 Carbon Dioxide 36 H Anion Gap 5.0 BUN 43 H Creatinine 1.18 Est Cr Clr Drug Dosing 40.4 Est GFR ( Amer) 51.2 Est GFR (Non-Af Amer) 44.1 BUN/Creatinine Ratio 36.0 H Glucose 107 H POC Glucose 122 H Calcium 9.4 09/17/19 09/17/19 09/17/19 07:35 11:18 16:06 PT INR Sodium Potassium Chloride Carbon Dioxide Anion Gap BUN Creatinine Est Cr Clr Drug Dosing Est GFR ( Amer) Est GFR (Non-Af Amer) BUN/Creatinine Ratio Glucose POC Glucose 104 H 176 H 221 H Calcium
[2019-09-18] MEDS: IPRATROPIUM BROMIDE NEB SOLN 0.02% 2.5 ML VIAL INH SCH ×4 (01:09→19:12)
[2019-09-18] MEDS: LEVALBUTEROL 1.25MG/0.5ML NEB INH SCH ×4 (01:09→19:12)
[2019-09-18 07:48] LABS: INR 2.7 (0.9-1.1); Prothrombin Time 25.4 Seconds (9.0-12.0)
[2019-09-18 08:08] LABS: BUN Creatinine Ratio 35.3 (10-20); Calcium 9.5 mg/dl (8.5-10.1); Creatinine Clr Calc Pharmacy 40.2 ml/min; Est GFR (African American) 51.2; Est GFR (Non-African American) 44.1; Potassium 3.4 mmol/L (3.5-5.1)
[2019-09-18] MEDS: POTASSIUM CHLORIDE 20 MEQ TABCR PO SCH ×2 (08:11→20:12)
[2019-09-18] MEDS: FUROSEMIDE 80 MG TAB PO SCH ×2 (08:11→17:19)
[2019-09-18] MEDS: METOPROLOL TARTRATE 25 MG TAB PO SCH ×2 (08:11→19:33)
[2019-09-18] MEDS: CITALOPRAM 20 MG TAB PO SCH (08:11)
[2019-09-18] MEDS: FLUTICASONE/SALMETEROL 100/50 (ADVAIR) 14 PUFF/1 INHALER INH SCH ×2 (08:11→20:11)
[2019-09-18] MEDS: predniSONE 10 MG TABLET PO SCH (08:11)
[2019-09-18] MEDS: NYSTATIN OINT 15 GM TUBE EXT SCH ×2 (08:13→20:12)
[2019-09-18] MEDS: INSULIN GLARGINE SOLOSTAR 100 UNITS/ML 3 ML PEN SC SCH (08:13)
[2019-09-18] MEDS: INSULIN ASPART 100 UNITS/ML 3 ML PEN SC SCH ×4 (08:14→20:16)
[2019-09-18] MEDS: SODIUM CHLORIDE 0.65% NA SOLN 45 ML (OCEAN) SCH ×4 (08:14→20:11)
--- NOTE | 2019-09-18 17:30 | Hospitalist Progress Note ---
Date of Service September 18, 2019 Assessment & Plan (1) Pneumonia: Chest x-ray and CT chest at time of admission showed patchy infiltrates. WBC was elevated. Multilobar pneumonia. Received doxycycline and cefepime x 7 days with improvement. Afebrile. (2) UTI (urinary tract infection): (present on admission) Urine culture 09/06/19 grew Citrobacter freundii and Proteus mirabilis. Treated with course of antibiotics. (3) Chronic diastolic heart failure: Chronic left ventricular diastolic heart failure, underlying hypertensive heart disease. Chest x-ray at time of admission showed pulmonary edema. Pro-BNP elevated. Acute on chronic left ventricular diastolic heart failure. Received IV furosemide with improvement. Transitioned to furosemide 80 mg PO BID. (4) Atrial fibrillation: New onset. Continue metoprolol for rate control. Did not initially receive full anticoagulation because of epistaxis. High risk for cardioembolic event- AF + suspected renal tumor. Starting warfarin with caution. Risks and benefits of anticoagulation discussed with patient and son who prefer trying anticoagulation for stroke prevention. (5) Atrial flutter: As noted above. (6) Hypertension: Continue metoprolol. (7) Chronic respiratory failure: Chronic hypoxic respiratory failure due to restrictive lung disease. Continue supplemental O2. (8) CKD (chronic kidney disease) stage 3, GFR 30-59 ml/min: CKD III with baseline creatinine 1.2 - 1.7. Creatinine today = 1.18. Follow. (9) Hypokalemia: Serum K as low as 3.0. Receiving replacement. K today = 3.4. Follow. (10) Systemic lupus erythematosus: Continue chronic steroids. (11) Renal mass: Left renal mass measuring at least 6 cm incidentally noted on CT pelvis 08/25/19. Discussed with patient and son. At high risk for any invasive procedures due to cardiopulmonary status. Urine cytology negative x 2. (12) Dementia: Monitor for delirium. (13) Do not resuscitate status: As noted. (14) DVT prophylaxis: Received SQ heparin- held for recurrent epistaxis. Now on warfarin. SCD's. Ambulate as able. (15) Discharge planning issues: Anticipated return to [facility] when medically stable. Subjective Recheck for multiple problems. Patient seen in their room around 1115. Out of bed in chair this morning. Feels a bit better every day. Cough & dyspnea improved. No chest pain. No further epistaxis. Review of Systems: Constitutional- no fever. Cardiac- as noted above. Pulmonary- as noted above. GI- no vomiting, diarrhea, melena, hematochezia. - voiding without difficulty. Otherwise, as noted above. Physical Exam Constitutional: no acute distress Eyes: + anicteric sclerae Respiratory: no respiratory distress Auscultation: no rales Cardiovascular: Rate/Rhythm: + irregularly irregular Heart Sounds: no gallop (none appreciated) Vessels: + JVD Extremities: + edema (1+ p retibial); no calf tenderness Gastrointestinal (Abdomen): normal bowel sounds, soft, nontender, no hepatosplenomegaly Skin: no rashes, warm and dry Psychiatric: Orientation: alert and oriented x 3 Results & Data Vital Signs (Past 12 Hours) Vital Signs Temp Pulse Pulse Resp BP Pulse Ox 09/18/19 15:55 36.5 C 109 H 18 115/69 96 09/18/19 15:49 112 H 09/18/19 13:09 101 H 16 96 09/18/19 11:10 36.4 C L 88 19 111/77 95 09/18/19 07:13 86 16 94 09/18/19 07:06 36.5 C 86 19 122/78 94 Laboratory Results Laboratory Results - last 24 hr 09/17/19 09/18/19 09/18/19 20:27 00:01 06:53 PT 25.4 H INR 2.7 H Sodium Potassium Chloride Carbon Dioxide Anion Gap BUN Creatinine Est Cr Clr Drug Dosing Est GFR ( Amer) Est GFR (Non-Af Amer) BUN/Creatinine Ratio Glucose POC Glucose 322 H* 92 Calcium 09/18/19 09/18/19 09/18/19 06:53 07:18 11:18 PT INR Sodium 142 Potassium 3.4 L Chloride 101 Carbon Dioxide 35 H Anion Gap 5.0 BUN 42 H Creatinine 1.18 Est Cr Clr Drug Dosing 40.2 Est GFR ( Amer) 51.2 Est GFR (Non-Af Amer) 44.1 BUN/Creatinine Ratio 35.3 H Glucose 95 POC Glucose 95 146 H Calcium 9.5 09/18/19 09/18/19 16:06 16:07 PT INR Sodium Potassium Chloride Carbon Dioxide Anion Gap BUN Creatinine Est Cr Clr Drug Dosing Est GFR ( Amer) Est GFR (Non-Af Amer) BUN/Creatinine Ratio Glucose POC Glucose 325 H* 304 H* Calcium
[2019-09-19] MEDS: IPRATROPIUM BROMIDE NEB SOLN 0.02% 2.5 ML VIAL INH SCH ×4 (01:23→19:21)
[2019-09-19] MEDS: LEVALBUTEROL 1.25MG/0.5ML NEB INH SCH ×4 (01:23→19:21)
[2019-09-19 07:36] LABS: INR 2.5 (0.9-1.1); Prothrombin Time 24.4 Seconds (9.0-12.0)
[2019-09-19 07:55] LABS: BUN Creatinine Ratio 34.3 (10-20); Creatinine Clr Calc Pharmacy 36.5 ml/min; Est GFR (African American) 45.5; Est GFR (Non-African American) 39.3; Potassium 3.3 mmol/L (3.5-5.1)
[2019-09-19] MEDS: FLUTICASONE/SALMETEROL 100/50 (ADVAIR) 14 PUFF/1 INHALER INH SCH ×2 (08:03→20:35)
[2019-09-19] MEDS: CITALOPRAM 20 MG TAB PO SCH (08:03)
[2019-09-19] MEDS: FUROSEMIDE 80 MG TAB PO SCH ×2 (08:03→17:53)
[2019-09-19] MEDS: POTASSIUM CHLORIDE 20 MEQ TABCR PO SCH ×3 (08:04→20:36)
[2019-09-19] MEDS: METOPROLOL TARTRATE 25 MG TAB PO SCH ×3 (08:04→20:36)
[2019-09-19] MEDS: predniSONE 10 MG TABLET PO SCH (08:04)
[2019-09-19] MEDS: SODIUM CHLORIDE 0.65% NA SOLN 45 ML (OCEAN) SCH ×4 (08:05→20:35)
[2019-09-19] MEDS: NYSTATIN OINT 15 GM TUBE EXT SCH ×2 (08:05→20:37)
[2019-09-19] MEDS: INSULIN GLARGINE SOLOSTAR 100 UNITS/ML 3 ML PEN SC SCH (08:05)
[2019-09-19] MEDS: INSULIN ASPART 100 UNITS/ML 3 ML PEN SC SCH ×4 (08:06→20:38)
--- NOTE | 2019-09-19 19:42 | Hospitalist Progress Note ---
Date of Service September 19, 2019 Assessment & Plan (1) Pneumonia: Chest x-ray and CT chest at time of admission showed patchy infiltrates. WBC was elevated. Multilobar pneumonia. Received doxycycline and cefepime x 7 days with improvement. Afebrile. (2) UTI (urinary tract infection): (present on admission) Urine culture 09/06/19 grew Citrobacter freundii and Proteus mirabilis. Treated with course of antibiotics. (3) Chronic diastolic heart failure: Chronic left ventricular diastolic heart failure, underlying hypertensive heart disease. Chest x-ray at time of admission showed pulmonary edema. Pro-BNP elevated. Acute on chronic left ventricular diastolic heart failure. Received IV furosemide with improvement. Transitioned to furosemide 80 mg PO BID. Monitor wts, exam, BMP. (4) Atrial fibrillation: New onset atrial fibrillation / flutter. Currently receiving metoprolol tartrate 25 mg BID. Ventricular rate still fast, especially with activity. Increase metoprolol tartrate to 25 mg TID. Continue to monitor VS / telemetry. If BP too low on increased dose of metoprolol, consider decreasing dose and adding digoxin. Did not initially receive full anticoagulation because of epistaxis. High risk for cardioembolic event- AF + suspected renal tumor. Starting warfarin with caution- INR goal range 2.0 - 2.5. Risks and benefits of anticoagulation discussed with patient and son who prefer trying anticoagulation for stroke prevention. Fall precautions. (5) Atrial flutter: As noted above. (6) Hypertension: Continue metoprolol. (7) Chronic respiratory failure: Chronic hypoxic respiratory failure due to restrictive lung disease. Continue supplemental O2. (8) CKD (chronic kidney disease) stage 3, GFR 30-59 ml/min: CKD III with baseline creatinine 1.2 - 1.7. Creatinine today = 1.30. Follow. (9) Hypokalemia: Serum K as low as 3.0. Receiving replacement- 20 mEQ TID. K today = 3.3. Follow. (10) Systemic lupus erythematosus: Continue chronic steroids. (11) Renal mass: Left renal mass measuring at least 6 cm incidentally noted on CT pelvis 08/25/19. Discussed with patient and son. Urine cytology negative x 2. At high risk for any invasive procedures due to cardiopulmonary status. Not a good candidate for biopsy, ablation, resection. (12) Dementia: Monitor for delirium. (13) Decubitus ulcer: Pressure ulcer of left buttock, stage 3, (present on admission). Wound Care Nursing consulted. Local care. Avoid pressure. (14) Epistaxis: Had episodes of epistaxis before this admission and early in hospital stay. New onset AF at high risk for cardioembolic events. Benefits and risks of anticoagulation discussed with patient and son. They would like to use warfarin for stroke prevention. Patient currently tolerating warfarin with therapeutic INR. Try to keep INR in low therapeutic range. Humidify O2. Saline nasal spray QID. Afrin PRN for epistaxis. (15) Do not resuscitate status: Patient has a living will. She does not wish to have resuscitation attempted in the event of a cardiopulmonary arrest. (16) DVT prophylaxis: Received SQ heparin- held for recurrent epistaxis. Now on warfarin. SCD's. Ambulate as able. (17) Discharge planning issues: Anticipated return to [facility] when medically stable. Still titrating cardiovascular meds and increasing activity. Son Foster given update by phone this evening. Subjective Recheck for multiple problems. Patient seen in their room around 1900. Tachycardic with minimal activity, sometimes sustained with HR 140-150. Cough & dyspnea improved. No chest pain. No further epistaxis. Review of Systems: Constitutional- no fever. Cardiac- as noted above. Pulmonary- as noted above. GI- no vomiting, diarrhea, melena, hematochezia. - voiding without difficulty. Otherwise, as noted above. Physical Exam Constitutional: no acute distress Eyes: + anicteric sclerae Respiratory: no respiratory distress Auscultation: lungs clear to auscultation bilaterally Cardiovascular: Rate/Rhythm: + irregularly irregular Heart Sounds: no gallop (none appreciated) Vessels: + JVD Extremities: + edema (1+ pretibial); no calf tenderness Gastrointestinal (Abdomen): normal bowel sounds, soft, nontender, no hepatosplenomegaly Skin: no rashes, warm and dry Psychiatric: Orientation: alert and oriented x 3 Genitourinary: + bladder abnormality (Herrera cath) Results & Data Vital Signs (Past 12 Hours) Vital Signs Temp Pulse Pulse Resp BP Pulse Ox 09/19/19 19:27 86 17 97 09/19/19 19:02 37.0 C 105 H 20 95/62 L 92 09/19/19 17:13 129 H 09/19/19 15:13 36.6 C 107 H 18 118/74 93 09/19/19 13:30 103 H 18 95 09/19/19 12:14 37.3 C 115 H 20 104/65 95 Laboratory Results Laboratory Results - last 24 hr 09/19/19 09/19/19 09/19/19 06:57 06:57 07:39 PT 24.4 H INR 2.5 H Sodium 140 Potassium 3.3 L Chloride 101 Carbon Dioxide 33 H Anion Gap 6.0 BUN 45 H Creatinine 1.30 H Est Cr Clr Drug Dosing 36.5 Est GFR ( Amer) 45.5 Est GFR (Non-Af Amer) 39.3 BUN/Creatinine Ratio 34.3 H Glucose 102 H POC Glucose 103 H Calcium 9.0 09/19/19 09/19/19 09/19/19 11:26 16:20 20:21 PT INR Sodium Potassium Chloride Carbon Dioxide Anion Gap BUN Creatinine Est Cr Clr Drug Dosing Est GFR ( Amer) Est GFR (Non-Af Amer) BUN/Creatinine Ratio Glucose POC Glucose 173 H 241 H 148 H Calcium
[2019-09-20] MEDS: IPRATROPIUM BROMIDE NEB SOLN 0.02% 2.5 ML VIAL INH SCH ×4 (01:17→19:09)
[2019-09-20] MEDS: LEVALBUTEROL 1.25MG/0.5ML NEB INH SCH ×4 (01:17→19:10)
[2019-09-20 07:24] LABS: Prothrombin Time 19.8 Seconds (9.0-12.0)
[2019-09-20 07:52] LABS: BUN Creatinine Ratio 33.5 (10-20); Calcium 8.6 mg/dl (8.5-10.1); Creatinine Clr Calc Pharmacy 37.5 ml/min; Est GFR (African American) 50.1; Est GFR (Non-African American) 43.3; Potassium 3.4 mmol/L (3.5-5.1)
[2019-09-20] MEDS: POTASSIUM CHLORIDE 20 MEQ TABCR PO SCH ×3 (08:35→20:24)
[2019-09-20] MEDS: predniSONE 10 MG TABLET PO SCH (08:45)
[2019-09-20] MEDS: CITALOPRAM 20 MG TAB PO SCH (08:45)
[2019-09-20] MEDS: INSULIN ASPART 100 UNITS/ML 3 ML PEN SC SCH ×4 (08:46→20:22)
[2019-09-20] MEDS: FLUTICASONE/SALMETEROL 100/50 (ADVAIR) 14 PUFF/1 INHALER INH SCH ×2 (08:48→20:22)
[2019-09-20] MEDS: INSULIN GLARGINE SOLOSTAR 100 UNITS/ML 3 ML PEN SC SCH (08:48)
[2019-09-20] MEDS: NYSTATIN OINT 15 GM TUBE EXT SCH ×2 (08:49→20:23)
[2019-09-20] MEDS: SODIUM CHLORIDE 0.65% NA SOLN 45 ML (OCEAN) SCH ×4 (08:49→20:23)
[2019-09-20] MEDS: METOPROLOL TARTRATE 25 MG TAB PO SCH ×3 (09:28→20:23)
[2019-09-20] MEDS: FUROSEMIDE 80 MG TAB PO SCH ×2 (14:20→18:11)
[2019-09-20] MEDS: WARFARIN SOD 2 MG TAB PO SCH (15:46)
--- NOTE | 2019-09-20 16:32 | Hospitalist Progress Note ---
Date of Service September 20, 2019 Assessment & Plan (1) Pneumonia: Chest x-ray and CT chest at time of admission showed patchy infiltrates. Multilobar pneumonia. Received doxycycline and cefepime x 7 days with improvement. Resolved (2) UTI (urinary tract infection): (present on admission) Urine culture 09/06/19 grew Citrobacter freundii and Proteus mirabilis. Completed course of antibiotics. (3) Chronic diastolic heart failure: Acute on Chronic diastolic heart failure Chest x-ray at time of admission showed pulmonary edema. Pro-BNP elevated. Received IV furosemide Continue furosemide 80 mg PO BID. Monitor volume status, daily weight, I's and O's (4) Atrial fibrillation: New onset atrial fibrillation / flutter. P.o. Coreg discontinued secondary to relatively low blood pressure Continue metoprolol tartrate to 25 mg TID. Replace electrolytes as needed On Coumadin for anticoagulation Monitor INR:2. Needs follow-up with cardiology upon discharge (5) Atrial flutter: As noted above. (6) Hypertension: Continue metoprolol. (7) Chronic respiratory failure: Chronic hypoxic respiratory failure due to restrictive lung disease. Continue supplemental O2. (8) CKD (chronic kidney disease) stage 3, GFR 30-59 ml/min: CKD III Baseline creatinine 1.2 - 1.7. Cr at baseline Monitor renal function (9) Hypokalemia: Continue potassium supplement Monitor (10) Systemic lupus erythematosus: Continue chronic steroids. (11) Renal mass: Left renal mass measuring at least 6 cm incidentally noted on CT pelvis 08/25/19. Discussed with patient and son by Urine cytology negative x 2. At high risk for any invasive procedures due to cardiopulmonary status. Not a good candidate for biopsy, ablation, resection. Follow up as outpatient (12) Dementia: Monitor for delirium. (13) Decubitus ulcer: Pressure ulcer of left buttock, stage 3, (present on admission). Wound Care Nursing consulted. Continue local wound care (14) Epistaxis: Resolved Humidify supplemental oxygen Continue saline nasal spray QID. Afrin PRN for epistaxis. (15) Do not resuscitate status: DNI/DNR (16) DVT prophylaxis: On Coumadin (17) Discharge planning issues: Plan to discharge back to [facility] when medically stable. Subjective Patient is seen and examined at bedside States feeling well today Offers no complaints Heart rate is controlled Denies any chest pain, shortness of breath, nausea, abdominal pain, dizziness Review of Systems Review of Systems: All systems reviewed & are unremarkable except as noted in HPI & below Physical Exam Physical Exam: Physical Exam: Vitals signs as noted above General Appearance: Obese, no apparent distress Head: normocephalic, Atraumatic Eyes: normal inspection, EOMI Neck: supple, Trachea midline Respiratory/Chest: Decreased breath sounds, CTA Cardiovascular: Irregularly irregular, No murmur Abdomen/GI:Soft, Non tender, Bowel sounds present Extremities/Musculoskelatal:normal inspection, B/L LE edema improved Neurologic/Psych:AAOX3, grossly no focal neurological deficits Skin: normal color, warm Results & Data Vital Signs (Past 12 Hours) Vital Signs Temp Pulse Pulse Resp BP BP Pulse Ox 09/20/19 15:01 36.6 C 78 18 108/72 94 09/20/19 13:56 85 16 94 09/20/19 13:37 85 110/71 95 09/20/19 11:58 36.8 C 62 20 91/54 L 96 09/20/19 08:40 98/67 L 09/20/19 08:10 36.5 C 82 18 91/63 L 96 09/20/19 07:07 85 18 94 Laboratory Results [facility] 09/20/19 06:37 Sodium 139 Potassium 3.4 L Chloride 101 Carbon Dioxide 32 BUN 40 H Creatinine 1.20 Glucose 110 H Calcium 8.6
[2019-09-21] MEDS: LEVALBUTEROL 1.25MG/0.5ML NEB INH SCH ×3 (01:21→13:25)
[2019-09-21] MEDS: IPRATROPIUM BROMIDE NEB SOLN 0.02% 2.5 ML VIAL INH SCH ×3 (01:21→13:25)
[2019-09-21 07:38] LABS: INR 2.1 (0.9-1.1)
[2019-09-21] MEDS: INSULIN ASPART 100 UNITS/ML 3 ML PEN SC SCH ×2 (07:50→12:07)
[2019-09-21] MEDS: CITALOPRAM 20 MG TAB PO SCH (07:51)
[2019-09-21] MEDS: FLUTICASONE/SALMETEROL 100/50 (ADVAIR) 14 PUFF/1 INHALER INH SCH (07:51)
[2019-09-21] MEDS: predniSONE 10 MG TABLET PO SCH (07:52)
[2019-09-21] MEDS: METOPROLOL TARTRATE 25 MG TAB PO SCH (07:53)
[2019-09-21] MEDS: SODIUM CHLORIDE 0.65% NA SOLN 45 ML (OCEAN) SCH ×2 (07:54→12:08)
[2019-09-21] MEDS: POTASSIUM CHLORIDE 20 MEQ TABCR PO SCH ×2 (07:54→14:44)
[2019-09-21] MEDS: INSULIN GLARGINE SOLOSTAR 100 UNITS/ML 3 ML PEN SC SCH (07:54)
[2019-09-21] MEDS: FUROSEMIDE 80 MG TAB PO SCH (07:55)
[2019-09-21] MEDS: NYSTATIN OINT 15 GM TUBE EXT SCH (07:56)
[2019-09-21 08:00] LABS: BUN Creatinine Ratio 31.9 (10-20); Calcium 8.6 mg/dl (8.5-10.1); Creatinine Clr Calc Pharmacy 42.2 ml/min; Est GFR (African American) 53.9; Est GFR (Non-African American) 46.5; Potassium 3.3 mmol/L (3.5-5.1)
[2019-09-21] MEDS ORDERED: POTASSIUM CHLORIDE 20 MEQ TABCR PO STA (08:43)
--- NOTE | 2019-09-21 11:54 | Hospitalist Progress Note ---
Date of Service September 21, 2019 Assessment & Plan (1) Pneumonia: Chest x-ray and CT chest at time of admission showed patchy infiltrates. Multilobar Pneumonia Received doxycycline and cefepime x 7 days with improvement. Resolved (2) UTI (urinary tract infection): (present on admission) Urine culture 09/06/19 grew Citrobacter freundii and Proteus mirabilis. Completed course of antibiotics. (3) Chronic diastolic heart failure: Acute on Chronic diastolic heart failure Chest x-ray at time of admission showed pulmonary edema. Pro-BNP elevated. Received IV furosemide Continue furosemide 80 mg PO BID. Monitor volume status, daily weight, I's and O's (4) Atrial fibrillation: New onset atrial fibrillation / flutter. P.o. Coreg discontinued secondary to relatively low blood pressure Discussed with on 09/21/19--Plan to discharge on Toprol XL 50mg BID Replace electrolytes as needed On Coumadin for anticoagulation Monitor INR:2. 1 Needs follow-up with cardiology upon discharge (5) Atrial flutter: As noted above. (6) Hypertension: Continue metoprolol 50mg BID (7) Chronic respiratory failure: Chronic hypoxic respiratory failure due to restrictive lung disease. Continue supplemental O2. (8) CKD (chronic kidney disease) stage 3, GFR 30-59 ml/min: CKD III Baseline creatinine 1.2 - 1.7. Cr at baseline Monitor renal function (9) Hypokalemia: Continue potassium supplement Monitor (10) Systemic lupus erythematosus: Continue chronic steroids. (11) Renal mass: Left renal mass measuring at least 6 cm incidentally noted on CT pelvis 08/25/19. Discussed with patient and son by Urine cytology negative x 2. At high risk for any invasive procedures due to cardiopulmonary status. Not a good candidate for biopsy, ablation, resection. Follow up as outpatient (12) Dementia: Monitor for delirium. (13) Decubitus ulcer: Pressure ulcer of left buttock, stage 3, (present on admission). Wound Care Nursing consulted. Continue local wound care (14) Epistaxis: Resolved Humidify supplemental oxygen Continue saline nasal spray QID. Afrin PRN for epistaxis. (15) Do not resuscitate status: DNI/DNR (16) DVT prophylaxis: On Coumadin (17) Discharge planning issues: Plan to discharge back to [facility] today. Subjective Patient is seen and examined at bedside No new complaints Denies any chest pain, shortness of breath, nausea, abdominal pain, dizziness Planned to be discharged home today Discussed with Cardiology today Review of Systems Review of Systems: All systems reviewed & are unremarkable except as noted in HPI & below Physical Exam Physical Exam: Physical Exam: Vitals signs as noted above General Appearance: Obese, no apparent distress Head: normocephalic, Atraumatic Eyes: normal inspection, EOMI Neck: supple, Trachea midline Respiratory/Chest: Decreased breath sounds, minimal basal crackles Cardiovascular: Irregularly irregular, No murmur Abdomen/GI:Soft, Non tender, Bowel sounds present Extremities/Musculoskelatal:normal inspection, B/L LE edema improved Neurologic/Psych:AAOX3, grossly no focal neurological deficits Skin: normal color, warm Results & Data Vital Signs (Past 12 Hours) Vital Signs Temp Pulse Pulse Resp BP Pulse Ox 09/21/19 08:00 86 09/21/19 07:49 36.9 C 79 18 122/63 96 09/21/19 07:00 85 18 90 09/21/19 03:25 36.4 C L 79 18 123/82 94 09/21/19 01:21 86 16 98 Laboratory Results [facility] 09/21/19 06:43 Sodium 141 Potassium 3.3 L Chloride 104 Carbon Dioxide 32 BUN 36 H Creatinine 1.13 Glucose 84 Calcium 8.6
[2019-09-21 11:58] VITALS: TEMP 97.7; O2SAT 98
--- NOTE | 2019-09-21 12:25 | Discharge Summary ---
Date of Service September 21, 2019 Admission HPI Per Admitting Provider History obtained from patient, family, and records. Patient is a fair historian secondary to dementia. 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 Recent confinement May 2016 for decompensated heart failure. As per son, patient has been at the [facility] for about a month now due to increased functional disability. 3 weeks ago patient had a fall at the half-way. Incidental finding of left renal mass possible malignancy on CT imaging. Dedicated CT study of the kidney contemplated as per records. Last night, epistaxis noted from patient's left nostril noted at half-way. Minimal improvement with local measures, decongestant Rx. Patient complaining of cough symptoms with increasing shortness of breath unrelieved by breathing treatment administered at half-way. Patient denies chest pain. Patient noted to be in rapid atrial flutter upon arrival at the ER. IV Lopressor given at the ER. Patient given Hydrocortisone, Levaquin, Zosyn. IV Lasix and Nitropaste given for possible CHF. Rhino Rocket nasal packing for epistaxis done at the ER by ER provider. Patient subsequently pulled out nasal packing. Medical History as above Surgical History : BTL, tibia surgery, appendectomy, cholecystectomy, tonsillectomy/adenoidectomy, ELICIA Family History : Bone cancer, breast cancer, lung cancer, heart disease, SLE Personal/Social history : Past tobacco abuse, no EtOH intake, retired from secretarial work, half-way resident Admission Exam Per Admitting Provider GENERAL: Slightly uncomfortable, oriented to place, obese, minimal respiratory distress SKIN: Normal color, warm HEENT: [place] palpebral conjunctivae, no ptosis, dried blood left nostril,, nasal cannula in place, dry buccal mucosa NECK : Supple, short neck, no tenderness CHEST : Decreased breath sounds, bilateral rhonchi left greater than the right, expiratory wheezes, no tenderness HEART : Tachycardic, no obvious murmurs ABDOMEN: Some distention, nontender EXTREMITIES : Minimal LE swelling, no LE tenderness, no other conspicuous deformities noted NEUROLOGIC : Coherent, oriented to time, no facial asymmetry, no other gross focality Principal Diagnosis Multifocal pneumonia Urinary tract infection Acute on chronic diastolic heart failure Atrial fibrillation with RVR Renal mass Discharge Data Allergies Allergy/AdvReac Type Severity Reaction Status Date / Time No Known Allergies Allergy Unknown Verified 09/08/19 00:35 Consultations 09/08/19 01:20 ED Decision to Admit Stat 09/08/19 05:50 Consult Cardiology Routine Procedures Performed CT Head: There is no hemorrhage, mass effect, or evidence of acute territorial ischemia by CT criteria noting a motion degraded examination. Chest CTA: 1. Cardiomegaly without evidence of pulmonary thromboembolic disease. 2. Trace right and small left pleural effusions with mild left basilar compressive atelectasis. 3. Multilobar patchy nodular consolidative and groundglass opacities suggest multifocal pneumonia. 4. Tracheomalacia with tracheobronchial secretions. 5. Enlarged lymph node of the right epicardial fat pad, 2.0 x 1.1 cm. 6. Healing subacute nondisplaced fractures of the anterolateral left third through seventh ribs. Ordered Studies 09/08/19 00:43 CT angio chest PE protocol Urgent Hospital Course (1) Pneumonia: Chest x-ray and CT chest at time of admission showed patchy infiltrates. Multilobar Pneumonia Received doxycycline and cefepime x 7 days with improvement. Resolved (2) UTI (urinary tract infection): (present on admission) Urine culture 09/06/19 grew Citrobacter freundii and Proteus mirabilis. Completed course of antibiotics. (3) Chronic diastolic heart failure: Acute on Chronic diastolic heart failure Chest x-ray at time of admission showed pulmonary edema. Pro-BNP elevated. Received IV furosemide Continue furosemide 80 mg PO BID. Monitor volume status, daily weight, I's and O's (4) Atrial fibrillation: New onset atrial fibrillation / flutter. P.o. Coreg discontinued secondary to relatively low blood pressure Discussed with on 09/21/19--Plan to discharge on Toprol XL 50mg BID Replace electrolytes as needed On Coumadin for anticoagulation Monitor INR:2. 1 Needs follow-up with cardiology upon discharge (5) Atrial flutter: As noted above. (6) Hypertension: Continue metoprolol 50mg BID (7) Chronic respiratory failure: Acute on Chronic hypoxic respiratory failure due to restrictive lung disease. Continue supplemental O2. (8) CKD (chronic kidney disease) stage 3, GFR 30-59 ml/min: CKD III Baseline creatinine 1.2 - 1.7. Cr at baseline Monitor renal function (9) Hypokalemia: Continue potassium supplement Monitor (10) Systemic lupus erythematosus: Continue chronic steroids. (11) Renal mass: Left renal mass measuring at least 6 cm incidentally noted on CT pelvis 08/25/19. Discussed with patient and son by Urine cytology negative x 2. At high risk for any invasive procedures due to cardiopulmonary status. Not a good candidate for biopsy, ablation, resection. Follow up as outpatient (12) Dementia: Monitor for delirium. (13) Decubitus ulcer: Pressure ulcer of left buttock, stage 3, (present on admission). Wound Care Nursing consulted. Continue local wound care (14) Epistaxis: Resolved Humidify supplemental oxygen Continue saline nasal spray QID. Afrin PRN for epistaxis. (15) Do not resuscitate status: DNI/DNR (16) DVT prophylaxis: On Coumadin (17) Discharge planning issues: Plan to discharge back to [facility] today. Total Time Total Time Spent Total Time Spent (In Minutes): 40 minutes Total Time Includes: Examination of the Patient, Discharge Planning, Medication Reconciliation, Communication With Other Providers and Other Discharge Plan Discharge Items Patient Disposition: Transfer [facility] Reason For Visit: RESPIRATORY FAILURE Discharge Diagnosis: Multifocal pneumonia Urinary tract infection Acute on chronic diastolic heart failure Atrial fibrillation with RVR Renal mass Activity: Resume your previous activity Exercise/Sports: Gradually increase as tolerated Non-emergency contact: Primary Care Provider, Drum Straightener and Urologist Call non-emergency contact if: you have any medication questions, your symptoms worsen, your pain is not controlled, your pain is worsening, your pain is unusual for you, your pain is concerning for you and you have a fever Follow-up/Referrals: Radha Armenta [Primary Care Provider] - Diet: Carb Consistent or DM2 and Heart Healthy Ambulatory Orders: Basic Metabolic Panel (Routine) Timeframe: 1 Week Location: Determined by Patient Ordered By: Spencer Soto Attending Provider Instructions: Follow-up with your primary care physician Dr. Reyes on September 25, 2019 at 12:00 PM Follow-up with your presentation manager Earline Peterson PA-C on October 11, 2019 at 3:00 PM Follow-up with Coumadin clinic for management of your Coumadin and monitoring your INR in 1 week Get basic metabolic panel in 1 week and follow-up with your physician with results for monitoring of your potassium levels and kidney function Follow-up with your urologist for incidental finding of left kidney mass on CT scan. Further investigations based on your urologist recommendations as outpatient. Seek immediate medical attention if your symptoms reoccur or worsen Call your Primary Care doctor if any of the following symptoms or problems start or get worse: * Shortness of breath or difficulty breathing * Wake up at night short of breath * Chest pain * Cough * Swelling of your hands, feet, or legs * More fatigued or tired with your normal activity * Palpitations - sudden fast heart beats WEIGHT * Weigh yourself every morning after using the bathroom. * Use the same scale. * Wear the same amount of clothing. * Write your weight down on a chart. * Call your Primary Care doctor if you gain more than 2-3 pounds in 1-2 days. MEDICATIONS * Use this discharge instruction sheet for medication instructions. * Take your medications at the time your doctor ordered. * Do not skip a dose of your medicines. * If you miss a dose of medicine, take it as soon as possible, but DO NOT DOUBLE A DOSE. * Read your medicine information when you get home. * Know all of the side effects of your medicine. If in doubt, ask your pharmacist * Call your Primary Care doctor's office if you have any side effects. * Be sure all of your doctors know what medicine and herbs you take (including cold, flu, and herbal medicine). Take the following with you to your follow-up doctor appointments: * Weight Chart * Medication List * List of questions Do not drink excessive alcohol, beer or wine. Pending Studies at Discharge: No Stand-Alone Forms: My [email or web address] Skilled Items Patient informed of condition?: Yes DNR: Yes Discharge Level of Care: Skilled Communicable Disease: No Discharge Prognosis: Stable Lines: None Urinary Catheter: No Medications and DC Order Prescriptions: New metoprolol succinate 50 mg Tablet Extended Release 24 Hr 50 mg PO BID Qty: 60 RF: 0 warfarin [Coumadin] 2 mg Tablet 2 mg PO DAILY@1600 Qty: 60 RF: 0 nitroglycerin [Nitrostat] 0.4 mg Tablet, Sublingual 0.4 mg sublingual UD PRN (Reason: chest pain) Qty: 30 RF: 0 sodium chloride [Saline Mist] 0.65 % Aerosol,[place] 2 spry NA QID Qty: 1 RF: 0 Continued citalopram 10 mg tablet 10 mg PO DAILY RF: 0 glipizide 5 mg Tablet 5 mg PO BID RF: 0 ferrous gluconate 324 mg (38 mg iron) tablet 324 mg PO BID RF: 0 Combivent Respimat 20-100 mcg/actuation mist 1 puff INHALATION Q6 PRN (Reason: Wheezing) RF: 0 prednisone 10 mg tablet 10 mg PO DAILY RF: 0 spironolactone 50 mg tablet 50 mg PO DAILY RF: 0 polyethylene glycol 3350 [Miralax] 17 gram/dose Powder 17 g PO DAILY RF: 0 melatonin 3 mg Tablet 6 mg PO HS RF: 0 cholecalciferol (vitamin D3) [Vitamin D3] 2,000 unit Tablet 2,000 unit PO DAILY RF: 0 Tradjenta 5 mg Tablet 5 mg PO DAILY RF: 0 furosemide [Lasix] 40 mg Tablet 80 mg PO BID RF: 0 ipratropium-albuterol 0.5 mg-3 mg(2.5 mg base)/3 mL Solution For Nebulization 3 ml INHALATION Q6 PRN (Reason: Shortness Of Breath Or Wheezing) RF: 0 clotrimazole-betamethasone [Lotrisone] 1-0.05 % Cream 1 applic TOPICAL QPM RF: 0 Incruse Ellipta 62.5 mcg/actuation Blister With Device 1 inh INHALATION DAILY RF: 0 ascorbic acid (vitamin C) 1,000 mg Tablet 1 g PO Q2D RF: 0 acetaminophen 325 mg Tablet 650 mg PO Q6H MDD 3gm/24hr PRN (Reason: temp>101) RF: 0 Calmoseptine 0.44-20.6 % Ointment 1 applic TOPICAL QS RF: 0 Breo Ellipta 100-25 mcg/dose Blister With Device 1 inh INHALATION DAILY RF: 0 metolazone 2.5 mg Tablet 2.5 mg PO Q7D RF: 0 Changed potassium chloride 20 mEq Tablet,Er Particles/Crystals 20 meq PO DAILY Qty: 0 RF: 0 Discontinued carvedilol 3.125 mg tablet 3.125 mg PO BID RF: 0 nitroglycerin 0.2 mg/hr patch 24 hour 1 patch transdermal DAILY RF: 0 aspirin [Aspirin Childrens] 81 mg Tablet,Chewable 81 mg PO DAILY RF: 0 Discharge Orders: Discharge Order (Routine); Ordered 09/21/19 Ordered By: Spencer Escalona Admission Data Admit Date/Time: 09/08/19 04:50 Attending Provider: Spencer Escalona Admit Provider: Johnny Anders Primary Care Provider: Radha Armenta Other Providers: Johnny Anders ; Brandon Meadows ; Geovany, ; Sa chad Escalona Other Interventions: Discharge Summary Assessment (RN) Last Done: 09/21/19 15:10 DC Date/Time DO NOT enter until pt leaves facility: 09/21/19 15:36
[2019-09-21 15:12] VITALS: BP 98/67; PULSE 85
[2019-09-21] MEDS: WARFARIN SOD 2 MG TAB PO SCH (15:22)
[2019-09-21] MEDS ORDERED: METOPROLOL SUCC 50MG EXT REL TAB PO SCH (21:00)
== END 2019-09-21 15:36 | DRG 193 ==
LOC: ED 23:48 → 2S 09-08 04:50 → SUATTDRO 09-08 04:50 → 2S 09-08 05:27